=== PATIENT | male | born 1950 | race Caucasian/White ===

== ENCOUNTER 2019-11-06 14:32 | Emergency (ER) | payer OTHER ==
--- NOTE | 2019-11-06 15:19 | EDM.PDOC ---
ED HPI GENERAL MEDICAL PROBLEM - General Chief Complaint: Skin Complaint Stated Complaint: CELLULITIES Time Seen by Provider: 11/06/19 15:12 Source of Information: Reports: Patient History Limitations: Reports: No Limitations - History of Present Illness INITIAL COMMENTS - FREE TEXT/NARRATIVE: Patient presents to the ER with warmth and pruritis sensation to left calf x 3- 4 days. He is concerned that cellulitis is developing because he had similar symptoms prior to developing LLE cellulitis 2 years ago. Prior history includes T2DM, RLE DVT and Right THR 08/2018. Denies fevers or chills. Duration: Day(s): (3) Severity: Mild left side lower leg Pain Score (Numeric/FACES): 10 - Related Data Allergies Allergy/AdvReac Type Severity Reaction Status Date / Time ampicillin Allergy Cannot Verified 11/06/19 15:43 Remember clindamycin Allergy Cannot Verified 11/06/19 15:43 Remember codeine Allergy Cannot Verified 11/06/19 15:43 Remember imipramine HCl Allergy Cannot Verified 11/06/19 15:43 [From Tofranil] Remember lithium [Glade] Allergy Cannot Verified 11/06/19 15:43 Remember metformin Allergy Hives Verified 11/06/19 15:43 Penicillins Allergy Swelling Verified 11/06/19 15:43 prednisone Allergy Other Verified 11/06/19 15:43 quetiapine fumarate Allergy Cannot Verified 11/06/19 15:43 [From Seroquel] Remember tramadol Allergy Cannot Verified 11/06/19 15:43 Remember Home Meds: Home Meds Albuterol Sulfate [Albuterol Sulfate HFA] 2 puff INH Q6H PRN 06/11/14 [History] Albuterol/Ipratropium [DuoNeb 3-0.5 MG/3 ML] 3 ml .XX QID PRN #50 neb 06/11/14 [ Rx] Aspirin [Adult Low Dose Aspirin EC] 1 tab PO DAILY 06/11/14 [History] Budesonide/Formoterol [Symbicort 80-4.5 MCG] 2 puff INH BID 06/11/14 [History] Cinnamon [Cinnamon Oil] 1 dose PO DAILY 06/11/14 [History] Finasteride [Proscar] 1 tab PO DAILY 06/11/14 [History] Furosemide [Lasix] 1 tab PO DAILY 06/11/14 [History] Loratadine [Claritin] 1 tab PO DAILY 06/11/14 [History] Multivitamin with Minerals [Ltf-W-Ejjv-Minerals] 1 tab PO DAILY 06/11/14 [ History] Potassium Chloride [Klor-Con 10] 1 tab PO TID 06/11/14 [History] Sennosides [Senna] 1 tab PO BID 06/11/14 [History] Sildenafil [Viagra] 1 tab PO ASDIRECTED PRN 06/11/14 [History] Tamsulosin [Flomax] 2 tab PO BEDTIME 06/11/14 [History] Testosterone Cypionate [Depo-Testosterone] 1 vial IM ASDIRECTED 06/11/14 [ History] Vitamin A Palmitate [Vitamin A] 1 tab PO DAILY 06/11/14 [History] glyBURIDE [Glyburide] 0.5 tab PO BID 06/11/14 [History] Levofloxacin [Levaquin] 500 mg PO DAILY #6 tablet 11/06/19 [Rx] Past Medical History Cardiovascular History: Reports: Blood Clots/VTE/DVT Endocrine/Metabolic History: Reports: Diabetes, Type II ED ROS GENERAL - Review of Systems Review Of Systems: Comprehensive ROS is negative, except as noted in HPI. ED EXAM, SKIN/RASH Exam: See Below Exam Limited By: No Limitations General Appearance: Alert, WD/WN, No Apparent Distress Throat/Mouth: No Airway Compromise Head: Atraumatic, Normocephalic Respiratory/Chest: No Respiratory Distress Peripheral Pulses: 2+: Dorsalis Pedis (L) Extremities: Other (mild tenderness left calf, no erythema or swelling noted.) Neurological: Alert, Normal Cognition, No Motor/Sensory Deficits Skin: Warm, Dry, Intact Course - Vital Signs Last Recorded V/S: Last Vital Signs Temp 36.8 C 11/06/19 14:32 Pulse 88 11/06/19 14:32 Resp 18 11/06/19 14:32 BP 126/52 L 11/06/19 14:32 Pulse Ox 96 11/06/19 14:32 - Orders/Labs/Meds Orders: Active Orders 24 hr Category Date Time Status VL Duplex Lwr Ext Veins Ltd Lt [US] Stat Exams 11/06/19 15:11 Ordered Labs: Laboratory Tests 11/06/19 11/06/19 Range/Units 15:17 15:17 WBC 6.4 (4.5-12.0) X10-3/uL RBC 5.30 (4.30-5.75) x10(6)uL Hgb 13.3 L (13.5-17.8) g/dL Hct 41.6 (30.0-51.3) % MCV 78.4 L (80-96) fL MCH 25.0 L (27.7-33.6) pg MCHC 31.9 L (32.2-35.4) g/dL RDW 15.1 (11.5-15.5) % Plt Count 190 (125-369) X10(3)uL MPV 7.5 (7.4-10.4) fL Neut % (Auto) 76.7 (46-82) % Lymph % (Auto) 15.2 (13-37) % Mcculloch % (Auto) 5.5 (4-12) % Eos % (Auto) 2 (1.0-5.0) % Baso % (Auto) 0 (0-2) % Neut # (Auto) 4.9 (1.6-8.3) # Lymph # (Auto) 1.0 (0.6-5.0) # Mcculloch # (Auto) 0.4 (0.0-1.3) # Eos # (Auto) 0.1 (0.0-0.8) # Baso # (Auto) 0.0 (0.0-0.2) # Sodium 143 (135-145) mmol/L Potassium 4.2 (3.5-5.3) mmol/L Chloride 104 (100-110) mmol/L Carbon Dioxide 34 H (21-32) mmol/L BUN 18 (7-18) mg/dL Creatinine 0.9 (0.70-1.30) mg/dL Est Cr Clr Drug Dosing TNP Estimated GFR (MDRD) > 60 (>60) BUN/Creatinine Ratio 20.0 (9-20) Glucose 118 H (80-116) mg/dL Calcium 9.1 (8.6-10.2) mg/dL - Radiology Interpretation Free Text/Narrative:: LLE venous doppler US: no DVT (per US tech.) - Re-Assessments/Exams Free Text/Narrative Re-Assessment/Exam: 11/06/19 16:39 Will treat with Levaquin for LLE cellulitis as patient's symptoms are similar with prior episode of cellulitis. Departure - Departure Time of Disposition: 16:39 Disposition: Home, Self-Care 01 Condition: Good Clinical Impression: Cellulitis and abscess of left leg - Discharge Information *PRESCRIPTION DRUG MONITORING PROGRAM REVIEWED*: No *COPY OF PRESCRIPTION DRUG MONITORING REPORT IN PATIENT ELINA: Not Applicable Prescriptions: Levofloxacin [Levaquin] 500 mg PO DAILY #6 tablet Instructions: Cellulitis, Adult Referrals: PCP,None [Primary Care Provider] - Forms: ED Department Discharge Additional Instructions: Fill the prescription for Levaquin and take as directed. Follow up with your primary physician in 3-4 days. Return to the ER if symptoms worsen. Sepsis Event Note - Focused Exam Vital Signs: Vital Signs Temp Pulse Resp BP Pulse Ox 11/06/19 14:32 36.8 C 88 18 126/52 L 96 Date Exam was Performed: 11/06/19 Time Exam was Performed: 16:38 - My Orders Last 24 Hours: My Active Orders 11/06/19 15:11 VL Duplex Lwr Ext Veins Ltd Lt [US] Stat - Assessment/Plan Last 24 Hours: My Active Orders 11/06/19 15:11 VL Duplex Lwr Ext Veins Ltd Lt [US] Stat
[2019-11-06] MEDS ORDERED: Levofloxacin 500 MG Tab PO ONE (16:40)
--- NOTE | 2019-11-07 11:43 | US ---
INDICATION: Left leg pain. DUPLEX ULTRASOUND, LEFT LOWER EXTREMITY VEINS: Utilizing 2-D real time, duplex Doppler spectral analysis and color flow imaging, examination of the left lower extremity veins, including the common femoral vein, proximal greater saphenous vein, proximal deep femoral vein, proximal femoral vein, mid femoral vein, distal femoral vein, popliteal vein, posterior tibial vein, anterior tibial vein , and peroneal vein, revealed no evidence of acute deep venous thrombosis or obstruction. Compression views showed no abnormal lack of compression to suggest thrombosis. No evidence of incompetence of the valves was identified. In the popliteal vein, there is suggestion of incomplete compression, although fairly good flow is seen within it. Color flow did not completely fill what appears to be the popliteal vein. This raises question of a small amount of residual deep venous thrombosis from a previous incident. We have no old comparisons on this patient and, in the absence of proof of previous thrombosis in this area, the possibility of an acute DVT is difficult to entirely exclude. This should be correlated clinically. IMPRESSION: Probably no acute left lower extremity DVT. However, it is difficult to entirely exclude a partial deep venous thrombosis at the popliteal vein in this patient. If old examination is available for comparison, it may be helpful for comparison. MTDD
== END 2019-11-06 16:55 | disposition home or self-care (01) ==
LOC: FB.ED 14:32
DX: L02.416 Cutaneous abscess of left lower limb (principal); L03.116 Cellulitis of left lower limb; E11.9 Type 2 diabetes mellitus without complications; Z79.84 Long term (current) use of oral hypoglycemic drugs; Z79.82 Long term (current) use of aspirin; Z79.899 Other long term (current) drug therapy; Z88.5 Allergy status to narcotic agent; Z88.6 Allergy status to analgesic agent; Z88.8 Allergy status to other drugs, medicaments and biological substances
CPT/HCPCS: 36415; 80048; 85025; 93971-LT; 99283; 99284-25; A9270-GY

== ENCOUNTER 2020-12-22 13:41 | Emergency (ER) | payer OTHER ==
[2020-12-22] MEDS ORDERED: Ketorolac 30 MG/ML SDV IM ONE (15:12)
--- NOTE | 2020-12-22 15:23 | EDM.PDOC ---
ED HPI GENERAL MEDICAL PROBLEM - General Chief Complaint: Skin Complaint Stated Complaint: LEFT ANKLE WOUND INFECTION Time Seen by Provider: 12/22/20 14:05 Source of Information: Reports: Patient History Limitations: Reports: No Limitations - History of Present Illness INITIAL COMMENTS - FREE TEXT/NARRATIVE: c/o LLE burning and pain pt lives alone, he bumped his LLE against the corner of a drawer that was pulled out ~2w ago, he is not sure when no d/c, no f/c/d has had inc'd pain and burning in past 2d did have cellulitis and was in hosp at [facility] 2017, apparently had a PIC line, pt thinks he has MRSA, does have allergies to several antxs labs obtained at baseline, WBC/segs are neg, however CRP inc'd 2.2 without comparison 3 findings are suggestive of cellulitis: 1) inc'd pain and burn x 2d, 2) inc'd CRP, 3) inc'd warmth there are VSD changes and there is not convincing change of color between both LEs, however above findings do suggest cellulitis pt has not cover it with a drsg, nor used support stockings, because it is difficulty for him to reach to his ankles pt declined hospitalization for vanco, altho understands that he may need to do so there is no wound clinic at [facility], Melissa at walk-in called re pt, pt prefers f/u local rather than at [facility], does not have local PCP RN Cynthia is planning on using some Aqua-Silver impregnated gauze in the small opening (5 mm across), cover this with a Mepilex drain as it can be left in place and pt does not need to change it, and then wrap the LLE with an Nick wrap pt will need to be seen weekly for CBC, CRP, drsg change for 1-2 weeks, however if he feels worse with increase burning and increase in CRP he will need to be admitted L medial ankle Pain Score (Numeric/FACES): 9 - Related Data Allergies Allergy/AdvReac Type Severity Reaction Status Date / Time ampicillin Allergy Cannot Verified 12/22/20 15:56 Remember clindamycin Allergy Cannot Verified 12/22/20 15:56 Remember codeine Allergy Cannot Verified 12/22/20 15:56 Remember imipramine HCl Allergy Cannot Verified 12/22/20 15:56 [From Tofranil] Remember lithium [Ethete] Allergy Cannot Verified 12/22/20 15:56 Remember metformin Allergy Hives Verified 12/22/20 15:56 Penicillins Allergy Swelling Verified 12/22/20 15:56 prednisone Allergy Other Verified 12/22/20 15:56 quetiapine fumarate Allergy Cannot Verified 12/22/20 15:56 [From Seroquel] Remember tramadol Allergy Cannot Verified 12/22/20 15:56 Remember Home Meds: Home Meds Albuterol Sulfate [Albuterol Sulfate HFA] 2 puff INH Q6H PRN 06/11/14 [History] Albuterol/Ipratropium [DuoNeb 3-0.5 MG/3 ML] 3 ml .XX QID PRN #50 neb 06/11/14 [Rx] Aspirin [Adult Low Dose Aspirin EC] 1 tab PO DAILY 06/11/14 [History] Budesonide/Formoterol [Symbicort 80-4.5 MCG] 2 puff INH BID 06/11/14 [History] Cinnamon [Cinnamon Oil] 1 dose PO DAILY 06/11/14 [History] Finasteride [Proscar] 1 tab PO DAILY 06/11/14 [History] Furosemide [Lasix] 1 tab PO DAILY 06/11/14 [History] Loratadine [Claritin] 1 tab PO DAILY 06/11/14 [History] Multivitamin with Minerals [Leu-L-Aekk-Minerals] 1 tab PO DAILY 06/11/14 [History] Potassium Chloride [Klor-Con 10] 1 tab PO TID 06/11/14 [History] Sennosides [Senna] 1 tab PO BID 06/11/14 [History] Sildenafil [Viagra] 1 tab PO ASDIRECTED PRN 06/11/14 [History] Tamsulosin [Flomax] 2 tab PO BEDTIME 06/11/14 [History] Testosterone Cypionate [Depo-Testosterone] 1 vial IM ASDIRECTED 06/11/14 [Hi story] Vitamin A Palmitate [Vitamin A] 1 tab PO DAILY 06/11/14 [History] glyBURIDE [Glyburide] 0.5 tab PO BID 06/11/14 [History] Levofloxacin [Levaquin] 500 mg PO DAILY #6 tablet 01/19/20 [Rx] Sulfamethoxazole/Trimethoprim [Sulfamethoxazole-Tmp Ds Tablet] 1 each PO BID #20 tablet 12/22/20 [Rx] cephALEXin [Cephalexin] 500 mg PO TID #30 tablet 12/22/20 [Rx] Past Medical History HEENT History: Reports: Other (See Below) Other 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 Cardiovascular History: Reports: Blood Clots/VTE/DVT, Hypertension Respiratory History: Reports: Asthma, COPD, Sleep Apnea Other Respiratory History: uses CPAP @ hx Gastrointestinal History: Reports: Chronic Constipation, GERD Musculoskeletal History: Reports: Arthritis Neurological History: Reports: Concussion, Migraines, Neuropathy, Diabetic Psychiatric History: Reports: Addiction, Depression, Psych Hospitalization(s), PTSD, Suicide Attempt Other Psychiatric History: hx ETOH abuse Endocrine/Metabolic History: Reports: Diabetes, Type II, Obesity/BMI 30+ Hematologic History: Reports: Anemia, Blood Transfusion(s) Oncologic (Cancer) History: Reports: Lymphoma Dermatologic History: Reports: Cellulitis - Infectious Disease History Infectious Disease History: Reports: Mumps - Past Surgical History Head Surgeries/Procedures: Reports: None HEENT Surgical History: Reports: Cataract Surgery, Laser Surgery Other HEENT Surgeries/Procedures: bilat cataract surg, bilat laser surg GI Surgical History: Reports: Colonoscopy, Hernia Repair/Other Musculoskeletal Surgical History: Reports: Hip Replacement Other Musculoskeletal Surgeries/Procedures:: R hip replacement x 3 Social & Family History - Family History Family Medical History: No Pertinent Family History - Tobacco Use Tobacco Use Status *Q: Former Tobacco User Used Tobacco, but Quit: Yes Month/Year Tobacco Last Used: 1968 - Caffeine Use Caffeine Use: Reports: Coffee, Tea - Recreational Drug Use Recreational Drug Use: No ED ROS GENERAL - Review of Systems Review Of Systems: See Below Constitutional: Reports: No Symptoms HEENT: Reports: No Symptoms Respiratory: Reports: No Symptoms Cardiovascular: Reports: No Symptoms Endocrine: Reports: No Symptoms GI/Abdominal: Reports: No Symptoms : Reports: No Symptoms Musculoskeletal: Reports: No Symptoms Skin: Reports: Wound, Other (burn at LLE) Neurological: Reports: No Symptoms Psychiatric: Reports: No Symptoms Hematologic/Lymphatic: Reports: No Symptoms Immunologic: Reports: No Symptoms ED EXAM, SKIN/RASH Exam: See Below Exam Limited By: No Limitations General Appearance: Alert, WD/WN, No Apparent Distress, Other (alert pleasant) Nose: Normal Inspection Throat/Mouth: Normal Voice, No Airway Compromise Head: Atraumatic Neck: Supple, Non-Tender Respiratory/Chest: No Respiratory Distress Cardiovascular: Regular Rate, Rhythm Back Exam: Normal Inspection Extremities: Other (2+ wood induration of both pretib areas with dark discoloration up pretib 2/3rd b/l, possible slight increase red at L ankle altho is subjective, does have mild increase warmth at L ankle c/w R, there is a 5 x 5 full thickness defect in the skin with d/c on the medial aspect above the left lateral malleouls ~15 cm) Course - Vital Signs Last Recorded V/S: Last Vital Signs Temp 36.6 C 12/22/20 13:50 Pulse 81 12/22/20 13:50 Resp 18 12/22/20 13:50 BP 128/62 12/22/20 13:50 Pulse Ox 96 12/22/20 13:50 - Orders/Labs/Meds Labs: Laboratory Tests 12/22/20 12/22/20 Range/Units 14:15 14:15 WBC 5.9 (3.2-10.1) x10-3/uL RBC 5.07 (3.90-5.90) x10(6)uL Hgb 12.3 L (12.9-17.7) g/dL Hct 40.4 (38.3-50.1) % MCV 79.7 L (80.8-98.7) fL MCH 24.4 L (27.0-33.3) pg MCHC 30.6 (28.7-35.3) g/dL RDW 17.5 H (12.4-15.0) % Plt Count 168 (117-477) x10(3)uL MPV 8.0 (6.7-11.0) fL Neut % (Auto) 71.0 (40.3-71.8) % Lymph % (Auto) 16.9 (15.8-45.3) % Douglas % (Auto) 8.7 (5.5-15.2) % Eos % (Auto) 3.1 (0.1-6.8) % Baso % (Auto) 0.3 (0.3-3.8) % Neut # (Auto) 4.2 (1.7-6.9) x10-3/uL Lymph # (Auto) 1.0 (0.5-4.5) x10-3/uL Douglas # (Auto) 0.5 (0.0-1.2) x10-3/uL Eos # (Auto) 0.2 (0.0-0.6) x10-3/uL Baso # (Auto) 0.0 (0.0-0.3) x10-3/uL C-Reactive Protein 2.2 H (0.5-0.9) mg/dL Meds: Medications Discontinued Medications Generic Name Dose Route Start Last Admin Trade Name Freq PRN Reason Stop Dose Admin Ketorolac Tromethamine 30 mg 12/22/20 15:12 12/22/20 15:44 Toradol IM 12/22/20 15:13 30 mg ONETIME ONE Administration - Re-Assessments/Exams Free Text/Narrative Re-Assessment/Exam: 12/22/20 16:20 findings suspicious for cellulitis Departure - Departure Time of Disposition: 16:40 Disposition: Home, Self-Care 01 Clinical Impression: Cellulitis of left lower extremity, Venous stasis dermatitis of both lower extremities, Venous stasis ulcer of ankle, Elevated C-reactive protein (CRP), History of MRSA infection - Discharge Information *PRESCRIPTION DRUG MONITORING PROGRAM REVIEWED*: Not Applicable *COPY OF PRESCRIPTION DRUG MONITORING REPORT IN PATIENT ELINA: Not Applicable Prescriptions: cephALEXin [Cephalexin] 500 mg PO TID #30 tablet Sulfamethoxazole/Trimethoprim [Sulfamethoxazole-Tmp Ds Tablet] 1 each PO BID #20 tablet Instructions: Cellulitis, Adult, Venous Ulcer, Chronic Venous Insufficiency Referrals: Riaz Vail MD [Primary Care Provider] - Forms: ED Department Discharge Additional Instructions: For infection, take cephalexin 500 mg 1 tab 3 times a day for 10 days. For infection, take sulfamethoxazole-trimethoprim DS 1 tab 2 times a day for 10 days. For pain, take acetaminophen 500 mg 2 tabs 4 times a day for 2 days, longer if needed. Keep dressing clean and dry. Go to walk-in clinic in 5 days for repeat blood work (CRP and CBC) and dressing change. Return to Emergency Department if you are feeling worse. Sepsis Event Note (ED) - Evaluation Sepsis Screening Result: No Definite Risk - Focused Exam Vital Signs: Vital Signs Temp Pulse Resp BP Pulse Ox 12/22/20 13:50 36.6 C 81 18 128/62 96
[2020-12-22] MEDS ORDERED: Sulfamethoxazole/Trimethoprim 800-160 MG Tab PO ONE (16:02)
[2020-12-22] MEDS ORDERED: Cephalexin 500 MG Cap PO ONE (16:02)
== END 2020-12-22 17:28 | disposition home or self-care (01) ==
LOC: FB.ED 13:41
DX: I87.2 Venous insufficiency (chronic) (peripheral) (principal); E11.628 Type 2 diabetes mellitus with other skin complications; L03.116 Cellulitis of left lower limb; I83.023 Varicose veins of left lower extremity with ulcer of ankle; L97.329 Non-pressure chronic ulcer of left ankle with unspecified severity; R79.89 Other specified abnormal findings of blood chemistry; E66.9 Obesity, unspecified; J44.9 Chronic obstructive pulmonary disease, unspecified; I10 Essential (primary) hypertension; Z86.14 Personal history of Methicillin resistant Staphylococcus aureus infection; Z88.1 Allergy status to other antibiotic agents; Z88.5 Allergy status to narcotic agent; Z88.8 Allergy status to other drugs, medicaments and biological substances; Z88.0 Allergy status to penicillin; Z79.82 Long term (current) use of aspirin; Z79.899 Other long term (current) drug therapy; Z79.84 Long term (current) use of oral hypoglycemic drugs; Z87.891 Personal history of nicotine dependence
CPT/HCPCS: 36415; 80053; 85025; 86140; 96372; 99283; A9270; J1885

== ENCOUNTER 2021-03-25 13:53 | Inpatient (IN) | payer OTHER, MEDICARE ==
--- NOTE | 2021-03-25 14:17 | EDM.PDOC ---
ED HPI GENERAL MEDICAL PROBLEM - General Chief Complaint: Lower Extremity Injury/Pain Stated Complaint: ANKLE SWELLING Time Seen by Provider: 03/25/21 14:12 Source of Information: Reports: Patient History Limitations: Reports: No Limitations - History of Present Illness INITIAL COMMENTS - FREE TEXT/NARRATIVE: 70-year-old male with history of bilateral running venous stasis disease but with recent left lower leg cellulitis that was MRSA to this hospital about one month ago and his cellulitis and wound improved and he was discharged home. He reports that he had been doing fairly well with continued sores on his legs but no significant drainage until about 2-3 days ago when he began to have feelings of generalized malaise, increased drainage from the sores on his legs that was somewhat purulent and increasing redness that has progressively worsened and progressed up his leg. He also has had increasing pain associated with this and reports his pain as a 10/10. It is sharp and pressure-like. It does radiate up his leg. He also has had subjective fever with chills he has had no nausea or vomiting. He feels somewhat weak all over. He reports that his blood sugars have been elevated in the 200-300 range and they are usually in the 150 range. This has been going on for about the past 2-3 days as well. He reports that he has been drinking a lot more fluids and has been very thirsty and also has noted that he has been urinating more. He has had no dysuria or hematuria. He also feels that he has been somewhat short of breath with activity and feels that his exercise tolerance is off. No chest pain. There are no other associated signs or symptoms. There are no other modifying factors. Onset: Other (3 days ago) Duration: Getting Worse Location: Reports: Lower Extremity, Left Quality: Reports: Pressure, Sharp Severity: Severe Improves with: Reports: None Worsens with: Reports: Other (Palpation), Movement Context: Reports: Other (As above.) Associated Symptoms: Reports: Fever/Chills, Loss of Appetite, Malaise, Shortness of Breath, Weakness, Other (Otherwise as above.) Treatments DIRECTOR EXECUTIVE COMMUNICATIONS: Reports: Other (see below) Other Treatments DIRECTOR EXECUTIVE COMMUNICATIONS: 3 tablets of Aleve every 6 hours Left Lower Leg Pain Score (Numeric/FACES): 10 - Related Data Allergies Allergy/AdvReac Type Severity Reaction Status Date / Time ampicillin Allergy Cannot Verified 12/22/20 15:56 Remember clindamycin Allergy Cannot Verified 12/22/20 15:56 Remember codeine Allergy Cannot Verified 12/22/20 15:56 Remember imipramine HCl Allergy Cannot Verified 12/22/20 15:56 [From Tofranil] Remember lithium [[place]] Allergy Cannot Verified 12/22/20 15:56 Remember metformin Allergy Hives Verified 12/22/20 15:56 Penicillins Allergy Swelling Verified 12/22/20 15:56 prednisone Allergy Other Verified 12/22/20 15:56 quetiapine fumarate Allergy Cannot Verified 12/22/20 15:56 [From Seroquel] Remember tramadol Allergy Cannot Verified 12/22/20 15:56 Remember Home Meds: Home Meds Albuterol Sulfate [Albuterol Sulfate HFA] 2 puff INH Q4H PRN 06/11/14 [History] Finasteride [Proscar] 5 mg PO DAILY 06/11/14 [History] Furosemide [Lasix] 80 mg PO DAILY@0800 06/11/14 [History] Multivitamin with Minerals [Zse-N-Tpqn-Minerals] 1 tab PO DAILY 06/11/14 [History] Tamsulosin [Flomax] 0.4 mg PO BEDTIME 06/11/14 [History] Testosterone Cypionate [Depo-Testosterone] 50 mg IM TU 06/11/14 [History] Alogliptin Benzoate [Alogliptin] 25 mg PO DAILY 12/22/20 [History] Calcium Carbonate [Calcium] 600 mg PO BID 12/22/20 [History] Furosemide [Lasix] 40 mg PO DAILY@1200 12/22/20 [History] Gabapentin [Neurontin] 300 mg PO TID 12/22/20 [History] Omeprazole 20 mg PO BID 12/22/20 [History] Rivaroxaban [Xarelto] 10 mg PO BEDTIME 12/22/20 [History] Vit C/E/Zn/Coppr/Lutein/Zeaxan [Preservision Areds 2 Softgel] 1 each PO BID 12/22/20 [History] Budesonide/Formoterol [Symbicort 160-4.5 MCG] 2 puff IH BID 02/15/21 [History] Ceramide 1,3,6-II/Salicylic/B3 [Cerave SA Cream] 1 applic TOP DAILY 02/15/21 [History] Cholecalciferol (Vitamin D3) [Vitamin D3] 50 mcg PO DAILY 02/15/21 [History] Dextran 70/Hypromellose [Artificial Tears] 1 drop EYEBOTH QID PRN 02/15/21 [History] Insulin Detemir [Levemir Flextouch] 8 units SUBCUT BEDTIME 02/15/21 [History] Naproxen 500 mg PO TID PRN 02/15/21 [History] Sennosides/Docusate Sodium [Senna-S] 2 tab PO BID 02/15/21 [History] Vitamin B Complex 1 tab PO BID 02/15/21 [History] hydrOXYzine HCL [hydrOXYzine] 25 mg PO TID PRN 02/15/21 [History] polyethylene glycoL 3350 [MiraLAX] 17 gm PO DAILY PRN 02/15/21 [History] Past Medical History HEENT History: Reports: Other (See Below) Other 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 Cardiovascular History: Reports: Blood Clots/VTE/DVT, Hypertension Respiratory History: Reports: Asthma, COPD, Sleep Apnea Other Respiratory History: uses CPAP @ hx Gastrointestinal History: Reports: Chronic Constipation, GERD Musculoskeletal History: Reports: Arthritis Neurological History: Reports: Concussion, Migraines, Neuropathy, Diabetic Psychiatric History: Reports: Addiction, Depression, Psych Hospitalization(s), PTSD, Suicide Attempt Other Psychiatric History: hx ETOH abuse Endocrine/Metabolic History: Reports: Diabetes, Type II, Obesity/BMI 30+ Insulin Pump Model and Hot Cell Technician: no Hematologic History: Reports: Anemia, Blood Transfusion(s) Oncologic (Cancer) History: Reports: Lymphoma Dermatologic History: Reports: Cellulitis, Venous Stasis Dermatitis - Infectious Disease History Infectious Disease History: Reports: Mumps - Past Surgical History HEENT Surgical History: Reports: Cataract Surgery, Laser Surgery Other HEENT Surgeries/Procedures: bilat cataract surg, bilat laser surg GI Surgical History: Reports: Colonoscopy, Hernia Repair/Other Musculoskeletal Surgical History: Reports: Hip Replacement Other Musculoskeletal Surgeries/Procedures:: R hip replacement x 3 Social & Family History - Tobacco Use Tobacco Use Status *Q: Unknown Ever Used Tobacco (Nonsmoker since 1968.) - Caffeine Use Caffeine Use: Reports: Coffee - Living Situation & Occupation Occupation: Retired Social History Comment: He is a [place] [employer] Review of Systems - Review of Systems Review Of Systems: See Below Constitutional: Reports: Chills, Fever Eyes: Denies: Blurred Vision, Vision Change Ears: Denies: Tinnitus, Previous Injury Nose: Denies: Congestion, Epistaxis Mouth/Throat: Denies: Lip Swelling, Pain, Painful Swallowing Respiratory: Reports: Shortness of Breath. Denies: Cough Cardiovascular: Denies: Chest Pain, Palpitations GI/Abdominal: Denies: Abdominal Pain, Nausea, Vomiting Genitourinary: Denies: Dysuria, Hematuria Musculoskeletal: Reports: Leg Pain. Denies: Neck Pain Skin: Reports: Wound, Change in Color Neurological: Reports: Weakness (Generalized). Denies: Dizziness, Headache Psychiatric: Denies: Depression, Anxiety ED EXAM, GENERAL - Physical Exam Exam: See Below Exam Limited By: No Limitations General Appearance: Alert, Moderate Distress (Appears in some discomfort is slightly tachycardic.), Obese Eye Exam: Bilateral Eye: EOMI, Normal Inspection (Sclera are anicteric), PERRL Ears: Normal External Exam, Hearing Grossly Normal Ear Exam: Bilateral Ear: Auricle Normal Nose: Normal Inspection, Normal Mucosa, No Blood Throat/Mouth: Normal Voice, No Airway Compromise, Other (Dry mucous membranes) Head: Atraumatic, Normocephalic Neck: Normal Inspection, Supple, Non-Tender, Full Range of Motion Respiratory/Chest: No Respiratory Distress, Lungs Clear, Normal Breath Sounds, No Accessory Muscle Use, Chest Non-Tender Cardiovascular: Normal Peripheral Pulses, No Murmur, Tachycardia Peripheral Pulses: 2+: Radial (L), Radial (R) GI/Abdominal: Normal Bowel Sounds, Soft, Non-Tender, No Mass Back Exam: Normal Inspection Extremities: Normal Capillary Refill, Increased Warmth, Redness, Other (Left low er extremity cellulitis with open wounds. Chronic venous stasis changes in both lower legs.) Neurological: Alert, Oriented, CN II-XII Intact, No Motor/Sensory Deficits Psychiatric: Normal Affect Skin Exam: Warm, Erythema, Increased Warmth, Wound/Incision #1 Interpretation EKG Date: 03/25/21 Time: 15:22 Rhythm: NSR Rate (Beats/Min): 90 Hoffmeister: LAD-Left Hoffmeister Deviation P-Wave: Present QRS: Normal ST-T: Normal QT: Normal Comparison: NA - No Prior EKG EKG Interpretation Comments: Abnormal R-wave progression with early transition Course - Vital Signs Last Recorded V/S: Last Vital Signs Temp 37.1 C 03/26/21 00:00 Pulse 82 03/26/21 00:00 Resp 17 03/26/21 00:00 BP 112/54 L 03/26/21 00:00 Pulse Ox 98 03/26/21 00:00 - Orders/Labs/Meds Orders: Active Orders 24 hr Category Date Time Status Tibia Fibula Lt [CR] Stat Exams 03/25/21 14:29 Taken CULTURE BLOOD [BC] Urgent Lab 03/25/21 14:55 Received CULTURE BLOOD [BC] Urgent Lab 03/25/21 15:05 Results Sodium Chloride 0.9% [Normal Saline] 1,000 ml Med 03/25/21 14:45 Active IV ASDIRECTED Sodium Chloride 0.9% [Saline Flush] Med 03/25/21 14:29 Active 10 ml FLUSH ASDIRECTED PRN Blood Culture x2 Reflex Set [OM.PC] Urgent Oth 03/25/21 14:29 Ordered Peripheral IV Insertion Adult [OM.PC] Routine Oth 03/25/21 14:29 Ordered EKG 12 Lead [EK] Routine Ther 03/25/21 14:29 Ordered Medication Orders Hydrocodone Bitart/Acetaminophen (Acetaminophen/Hydrocodone 325-5 Mg Tab) 1 - 2 tab PO Q6H PRN PRN Reason: Pain Last Admin: 03/26/21 00:48 Dose: 1 tab Documented by: Admin: 03/25/21 22:03 Dose: 1 tab Documented by: GRETCHEN Dextrose/Water (50% Dextrose In Water 50 Ml Syringe) 50 ml IVPUSH ASDIRECTED PRN PRN Reason: Hypoglycemia Glucagon (Glucagon,Human Recombinant 1 Mg Vial) 1 mg IM ASDIRECTED PRN PRN Reason: Hypoglycemia Sodium Chloride (Normal Saline) 1,000 mls @ 100 mls/hr IV ASDIRECTED CARO Last Admin: 03/25/21 15:34 Dose: 100 mls/hr Documented by: JUDIE Ceftriaxone Sodium 1 gm/ (Sodium Chloride) 50 mls @ 200 mls/hr IV Q24H [facility] Last Admin: 03/25/21 20:52 Dose: 200 mls/hr Documented by: GRETCHEN Vancomycin HCl 2 gm/ Premix 400 mls @ 200 mls/hr IV Q12H [facility] Last Admin: 03/25/21 22:08 Dose: 200 mls/hr Documented by: GRETCHEN Insulin Human Lispro (Insulin Lispro 100 Unit/Ml 3 Ml Kwikpen) 0 unit SUBCUT TIDMEALS [facility]; Protocol Last Admin: 03/25/21 19:14 Dose: 4 units Documented by: ROSEMARY Cosigned by: TAMRA Saccharomyces Boulardii (Saccharomyces Boulardii (Probiotic) 250 Mg Cap) 250 mg PO BID [facility] Last Admin: 03/25/21 22:03 Dose: 250 mg Documented by: Admin: 03/25/21 19:11 Dose: Not Given Documented by: MARQUIS Sodium Chloride (Sodium Chloride 0.9% 10 Ml Syringe) 10 ml FLUSH ASDIRECTED PRN PRN Reason: Keep Vein Open Vancomycin HCl (Pharmacy To Dose - Vancomycin) 1 dose .XX ASDIRECTED [facility] Labs: Laboratory Tests 03/25/21 03/25/21 03/25/21 Range/Units 14:55 14:55 14:55 WBC 13.6 H (3.2-10.1) x10-3/uL RBC 5.63 (3.90-5.90) x10(6)uL Hgb 13.9 (12.9-17.7) g/dL Hct 44.6 (38.3-50.1) % MCV 79.1 L (80.8-98.7) fL MCH 24.7 L (27.0-33.3) pg MCHC 31.2 (28.7-35.3) g/dL RDW 15.9 H (12.4-15.0) % Plt Count 154 (117-477) x10(3)uL MPV 7.8 (6.7-11.0) fL Add Manual Diff Yes Neutrophils % (Manual) 81 (46-82) % Band Neutrophils % 3 (0-6) % Lymphocytes % (Manual) 11 L (13-37) % Monocytes % (Manual) 5 (4-12) % POC VBG pH (7.32-7.43) pH Units POC VBG pCO2 (41-51) mmHg POC VBG HCO3 (21-29) mmol/L VBG Base Excess (-2-3) mmol/L O2 Delivery Device Sodium 137 (135-145) mmol/L Potassium 4.0 (3.5-5.3) mmol/L Chloride 98 L (100-110) mmol/L Carbon Dioxide 34 H (21-32) mmol/L BUN 27 H D (7-18) mg/dL Creatinine 1.3 (0.70-1.30) mg/dL Est Cr Clr Drug Dosing 57.21 mL/min Estimated GFR (MDRD) 54 L (>60) BUN/Creatinine Ratio 20.8 H (9-20) Glucose 196 H (80-116) mg/dL Lactic Acid (0.4-2.0) mmol/L Calcium 8.6 (8.6-10.2) mg/dL Magnesium 1.9 (1.8-2.5) mg/dL Total Bilirubin 0.6 (0.1-1.3) mg/dL AST 25 D (5-25) IU/L ALT 40 H D (12-36) U/L Alkaline Phosphatase 95 (56-112) IU/L Troponin I 6.7 (4.0-60.3) pg/mL C-Reactive Protein 20.6 H* (0.5-0.9) mg/dL NT-Pro-B Natriuret Pep 157 H (<=125) pg/mL Total Protein 7.1 (6.0-8.0) g/dL Albumin 3.3 (3.2-4.6) g/dL Globulin 3.8 g/dL Albumin/Globulin Ratio 0.9 03/25/21 03/25/21 Range/Units 14:55 14:55 WBC (3.2-10.1) x10-3/uL RBC (3.90-5.90) x10(6)uL Hgb (12.9-17.7) g/dL Hct (38.3-50.1) % MCV (80.8-98.7) fL MCH (27.0-33.3) pg MCHC (28.7-35.3) g/dL RDW (12.4-15.0) % Plt Count (117-477) x10(3)uL MPV (6.7-11.0) fL Add Manual Diff Neutrophils % (Manual) (46-82) % Band Neutrophils % (0-6) % Lymphocytes % (Manual) (13-37) % Monocytes % (Manual) (4-12) % POC VBG pH 7.50 H (7.32-7.43) pH Units POC VBG pCO2 40 L (41-51) mmHg POC VBG HCO3 32 H (21-29) mmol/L VBG Base Excess 9 H (-2-3) mmol/L O2 Delivery Device Room air Sodium (135-145) mmol/L Potassium (3.5-5.3) mmol/L Chloride (100-110) mmol/L Carbon Dioxide (21-32) mmol/L BUN (7-18) mg/dL Creatinine (0.70-1.30) mg/dL Est Cr Clr Drug Dosing mL/min Estimated GFR (MDRD) (>60) BUN/Creatinine Ratio (9-20) Glucose (80-116) mg/dL Lactic Acid 1.4 (0.4-2.0) mmol/L Calcium (8.6-10.2) mg/dL Magnesium (1.8-2.5) mg/dL Total Bilirubin (0.1-1.3) mg/dL AST (5-25) IU/L ALT (12-36) U/L Alkaline Phosphatase (56-112) IU/L Troponin I (4.0-60.3) pg/mL C-Reactive Protein (0.5-0.9) mg/dL NT-Pro-B Natriuret Pep (<=125) pg/mL Total Protein (6.0-8.0) g/dL Albumin (3.2-4.6) g/dL Globulin g/dL Albumin/Globulin Ratio Meds: Medications Generic Name Dose Route Start Last Admin Trade Name Freq PRN Reason Stop Dose Admin Hydrocodone Bitart/Acetaminophen 1 - 2 tab 03/25/21 21:44 03/26/21 00:48 Acetaminophen/Hydrocodone 325-5 Mg Tab PO 1 tab Q6H PRN Administration Pain Dextrose/Water 50 ml 03/25/21 16:54 50% Dextrose In Water 50 Ml Syringe IVPUSH ASDIRECTED PRN Hypoglycemia Glucagon 1 mg 03/25/21 16:54 Glucagon,Human Recombinant 1 Mg Vial IM ASDIRECTED PRN Hypoglycemia Sodium Chloride 1,000 mls @ 100 mls/hr 03/25/21 14:45 03/25/21 15:34 Normal Saline IV 100 mls/hr ASDIRECTED CARO Administration Ceftriaxone Sodium 1 gm/ 50 mls @ 200 mls/hr 03/25/21 20:00 03/25/21 20:52 Sodium Chloride IV 200 mls/hr Q24H [facility]O Administration Vancomycin HCl 2 gm/ Premix 400 mls @ 200 mls/hr 03/25/21 21:00 03/25/21 22:08 IV 200 mls/hr Q12H [facility]O Administration Insulin Human Lispro 0 unit 03/25/21 18:00 03/25/21 19:14 Insulin Lispro 100 Unit/Ml 3 Ml Kwikpen SUBCUT 4 units TIDMEALS CARO Administration Protocol Saccharomyces Boulardii 250 mg 03/25/21 17:00 03/25/21 22:03 Saccharomyces Boulardii (Probiotic) 250 Mg Cap PO 250 mg BID CARO Administration Sodium Chloride 10 ml 03/25/21 14:29 Sodium Chloride 0.9% 10 Ml Syringe FLUSH ASDIRECTED PRN Keep Vein Open Vancomycin HCl 1 dose 03/25/21 17:00 Pharmacy To Dose - Vancomycin .XX ASDIRECTED CARO Discontinued Medications Generic Name Dose Route Start Last Admin Trade Name Freq PRN Reason Stop Dose Admin Sodium Chloride 500 mls @ 999 mls/hr 03/25/21 14:32 03/25/21 15:05 Normal Saline IV 03/25/21 15:02 999 mls/hr .BOLUS ONE Administration Ceftriaxone Sodium 1 gm/ 50 mls @ 200 mls/hr 03/25/21 17:00 03/25/21 19:47 Sodium Chloride IV Not Given Q24H CARO Vancomycin HCl 2 gm/ Premix 400 mls @ 200 mls/hr 03/25/21 18:00 03/25/21 19:47 IV Not Given Q12H CARO Oxycodone/Acetaminophen 2 tab 03/25/21 14:32 03/25/21 15:04 Acetaminophen/Oxycodone 325-5 Mg Tab PO 03/25/21 14:33 2 tab ONETIME STA Administration - Radiology Interpretation Free Text/Narrative:: X-ray of left tib-fib shows no acute bony abnormality. There is no subcutaneous gas noted. - Re-Assessments/Exams Free Text/Narrative Re-Assessment/Exam: 03/25/21 15:55: Patient's blood blood cell count was 13.6. His CRP was 20.6. His glucose was 196. His BUN was 27 and his creatinine was 1.3. His lactic acid was 1.4. X-ray of his left tib-fib showed no subcutaneous gas. The patient does have recurrent cellulitis in his left lower extremity that is advancing and is associated with early sepsis was some tachycardia and some acute kidney injury. He also has uncontrolled diabetes mellitus. He will require admission with IV antibiotics and IV fluids with control of his diabetes mellitus. This plan of care will require at least a 2 midnight hospital stay. The patient desires to be admitted to [facility] [place] for this problem. I have called and left a message with Dr. Broussard and am awaiting his call back to discuss admission of this patient to [facility] [place]. 03/25/21 16:20: I discussed patient's case with Dr. Broussard. At the patient. I will place interim orders including antibiotic orders for Rocephin and vancomycin (the patient did have MRSA with his last admission one month ago). The patient is in agreement with the plan for admission. He has received 1 L bolus of normal saline. His pulse rate is now in the 90s. He has remained awake, alert and appropriate. His blood pressure has remained stable. 03/25/21 16:45: A rapid Covid has been ordered and is pending. It should be noted that the patient has been vaccinated against Covid with 2 doses of vaccine. Departure - Departure Time of Disposition: 16:24 Disposition: Admitted As Inpatient 65 Condition: Fair Clinical Impression: Cellulitis of left lower leg Diabetes mellitus type 2, uncontrolled Qualifiers: Glycemic state: with hyperglycemia Qualified Code(s): E11.65 - Type 2 diabetes mellitus with hyperglycemia Sepsis Qualifiers: Sepsis type: sepsis due to unspecified organism Sepsis acute organ dysfunction status: without acute organ dysfunction Qualified Code(s): A41.9 - Sepsis, unspecified organism - Discharge Information Sepsis Event Note (ED) - Evaluation Sepsis Screening Result: Possible Sepsis Risk - My Orders Last 24 Hours: My Active Orders 03/25/21 14:29 Tibia Fibula Lt [CR] Stat Sodium Chloride 0.9% [Saline Flush] 10 ml FLUSH ASDIRECTED PRN Blood Culture x2 Reflex Set [OM.PC] Urgent Peripheral IV Insertion Adult [OM.PC] Routine EKG 12 Lead [EK] Routine 03/25/21 14:45 Sodium Chloride 0.9% [Normal Saline] 1,000 ml IV ASDIRECTED 03/25/21 14:55 CULTURE BLOOD [BC] Urgent 03/25/21 15:05 CULTURE BLOOD [BC] Urgent - Assessment/Plan Last 24 Hours: My Active Orders 03/25/21 14:29 Tibia Fibula Lt [CR] Stat Sodium Chloride 0.9% [Saline Flush] 10 ml FLUSH ASDIRECTED PRN Blood Culture x2 Reflex Set [OM.PC] Urgent Peripheral IV Insertion Adult [OM.PC] Routine EKG 12 Lead [EK] Routine 03/25/21 14:45 Sodium Chloride 0.9% [Normal Saline] 1,000 ml IV ASDIRECTED 03/25/21 14:55 CULTURE BLOOD [BC] Urgent 03/25/21 15:05 CULTURE BLOOD [BC] Urgent
[2021-03-25] MEDS ORDERED: Sodium Chloride 0.9% 500 ML IV ONE (14:32)
[2021-03-25] MEDS ORDERED: Acetaminophen/oxyCODONE 325-5 MG Tab PO STA (14:32)
[2021-03-25] MEDS: Sodium Chloride 0.9% 1,000 ML IV SCH (15:34)
[2021-03-25 15:57] LABS: BASE EXCESS VENOUS,POC 9 mmol/L (-2-3); HCO3 VENOUS,POC 32 mmol/L (21-29); PCO2 VENOUS,POC 40 mmHg (41-51)
[2021-03-25] MEDS ORDERED: Glucagon,Human Recombinant 1 MG Vial IM PRN (16:54)
[2021-03-25] MEDS ORDERED: 50% Dextrose in Water 50 ML Syringe IVPUSH PRN (16:54)
[2021-03-25] MEDS ORDERED: cefTRIAXone 1 GM in Sodium Chloride 0.9% 50 ML IV SCH ×2 (17:00→20:00)
--- NOTE | 2021-03-25 17:55 | PCM.HP.2 ---
H&P History of Present Illness - General Date of Service: 03/25/21 Admit Problem/Dx: Admission Diagnosis/Problem Admission Diagnosis/Problem Cellulitis of left lower leg Source of Information: Patient History Limitations: Reports: No Limitations - History of Present Illness Initial Comments - Free Text/Narative: This is a 70-year-old male patient that is for a history of erythema on his left leg and then 1 day fever or chills and fevers. He had cellulitis he was hospitalized about a month ago. He said is similar antibiotics and had a refill. And still the back. He has history of diabetes. He does have some left leg pain. He has left leg weeping. He denies chest pain, shortness of breath. Left Lower Leg Pain Score (Numeric/FACES): 10 - Related Data Allergies/Adverse Reactions: Allergies Allergy/AdvReac Type Severity Reaction Status Date / Time ampicillin Allergy Cannot Verified 12/22/20 15:56 Remember clindamycin Allergy Cannot Verified 12/22/20 15:56 Remember codeine Allergy Cannot Verified 12/22/20 15:56 Remember imipramine HCl Allergy Cannot Verified 12/22/20 15:56 [From Tofranil] Remember lithium [Casanova] Allergy Cannot Verified 12/22/20 15:56 Remember metformin Allergy Hives Verified 12/22/20 15:56 Penicillins Allergy Swelling Verified 12/22/20 15:56 prednisone Allergy Other Verified 12/22/20 15:56 quetiapine fumarate Allergy Cannot Verified 12/22/20 15:56 [From Seroquel] Remember tramadol Allergy Cannot Verified 12/22/20 15:56 Remember Home Medications: Home Meds Albuterol Sulfate [Albuterol Sulfate HFA] 2 puff INH Q4H PRN 06/11/14 [History] Finasteride [Proscar] 5 mg PO DAILY 06/11/14 [History] Furosemide [Lasix] 80 mg PO DAILY@0800 06/11/14 [History] Multivitamin with Minerals [Xpz-I-Dnew-Minerals] 1 tab PO DAILY 06/11/14 [History] Sildenafil [Viagra] 50 mg PO ASDIRECTED PRN 06/11/14 [History] Tamsulosin [Flomax] 0.4 mg PO BEDTIME 06/11/14 [History] Testosterone Cypionate [Depo-Testosterone] 50 mg IM TU 06/11/14 [History] Alogliptin Benzoate [Alogliptin] 25 mg PO DAILY 12/22/20 [History] Calcium Carbonate [Calcium] 600 mg PO BID 12/22/20 [History] Furosemide [Lasix] 40 mg PO DAILY@1200 12/22/20 [History] Gabapentin [Neurontin] 300 mg PO TID 12/22/20 [History] Lidocaine [Lidocaine Pain Relief] 3 each TP DAILY 12/22/20 [History] Omeprazole 20 mg PO BID 12/22/20 [History] Rivaroxaban [Xarelto] 10 mg PO BEDTIME 12/22/20 [History] Vit C/E/Zn/Coppr/Lutein/Zeaxan [Preservision Areds 2 Softgel] 1 each PO BID 12/22/20 [History] Acetaminophen [Tylenol] 650 mg PO Q6H PRN 02/15/21 [History] Budesonide/Formoterol [Symbicort 160-4.5 MCG] 2 puff IH BID 02/15/21 [History] Ceramide 1,3,6-II/Salicylic/B3 [Cerave SA Cream] 1 applic TOP DAILY 02/15/21 [History] Cholecalciferol (Vitamin D3) [Vitamin D3] 50 mcg PO DAILY 02/15/21 [History] Dextran 70/Hypromellose [Artificial Tears] 1 drop EYEBOTH QID PRN 02/15/21 [History] HYDROmorphone [Dilaudid] 1 mg PO Q4H PRN 02/15/21 [History] Insulin Detemir [Levemir Flextouch] 8 units SUBCUT BEDTIME 02/15/21 [History] Naproxen 500 mg PO DAILY PRN 02/15/21 [History] Sennosides/Docusate Sodium [Senna-S] 1 tab PO DAILY PRN 02/15/21 [History] Sennosides/Docusate Sodium [Senna-S] 2 tab PO DAILY 02/15/21 [History] Vitamin B Complex 1 tab PO BID 02/15/21 [History] guaiFENesin 10 ml PO Q6H PRN 02/15/21 [History] hydrOXYzine HCL [hydrOXYzine] 25 mg PO TID PRN 02/15/21 [History] polyethylene glycoL 3350 [MiraLAX] 17 gm PO DAILY PRN 02/15/21 [History] cephALEXin [Keflex] 500 mg PO QID #28 cap 02/22/21 [Rx] Past Medical History - Past Health History Medical/Surgical History: Denies Medical/Surgical History HEENT History: Reports: Other (See Below) Other 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 Cardiovascular History: Reports: Blood Clots/VTE/DVT, Hypertension Respiratory History: Reports: Asthma, COPD, Sleep Apnea Other Respiratory History: uses CPAP @ hx Gastrointestinal History: Reports: Chronic Constipation, GERD Musculoskeletal History: Reports: Arthritis Neurological History: Reports: Concussion, Migraines, Neuropathy, Diabetic Psychiatric History: Reports: Addiction, Depression, Psych Hospitalization(s), PTSD, Suicide Attempt Other Psychiatric History: hx ETOH abuse Endocrine/Metabolic History: Reports: Diabetes, Type II, Obesity/BMI 30+ Insulin Pump Model and Coal Washer Tender: no Hematologic History: Reports: Anemia, Blood Transfusion(s) Oncologic (Cancer) History: Reports: Lymphoma Dermatologic History: Reports: Cellulitis - Infectious Disease History Infectious Disease History: Reports: Mumps - Past Surgical History Head Surgeries/Procedures: Reports: None HEENT Surgical History: Reports: Cataract Surgery, Laser Surgery Other HEENT Surgeries/Procedures: bilat cataract surg, bilat laser surg GI Surgical History: Reports: Colonoscopy, Hernia Repair/Other Musculoskeletal Surgical History: Reports: Hip Replacement Other Musculoskeletal Surgeries/Procedures:: R hip replacement x 3 Social & Family History - Family History Family Medical History: No Pertinent Family History - Tobacco Use Tobacco Use Status *Q: Never Tobacco User - Caffeine Use Caffeine Use: Reports: Coffee - Recreational Drug Use Recreational Drug Use: No H&P Review of Systems - Review of Systems: Review Of Systems: See Below General: Reports: Fever, Chills HEENT: Reports: No Symptoms Pulmonary: Reports: No Symptoms Cardiovascular: Reports: No Symptoms Gastrointestinal: Reports: No Symptoms Genitourinary: Reports: No Symptoms Musculoskeletal: Reports: Joint Pain Skin: Reports: Erythema, Wound Psychiatric: Reports: No Symptoms Neurological: Reports: No Symptoms Hematologic/Lymphatic: Reports: No Symptoms Immunologic: Reports: No Symptoms Exam - Exam Exam: See Below - Vital Signs Vital Signs: Last Vital Signs Temp 98.5 F 03/25/21 13:54 Pulse 96 03/25/21 15:31 Resp 20 03/25/21 15:31 BP 111/84 03/25/21 15:31 Pulse Ox 96 03/25/21 15:31 Weight: 297 lb - Exam General: Alert, Oriented, Cooperative HEENT: Hearing Intact, Posterior Pharynx Clear Neck: Supple, Trachea Midline Lungs: Clear to Auscultation, Normal Respiratory Effort Cardiovascular: Regular Rate, Regular Rhythm. No: Systolic Murmur GI/Abdominal Exam: Normal Bowel Sounds, Soft, Non-Tender, No Distention Back Exam: Normal Inspection Extremities: No Pedal Edema Skin: Other (Erythema to the tibial tuberosity encompassing the foot the left lower leg. On the medial aspects of open wounds or draining.) Neurological: Normal Speech Neuro Extensive - Mental Status: Alert, Oriented x3, Normal Mood/Affect, Normal Cognition, Memory Intact Psychiatric: Alert, Normal Affect, Normal Mood - Patient Data Lab Results Last 24 hrs: Laboratory Results - last 24 hr 03/25/21 03/25/21 03/25/21 Range/Units 14:55 14:55 14:55 WBC 13.6 H (3.2-10.1) x10-3/uL RBC 5.63 (3.90-5.90) x10(6)uL Hgb 13.9 (12.9-17.7) g/dL Hct 44.6 (38.3-50.1) % MCV 79.1 L (80.8-98.7) fL MCH 24.7 L (27.0-33.3) pg MCHC 31.2 (28.7-35.3) g/dL RDW 15.9 H (12.4-15.0) % Plt Count 154 (117-477) x10(3)uL MPV 7.8 (6.7-11.0) fL Add Manual Diff Yes Neutrophils % (Manual) 81 (46-82) % Band Neutrophils % 3 (0-6) % Lymphocytes % (Manual) 11 L (13-37) % Monocytes % (Manual) 5 (4-12) % POC VBG pH (7.32-7.43) pH Units POC VBG pCO2 (41-51) mmHg POC VBG HCO3 (21-29) mmol/L VBG Base Excess (-2-3) mmol/L O2 Delivery Device Sodium 137 (135-145) mmol/L Potassium 4.0 (3.5-5.3) mmol/L Chloride 98 L (100-110) mmol/L Carbon Dioxide 34 H (21-32) mmol/L BUN 27 H D (7-18) mg/dL Creatinine 1.3 (0.70-1.30) mg/dL Est Cr Clr Drug Dosing 57.21 mL/min Estimated GFR (MDRD) 54 L (>60) BUN/Creatinine Ratio 20.8 H (9-20) Glucose 196 H (80-116) mg/dL Lactic Acid (0.4-2.0) mmol/L Calcium 8.6 (8.6-10.2) mg/dL Magnesium 1.9 (1.8-2.5) mg/dL Total Bilirubin 0.6 (0.1-1.3) mg/dL AST 25 D (5-25) IU/L ALT 40 H D (12-36) U/L Alkaline Phosphatase 95 (56-112) IU/L Troponin I 6.7 (4.0-60.3) pg/mL C-Reactive Protein 20.6 H* (0.5-0.9) mg/dL NT-Pro-B Natriuret Pep 157 H (<=125) pg/mL Total Protein 7.1 (6.0-8.0) g/dL Albumin 3.3 (3.2-4.6) g/dL Globulin 3.8 g/dL Albumin/Globulin Ratio 0.9 SARS-CoV-2 RNA (OPAL) (NEGATIVE) 03/25/21 03/25/21 03/25/21 Range/Units 14:55 14:55 16:42 WBC (3.2-10.1) x10-3/uL RBC (3.90-5.90) x10(6)uL Hgb (12.9-17.7) g/dL Hct (38.3-50.1) % MCV (80.8-98.7) fL MCH (27.0-33.3) pg MCHC (28.7-35.3) g/dL RDW (12.4-15.0) % Plt Count (117-477) x10(3)uL MPV (6.7-11.0) fL Add Manual Diff Neutrophils % (Manual) (46-82) % Band Neutrophils % (0-6) % Lymphocytes % (Manual) (13-37) % Monocytes % (Manual) (4-12) % POC VBG pH 7.50 H (7.32-7.43) pH Units POC VBG pCO2 40 L (41-51) mmHg POC VBG HCO3 32 H (21-29) mmol/L VBG Base Excess 9 H (-2-3) mmol/L O2 Delivery Device Room air Sodium (135-145) mmol/L Potassium (3.5-5.3) mmol/L Chloride (100-110) mmol/L Carbon Dioxide (21-32) mmol/L BUN (7-18) mg/dL Creatinine (0.70-1.30) mg/dL Est Cr Clr Drug Dosing mL/min Estimated GFR (MDRD) (>60) BUN/Creatinine Ratio (9-20) Glucose (80-116) mg/dL Lactic Acid 1.4 (0.4-2.0) mmol/L Calcium (8.6-10.2) mg/dL Magnesium (1.8-2.5) mg/dL Total Bilirubin (0.1-1.3) mg/dL AST (5-25) IU/L ALT (12-36) U/L Alkaline Phosphatase (56-112) IU/L Troponin I (4.0-60.3) pg/mL C-Reactive Protein (0.5-0.9) mg/dL NT-Pro-B Natriuret Pep (<=125) pg/mL Total Protein (6.0-8.0) g/dL Albumin (3.2-4.6) g/dL Globulin g/dL Albumin/Globulin Ratio SARS-CoV-2 RNA (OPAL) Negative (NEGATIVE) Result Diagrams: 03/25/21 14:55 03/25/21 14:55 Shai Results Last 24 hrs: Microbiology 03/25/21 15:05 Anaerobic Blood Culture - Final Blood - Venous - Lab Draw Sepsis Event Note - Evaluation Sepsis Screening Result: Possible Sepsis Risk - Focused Exam Vital Signs: Vital Signs Temp Pulse Resp BP Pulse Ox 03/25/21 15:31 96 20 111/84 96 03/25/21 15:01 93 20 132/69 99 03/25/21 14:38 66 20 167/64 H 99 03/25/21 14:31 102 H 20 125/68 93 L 03/25/21 14:00 105 H 20 132/65 93 L 03/25/21 13:57 108 H 20 111/57 L 94 L 03/25/21 13:54 98.5 F 107 H 24 H 123/63 96 - Problem List (1) Palliative care status SNOMED Code(s): 380614761 ICD Code: Z51.5 - ENCOUNTER FOR PALLIATIVE CARE Status: Acute Current Visit: Yes (2) Cellulitis of left lower leg SNOMED Code(s): 981809790 ICD Code: L03.116 - CELLULITIS OF LEFT LOWER LIMB Status: Acute Current Visit: Yes (3) Diabetes mellitus type 2, uncontrolled SNOMED Code(s): 770995770, 209637319 ICD Code: E11.65 - TYPE 2 DIABETES MELLITUS WITH HYPERGLYCEMIA Status: Acute Current Visit: Yes Qualifiers: Glycemic state: with hyperglycemia Qualified Code(s): E11.65 - Type 2 diabetes mellitus with hyperglycemia (4) History of MRSA infection SNOMED Code(s): 972484434, 309119704 ICD Code: Z86.14 - PERSONAL HISTORY OF METHICILLIN RESIS STAPH INFECTION Status: Acute Current Visit: No (5) Pain in left lower leg SNOMED Code(s): 622869009561108 ICD Code: M79.662 - PAIN IN LEFT LOWER LEG Status: Acute Current Visit: No (6) Venous stasis dermatitis of both lower extremities SNOMED Code(s): 43857283 ICD Code: I87.2 - VENOUS INSUFFICIENCY (CHRONIC) (PERIPHERAL) Status: Acute Current Visit: No (7) Venous stasis ulcer of ankle SNOMED Code(s): 395334239 ICD Code: I83.003 - VARICOSE VEINS OF UNSP LOWER EXTREMITY WITH ULCER OF ANKLE; L97.309 - NON-PRESSURE CHRONIC ULCER OF UNSP ANKLE WITH UNSP SEVERITY Status: Acute Current Visit: No Problem List Initiated/Reviewed/Updated: Yes Orders Last 24hrs: Active Orders 24 hr Category Date Time Status Admission Status [Patient Status] [ADT] Routine ADT 03/25/21 16:24 Active Patient Status Manage Transfer [TRANSFER] Routine ADT 03/25/21 16:57 Active Accu Check [Blood Glucose Check, Bedside] [] BIDMEALS Care 03/25/21 17:47 Active Blood Glucose Check, Bedside [] QIDACANDBED Care 03/25/21 16:46 Active EKG Documentation Completion [RC] ASDIRECTED Care 03/25/21 14:31 Active Intake and Output [RC] QSHIFT Care 03/25/21 16:46 Active Up ad Freida [RC] ASDIRECTED Care 03/25/21 16:46 Active Consistent Carbohydrate Diet [DIET] Diet 03/26/21 Breakfast Ordered Tibia Fibula Lt [CR] Stat Exams 03/25/21 14:29 Ordered CULTURE BLOOD [BC] Urgent Lab 03/25/21 14:55 Received CULTURE BLOOD [BC] Urgent Lab 03/25/21 15:05 Results VANCOMYCIN TROUGH [CHEM] Timed Lab 03/27/21 05:30 Ordered Dextrose 50% in Water Med 03/25/21 16:54 Active 50 ml IVPUSH ASDIRECTED PRN Glucagon,Human Recombinant [GlucaGen] Med 03/25/21 16:54 Active 1 mg IM ASDIRECTED PRN Insulin Lispro [HumaLOG] Med 03/25/21 18:00 Active See Protocol SUBCUT TIDMEALS Pharmacy to Dose - Vancomycin Med 03/25/21 17:00 Pending 1 dose .XX ASDIRECTED Saccharomyces Boulardii [Florastor] Med 03/25/21 17:00 Active 250 mg PO BID Sodium Chloride 0.9% [Normal Saline] 1,000 ml Med 03/25/21 14:45 Active IV ASDIRECTED Sodium Chloride 0.9% [Saline Flush] Med 03/25/21 14:29 Active 10 ml FLUSH ASDIRECTED PRN VANCOmycin 2 GM/400 ML 2 gm Med 03/25/21 18:00 Active Premix Bag 1 bag IV Q12H cefTRIAXone [Rocephin] 1 gm Med 03/25/21 17:00 Active Sodium Chloride 0.9% [Normal Saline] 50 ml IV Q24H Blood Culture x2 Reflex Set [OM.PC] Urgent Oth 03/25/21 14:29 Ordered Peripheral IV Insertion Adult [OM.PC] Routine Oth 03/25/21 14:29 Ordered Resuscitation Status Stat Resus Stat 03/25/21 16:46 Ordered EKG 12 Lead [EK] Routine Ther 03/25/21 14:29 Ordered Medication Orders Dextrose/Water (50% Dextrose In Water 50 Ml Syringe) 50 ml IVPUSH ASDIRECTED PRN PRN Reason: Hypoglycemia Glucagon (Glucagon,Human Recombinant 1 Mg Vial) 1 mg IM ASDIRECTED PRN PRN Reason: Hypoglycemia Sodium Chloride (Normal Saline) 1,000 mls @ 100 mls/hr IV ASDIRECTED [facility] Last Admin: 03/25/21 15:34 Dose: 100 mls/hr Documented by: JUDIE Ceftriaxone Sodium 1 gm/ (Sodium Chloride) 50 mls @ 200 mls/hr IV Q24H CARO Vancomycin HCl 2 gm/ Premix 400 mls @ 200 mls/hr IV Q12H [facility] Insulin Human Lispro (Insulin Lispro 100 Unit/Ml 3 Ml Kwikpen) 0 unit SUBCUT TIDMEALS [facility]; Protocol Saccharomyces Boulardii (Saccharomyces Boulardii (Probiotic) 250 Mg Cap) 250 mg PO BID [facility] Sodium Chloride (Sodium Chloride 0.9% 10 Ml Syringe) 10 ml FLUSH ASDIRECTED PRN PRN Reason: Keep Vein Open Vancomycin HCl (Pharmacy To Dose - Vancomycin) 1 dose .XX ASDIRECTED [facility] Assessment/Plan Comment:: 1. Admit to inpatient 2. Rocephin and ankle. Patient's allergic to ampicillin. 3. He's already on anticoagulation for DVT prophylaxis will continue. 4. Diabetic diet and continue insulin sliding scale. 5. Wound care. 6. Blood cultures and wound culture. 7. Repeat labs in the a.m. 8. Wound care with wet-to-dry dressings. Up ad freida. He may shower. - Mortality Measure Prognosis:: Good
[2021-03-25] MEDS ORDERED: VANCOmycin 2 GM/400 ML 2 GM in Premix Bag 1 BAG IV SCH (18:00)
[2021-03-25] MEDS: Saccharomyces Boulardii (Probiotic) 250 MG Cap PO SCH ×2 (19:11→22:03)
[2021-03-25] MEDS ORDERED: Insulin Lispro 100 Unit/ML 3 ML KwikPen SUBCUT ONE (19:11)
[2021-03-25] MEDS: Insulin Lispro 100 Unit/ML 3 ML KwikPen SUBCUT SCH (19:14)
[2021-03-25] MEDS: Acetaminophen/HYDROcodone 325-5 MG Tab PO PRN (22:03)
[2021-03-25] MEDS: VANCOmycin 2 GM/400 ML 2 GM in Premix Bag 1 BAG IV SCH (22:08)
[2021-03-26] MEDS: Acetaminophen/HYDROcodone 325-5 MG Tab PO PRN ×2 (00:48→06:09)
[2021-03-26] MEDS: Sodium Chloride 0.9% 1,000 ML IV SCH ×2 (04:38→16:54)
--- NOTE | 2021-03-26 06:38 | CR ---
LEFT TIB/FIB [id number] INDICATION: Infection, redness in wounds. Four views of the left tibia and fibula were obtained 03/25/2021 and compared with 02/15/2021. There appears to be soft tissue edema in the lower extremity, markedly increasing the diameter of the calf and ankle. No acute bone or joint abnormality was identified, however. If osteomyelitis is suspected clinically, three-phase nuclear bone imaging may be helpful for further evaluation. MTDD
[2021-03-26] MEDS ORDERED: Albuterol 8 GM Inhaler INH PRN (08:30)
[2021-03-26] MEDS ORDERED: Polyethylene Glycol 3350 Powder 17 GM Packet PO PRN (08:30)
--- NOTE | 2021-03-26 08:30 | PCM.PN ---
- General Info Date of Service: 03/26/21 Admission Dx/Problem (Free Text): Patient states he has some pain on his left leg. No fevers or chills. - Patient Data Vitals - Most Recent: Last Vital Signs Temp 98.7 F 03/26/21 00:00 Pulse 82 03/26/21 00:00 Resp 17 03/26/21 00:00 BP 112/54 L 03/26/21 00:00 Pulse Ox 98 03/26/21 00:00 Weight - Most Recent: 299 lb 4 oz I&O - Last 24 Hours: Intake & Output 03/25/21 03/26/21 03/26/21 22:59 06:59 14:59 Intake Total 400 Output Total 600 Balance 400 -600 Lab Results Last 24 Hours: Laboratory Results - last 24 hr 03/25/21 03/25/21 03/25/21 Range/Units 14:55 14:55 14:55 WBC 13.6 H (3.2-10.1) x10-3/uL RBC 5.63 (3.90-5.90) x10(6)uL Hgb 13.9 (12.9-17.7) g/dL Hct 44.6 (38.3-50.1) % MCV 79.1 L (80.8-98.7) fL MCH 24.7 L (27.0-33.3) pg MCHC 31.2 (28.7-35.3) g/dL RDW 15.9 H (12.4-15.0) % Plt Count 154 (117-477) x10(3)uL MPV 7.8 (6.7-11.0) fL Add Manual Diff Yes Neutrophils % (Manual) 81 (46-82) % Band Neutrophils % 3 (0-6) % Lymphocytes % (Manual) 11 L (13-37) % Monocytes % (Manual) 5 (4-12) % POC VBG pH (7.32-7.43) pH Units POC VBG pCO2 (41-51) mmHg POC VBG HCO3 (21-29) mmol/L VBG Base Excess (-2-3) mmol/L O2 Delivery Device Sodium 137 (135-145) mmol/L Potassium 4.0 (3.5-5.3) mmol/L Chloride 98 L (100-110) mmol/L Carbon Dioxide 34 H (21-32) mmol/L BUN 27 H D (7-18) mg/dL Creatinine 1.3 (0.70-1.30) mg/dL Est Cr Clr Drug Dosing 57.21 mL/min Estimated GFR (MDRD) 54 L (>60) BUN/Creatinine Ratio 20.8 H (9-20) Glucose 196 H (80-116) mg/dL POC Glucose (80-116) mg/dL Lactic Acid (0.4-2.0) mmol/L Calcium 8.6 (8.6-10.2) mg/dL Magnesium 1.9 (1.8-2.5) mg/dL Total Bilirubin 0.6 (0.1-1.3) mg/dL AST 25 D (5-25) IU/L ALT 40 H D (12-36) U/L Alkaline Phosphatase 95 (56-112) IU/L Troponin I 6.7 (4.0-60.3) pg/mL C-Reactive Protein 20.6 H* (0.5-0.9) mg/dL NT-Pro-B Natriuret Pep 157 H (<=125) pg/mL Total Protein 7.1 (6.0-8.0) g/dL Albumin 3.3 (3.2-4.6) g/dL Globulin 3.8 g/dL Albumin/Globulin Ratio 0.9 SARS-CoV-2 RNA (OPAL) (NEGATIVE) 03/25/21 03/25/21 03/25/21 Range/Units 14:55 14:55 16:42 WBC (3.2-10.1) x10-3/uL RBC (3.90-5.90) x10(6)uL Hgb (12.9-17.7) g/dL Hct (38.3-50.1) % MCV (80.8-98.7) fL MCH (27.0-33.3) pg MCHC (28.7-35.3) g/dL RDW (12.4-15.0) % Plt Count (117-477) x10(3)uL MPV (6.7-11.0) fL Add Manual Diff Neutrophils % (Manual) (46-82) % Band Neutrophils % (0-6) % Lymphocytes % (Manual) (13-37) % Monocytes % (Manual) (4-12) % POC VBG pH 7.50 H (7.32-7.43) pH Units POC VBG pCO2 40 L (41-51) mmHg POC VBG HCO3 32 H (21-29) mmol/L VBG Base Excess 9 H (-2-3) mmol/L O2 Delivery Device Room air Sodium (135-145) mmol/L Potassium (3.5-5.3) mmol/L Chloride (100-110) mmol/L Carbon Dioxide (21-32) mmol/L BUN (7-18) mg/dL Creatinine (0.70-1.30) mg/dL Est Cr Clr Drug Dosing mL/min Estimated GFR (MDRD) (>60) BUN/Creatinine Ratio (9-20) Glucose (80-116) mg/dL POC Glucose (80-116) mg/dL Lactic Acid 1.4 (0.4-2.0) mmol/L Calcium (8.6-10.2) mg/dL Magnesium (1.8-2.5) mg/dL Total Bilirubin (0.1-1.3) mg/dL AST (5-25) IU/L ALT (12-36) U/L Alkaline Phosphatase (56-112) IU/L Troponin I (4.0-60.3) pg/mL C-Reactive Protein (0.5-0.9) mg/dL NT-Pro-B Natriuret Pep (<=125) pg/mL Total Protein (6.0-8.0) g/dL Albumin (3.2-4.6) g/dL Globulin g/dL Albumin/Globulin Ratio SARS-CoV-2 RNA (OPAL) Negative (NEGATIVE) 03/25/21 03/26/21 Range/Units 19:10 07:10 WBC (3.2-10.1) x10-3/uL RBC (3.90-5.90) x10(6)uL Hgb (12.9-17.7) g/dL Hct (38.3-50.1) % MCV (80.8-98.7) fL MCH (27.0-33.3) pg MCHC (28.7-35.3) g/dL RDW (12.4-15.0) % Plt Count (117-477) x10(3)uL MPV (6.7-11.0) fL Add Manual Diff Neutrophils % (Manual) (46-82) % Band Neutrophils % (0-6) % Lymphocytes % (Manual) (13-37) % Monocytes % (Manual) (4-12) % POC VBG pH (7.32-7.43) pH Units POC VBG pCO2 (41-51) mmHg POC VBG HCO3 (21-29) mmol/L VBG Base Excess (-2-3) mmol/L O2 Delivery Device Sodium 140 (135-145) mmol/L Potassium 3.9 (3.5-5.3) mmol/L Chloride 103 D (100-110) mmol/L Carbon Dioxide 35 H (21-32) mmol/L BUN 19 H (7-18) mg/dL Creatinine 1.1 (0.70-1.30) mg/dL Est Cr Clr Drug Dosing 67.61 mL/min Estimated GFR (MDRD) > 60 (>60) BUN/Creatinine Ratio 17.3 (9-20) Glucose 164 H (80-116) mg/dL POC Glucose 206 H D (80-116) mg/dL Lactic Acid (0.4-2.0) mmol/L Calcium 7.9 L (8.6-10.2) mg/dL Magnesium (1.8-2.5) mg/dL Total Bilirubin (0.1-1.3) mg/dL AST (5-25) IU/L ALT (12-36) U/L Alkaline Phosphatase (56-112) IU/L Troponin I (4.0-60.3) pg/mL C-Reactive Protein (0.5-0.9) mg/dL NT-Pro-B Natriuret Pep (<=125) pg/mL Total Protein (6.0-8.0) g/dL Albumin (3.2-4.6) g/dL Globulin g/dL Albumin/Globulin Ratio SARS-CoV-2 RNA (OPAL) (NEGATIVE) Shai Results Last 24 Hours: Microbiology 03/25/21 15:05 Anaerobic Blood Culture - Final Blood - Venous - Lab Draw Med Orders - Current: Current Medications Hydrocodone Bitart/Acetaminophen (Acetaminophen/Hydrocodone 325-5 Mg Tab) 1 - 2 tab PO Q6H PRN PRN Reason: Pain Last Admin: 03/26/21 06:09 Dose: 2 tab Documented by: Dextrose/Water (50% Dextrose In Water 50 Ml Syringe) 50 ml IVPUSH ASDIRECTED PRN PRN Reason: Hypoglycemia Glucagon (Glucagon,Human Recombinant 1 Mg Vial) 1 mg IM ASDIRECTED PRN PRN Reason: Hypoglycemia Sodium Chloride (Normal Saline) 1,000 mls @ 100 mls/hr IV ASDIRECTED [facility] Last Admin: 03/26/21 04:38 Dose: 100 mls/hr Documented by: Ceftriaxone Sodium 1 gm/ (Sodium Chloride) 50 mls @ 200 mls/hr IV Q24H [facility] Last Admin: 03/25/21 20:52 Dose: 200 mls/hr Documented by: Vancomycin HCl 2 gm/ Premix 400 mls @ 200 mls/hr IV Q12H [facility] Last Admin: 03/25/21 22:08 Dose: 200 mls/hr Documented by: Insulin Human Lispro (Insulin Lispro 100 Unit/Ml 3 Ml Kwikpen) 0 unit SUBCUT TIDMEALS [facility]; Protocol Last Admin: 03/25/21 19:14 Dose: 4 units Documented by: Saccharomyces Boulardii (Saccharomyces Boulardii (Probiotic) 250 Mg Cap) 250 mg PO BID [facility] Last Admin: 03/25/21 22:03 Dose: 250 mg Documented by: Sodium Chloride (Sodium Chloride 0.9% 10 Ml Syringe) 10 ml FLUSH ASDIRECTED PRN PRN Reason: Keep Vein Open Vancomycin HCl (Pharmacy To Dose - Vancomycin) 1 dose .XX ASDIRECTED CARO Discontinued Medications Sodium Chloride (Normal Saline) 500 mls @ 999 mls/hr IV .BOLUS ONE Stop: 03/25/21 15:02 Last Admin: 03/25/21 15:05 Dose: 999 mls/hr Documented by: Ceftriaxone Sodium 1 gm/ (Sodium Chloride) 50 mls @ 200 mls/hr IV Q24H [facility] Last Admin: 03/25/21 19:47 Dose: Not Given Documented by: Vancomycin HCl 2 gm/ Premix 400 mls @ 200 mls/hr IV Q12H [facility] Last Admin: 03/25/21 19:47 Dose: Not Given Documented by: Oxycodone/Acetaminophen (Acetaminophen/Oxycodone 325-5 Mg Tab) 2 tab PO ONETIME STA Stop: 03/25/21 14:33 Last Admin: 03/25/21 15:04 Dose: 2 tab Documented by: - Exam General: Alert, Oriented, Cooperative Skin: Other (Erythema left lower leg that's marked. The ulcers on the medial side are dry today.) - Patient Data Lab Results Last 24 hrs: Laboratory Results - last 24 hr 03/25/21 03/25/21 03/25/21 Range/Units 14:55 14:55 14:55 WBC 13.6 H (3.2-10.1) x10-3/uL RBC 5.63 (3.90-5.90) x10(6)uL Hgb 13.9 (12.9-17.7) g/dL Hct 44.6 (38.3-50.1) % MCV 79.1 L (80.8-98.7) fL MCH 24.7 L (27.0-33.3) pg MCHC 31.2 (28.7-35.3) g/dL RDW 15.9 H (12.4-15.0) % Plt Count 154 (117-477) x10(3)uL MPV 7.8 (6.7-11.0) fL Add Manual Diff Yes Neutrophils % (Manual) 81 (46-82) % Band Neutrophils % 3 (0-6) % Lymphocytes % (Manual) 11 L (13-37) % Monocytes % (Manual) 5 (4-12) % POC VBG pH (7.32-7.43) pH Units POC VBG pCO2 (41-51) mmHg POC VBG HCO3 (21-29) mmol/L VBG Base Excess (-2-3) mmol/L O2 Delivery Device Sodium 137 (135-145) mmol/L Potassium 4.0 (3.5-5.3) mmol/L Chloride 98 L (100-110) mmol/L Carbon Dioxide 34 H (21-32) mmol/L BUN 27 H D (7-18) mg/dL Creatinine 1.3 (0.70-1.30) mg/dL Est Cr Clr Drug Dosing 57.21 mL/min Estimated GFR (MDRD) 54 L (>60) BUN/Creatinine Ratio 20.8 H (9-20) Glucose 196 H (80-116) mg/dL POC Glucose (80-116) mg/dL Lactic Acid (0.4-2.0) mmol/L Calcium 8.6 (8.6-10.2) mg/dL Magnesium 1.9 (1.8-2.5) mg/dL Total Bilirubin 0.6 (0.1-1.3) mg/dL AST 25 D (5-25) IU/L ALT 40 H D (12-36) U/L Alkaline Phosphatase 95 (56-112) IU/L Troponin I 6.7 (4.0-60.3) pg/mL C-Reactive Protein 20.6 H* (0.5-0.9) mg/dL NT-Pro-B Natriuret Pep 157 H (<=125) pg/mL Total Protein 7.1 (6.0-8.0) g/dL Albumin 3.3 (3.2-4.6) g/dL Globulin 3.8 g/dL Albumin/Globulin Ratio 0.9 SARS-CoV-2 RNA (OPAL) (NEGATIVE) 03/25/21 03/25/21 03/25/21 Range/Units 14:55 14:55 16:42 WBC (3.2-10.1) x10-3/uL RBC (3.90-5.90) x10(6)uL Hgb (12.9-17.7) g/dL Hct (38.3-50.1) % MCV (80.8-98.7) fL MCH (27.0-33.3) pg MCHC (28.7-35.3) g/dL RDW (12.4-15.0) % Plt Count (117-477) x10(3)uL MPV (6.7-11.0) fL Add Manual Diff Neutrophils % (Manual) (46-82) % Band Neutrophils % (0-6) % Lymphocytes % (Manual) (13-37) % Monocytes % (Manual) (4-12) % POC VBG pH 7.50 H (7.32-7.43) pH Units POC VBG pCO2 40 L (41-51) mmHg POC VBG HCO3 32 H (21-29) mmol/L VBG Base Excess 9 H (-2-3) mmol/L O2 Delivery Device Room air Sodium (135-145) mmol/L Potassium (3.5-5.3) mmol/L Chloride (100-110) mmol/L Carbon Dioxide (21-32) mmol/L BUN (7-18) mg/dL Creatinine (0.70-1.30) mg/dL Est Cr Clr Drug Dosing mL/min Estimated GFR (MDRD) (>60) BUN/Creatinine Ratio (9-20) Glucose (80-116) mg/dL POC Glucose (80-116) mg/dL Lactic Acid 1.4 (0.4-2.0) mmol/L Calcium (8.6-10.2) mg/dL Magnesium (1.8-2.5) mg/dL Total Bilirubin (0.1-1.3) mg/dL AST (5-25) IU/L ALT (12-36) U/L Alkaline Phosphatase (56-112) IU/L Troponin I (4.0-60.3) pg/mL C-Reactive Protein (0.5-0.9) mg/dL NT-Pro-B Natriuret Pep (<=125) pg/mL Total Protein (6.0-8.0) g/dL Albumin (3.2-4.6) g/dL Globulin g/dL Albumin/Globulin Ratio SARS-CoV-2 RNA (OPAL) Negative (NEGATIVE) 03/25/21 03/26/21 Range/Units 19:10 07:10 WBC (3.2-10.1) x10-3/uL RBC (3.90-5.90) x10(6)uL Hgb (12.9-17.7) g/dL Hct (38.3-50.1) % MCV (80.8-98.7) fL MCH (27.0-33.3) pg MCHC (28.7-35.3) g/dL RDW (12.4-15.0) % Plt Count (117-477) x10(3)uL MPV (6.7-11.0) fL Add Manual Diff Neutrophils % (Manual) (46-82) % Band Neutrophils % (0-6) % Lymphocytes % (Manual) (13-37) % Monocytes % (Manual) (4-12) % POC VBG pH (7.32-7.43) pH Units POC VBG pCO2 (41-51) mmHg POC VBG HCO3 (21-29) mmol/L VBG Base Excess (-2-3) mmol/L O2 Delivery Device Sodium 140 (135-145) mmol/L Potassium 3.9 (3.5-5.3) mmol/L Chloride 103 D (100-110) mmol/L Carbon Dioxide 35 H (21-32) mmol/L BUN 19 H (7-18) mg/dL Creatinine 1.1 (0.70-1.30) mg/dL Est Cr Clr Drug Dosing 67.61 mL/min Estimated GFR (MDRD) > 60 (>60) BUN/Creatinine Ratio 17.3 (9-20) Glucose 164 H (80-116) mg/dL POC Glucose 206 H D (80-116) mg/dL Lactic Acid (0.4-2.0) mmol/L Calcium 7.9 L (8.6-10.2) mg/dL Magnesium (1.8-2.5) mg/dL Total Bilirubin (0.1-1.3) mg/dL AST (5-25) IU/L ALT (12-36) U/L Alkaline Phosphatase (56-112) IU/L Troponin I (4.0-60.3) pg/mL C-Reactive Protein (0.5-0.9) mg/dL NT-Pro-B Natriuret Pep (<=125) pg/mL Total Protein (6.0-8.0) g/dL Albumin (3.2-4.6) g/dL Globulin g/dL Albumin/Globulin Ratio SARS-CoV-2 RNA (OPAL) (NEGATIVE) Result Diagrams: 03/25/21 14:55 03/26/21 07:10 Shai Results Last 24 hrs: Microbiology 03/25/21 15:05 Anaerobic Blood Culture - Final Blood - Venous - Lab Draw Sepsis Event Note - Evaluation Sepsis Screening Result: No Definite Risk - Focused Exam Vital Signs: Vital Signs Temp Pulse Resp BP Pulse Ox 03/26/21 00:00 98.7 F 82 17 112/54 L 98 - Problem List & Annotations (1) Palliative care status SNOMED Code(s): 389853322 Code(s): Z51.5 - ENCOUNTER FOR PALLIATIVE CARE Status: Acute Current V isit: Yes (2) Cellulitis of left lower leg SNOMED Code(s): 148168776 Code(s): L03.116 - CELLULITIS OF LEFT LOWER LIMB Status: Acute Current Visit: Yes (3) Diabetes mellitus type 2, uncontrolled SNOMED Code(s): 295103818, 869877069 Code(s): E11.65 - TYPE 2 DIABETES MELLITUS WITH HYPERGLYCEMIA Status: Acute Current Visit: Yes Qualifiers: Glycemic state: with hyperglycemia Qualified Code(s): E11.65 - Type 2 diabetes mellitus with hyperglycemia (4) History of MRSA infection SNOMED Code(s): 542057736, 838023850 Code(s): Z86.14 - PERSONAL HISTORY OF METHICILLIN RESIS STAPH INFECTION Status: Acute Current Visit: No (5) Pain in left lower leg SNOMED Code(s): 458686663501574 Code(s): M79.662 - PAIN IN LEFT LOWER LEG Status: Acute Current Visit: No (6) Venous stasis dermatitis of both lower extremities SNOMED Code(s): 18630698 Code(s): I87.2 - VENOUS INSUFFICIENCY (CHRONIC) (PERIPHERAL) Status: Acute Current Visit: No (7) Venous stasis ulcer of ankle SNOMED Code(s): 708913321 Code(s): I83.003 - VARICOSE VEINS OF UNSP LOWER EXTREMITY WITH ULCER OF ANKLE; L97.309 - NON-PRESSURE CHRONIC ULCER OF UNSP ANKLE WITH UNSP SEVERITY Status: Acute Current Visit: No - Problem List Review Problem List Initiated/Reviewed/Updated: Yes - My Orders Last 24 Hours: My Active Orders 03/25/21 17:47 Accu Check [Blood Glucose Check, Bedside] [RC] BIDMEALS 03/25/21 19:00 CULTURE ANAEROBIC [RM] Routine - Plan Plan:: 1. Continue to new current care. 2. CBC and C-reactive protein in the a.m.
[2021-03-26] MEDS ORDERED: Naproxen 500 MG Tab PO PRN (09:00)
[2021-03-26] MEDS ORDERED: [UNRECOGNIZED DRUG - MIXTURE] TOP SCH (09:00)
[2021-03-26] MEDS ORDERED: Non-Formulary Medication 1 Each (Alogliptin Benzoate [Alogliptin] 25 MG Tablet) PO SCH (09:00)
[2021-03-26] MEDS: Insulin Lispro 100 Unit/ML 3 ML KwikPen SUBCUT SCH ×3 (09:17→18:00)
[2021-03-26] MEDS: VANCOmycin 2 GM/400 ML 2 GM in Premix Bag 1 BAG IV SCH ×2 (09:22→20:53)
[2021-03-26] MEDS ORDERED: Formoterol/Mometasone 200-5 MCG 8.8 GM Inhaler IH SCH (10:00)
[2021-03-26] MEDS ORDERED: Acetaminophen/HYDROcodone 325-5 MG Tab PO PRN ×2 (10:19)
[2021-03-26] MEDS: Cholecalciferol (Vitamin D3) 25 MCG Tab PO SCH (11:20)
[2021-03-26] MEDS: Finasteride 5 MG Tab PO SCH (11:20)
[2021-03-26] MEDS: Formoterol/Mometasone 200-5 MCG 8.8 GM Inhaler IH SCH ×2 (11:21→20:33)
[2021-03-26] MEDS: Tamsulosin 0.4 MG Cap.ER PO SCH (11:22)
[2021-03-26] MEDS: Pantoprazole 40 MG Tab.CR PO SCH ×2 (11:25→20:36)
[2021-03-26] MEDS: Multivitamins with Iron/Calcium/Folic Acid/Minerals Tab PO SCH (11:25)
[2021-03-26] MEDS: Calcium Carbonate 500 MG Tablet PO SCH ×2 (11:25→20:35)
[2021-03-26] MEDS: Lutein/Minerals/Vitamin C/Vitamin E Acetate Cap PO SCH ×2 (11:25→20:35)
[2021-03-26] MEDS: Vitamin B Complex with Vitamin C Tab PO SCH ×2 (11:26→20:37)
[2021-03-26] MEDS: Furosemide 80 MG Tab PO SCH (11:26)
[2021-03-26] MEDS: Gabapentin 300 MG Cap PO SCH ×3 (11:35→20:40)
[2021-03-26] MEDS: Saccharomyces Boulardii (Probiotic) 250 MG Cap PO SCH ×2 (14:09→20:34)
[2021-03-26] MEDS: hydrOXYzine HCl 25 MG Tab PO PRN ×2 (14:10→21:55)
[2021-03-26] MEDS: Furosemide 40 MG Tab PO SCH (15:13)
[2021-03-26] MEDS: Acetaminophen/HYDROcodone 325-10 MG Tab PO PRN (16:07)
[2021-03-26] MEDS: Sodium Chloride 0.9% 10 ML Syringe FLUSH PRN (18:12)
[2021-03-26] MEDS: cefTRIAXone 1 GM Vial IVPUSH SCH (20:28)
[2021-03-26] MEDS: Naproxen 500 MG Tab PO SCH (20:35)
[2021-03-26] MEDS: Rivaroxaban 10 MG Tab PO SCH (20:37)
[2021-03-26] MEDS: Insulin Glargine,Human Rec. Analog 100 Units/ML 3 ML Pen SUBCUT SCH ×3 (20:53→21:53)
[2021-03-26] MEDS ORDERED: Insulin Glargine,Human Rec. Analog 100 Units/ML 3 ML Pen SUBCUT ONE (21:23)
[2021-03-27] MEDS: Acetaminophen/HYDROcodone 325-10 MG Tab PO PRN ×2 (00:39→06:04)
--- NOTE | 2021-03-27 08:18 | PCM.PN ---
- General Info Date of Service: 03/27/21 Admission Dx/Problem (Free Text): Patient states his pain is a little bit better today and his left leg. Denies fevers, chills. The medial leg is still weeping. - Patient Data Vitals - Most Recent: Last Vital Signs Temp 98.7 F 03/27/21 04:00 Pulse 93 03/27/21 04:00 Resp 18 03/27/21 04:00 BP 123/71 03/27/21 04:00 Pulse Ox 95 03/27/21 04:00 Weight - Most Recent: 299 lb 4 oz I&O - Last 24 Hours: Intake & Output 03/26/21 03/27/21 03/27/21 22:59 06:59 14:59 Intake Total 673 400 Output Total 800 Balance 673 -400 Lab Results Last 24 Hours: Laboratory Results - last 24 hr 03/26/21 03/26/21 03/26/21 Range/Units 17:49 21:55 21:55 WBC 8.7 (3.2-10.1) x10-3/uL RBC 5.09 (3.90-5.90) x10(6)uL Hgb 12.8 L (12.9-17.7) g/dL Hct 40.7 (38.3-50.1) % MCV 79.9 L (80.8-98.7) fL MCH 25.1 L (27.0-33.3) pg MCHC 31.4 (28.7-35.3) g/dL RDW 16.1 H (12.4-15.0) % Plt Count 158 (117-477) x10(3)uL MPV 7.9 (6.7-11.0) fL Neut % (Auto) 76.1 H (40.3-71.8) % Lymph % (Auto) 11.2 L (15.8-45.3) % [place] % (Auto) 10.4 (5.5-15.2) % Eos % (Auto) 1.9 (0.1-6.8) % Baso % (Auto) 0.4 (0.3-3.8) % Neut # (Auto) 6.6 (1.7-6.9) x10-3/uL Lymph # (Auto) 1.0 (0.5-4.5) x10-3/uL [place] # (Auto) 0.9 (0.0-1.2) x10-3/uL Eos # (Auto) 0.2 (0.0-0.6) x10-3/uL Baso # (Auto) 0.0 (0.0-0.3) x10-3/uL Sodium (135-145) mmol/L Potassium (3.5-5.3) mmol/L Chloride (100-110) mmol/L Carbon Dioxide (21-32) mmol/L BUN (7-18) mg/dL Creatinine (0.70-1.30) mg/dL Est Cr Clr Drug Dosing mL/min Estimated GFR (MDRD) (>60) BUN/Creatinine Ratio (9-20) Glucose (80-116) mg/dL POC Glucose 209 H (80-116) mg/dL Calcium (8.6-10.2) mg/dL C-Reactive Protein 64.5 H* (0.5-0.9) mg/dL 03/26/21 03/27/21 Range/Units 21:55 06:01 WBC (3.2-10.1) x10-3/uL RBC (3.90-5.90) x10(6)uL Hgb (12.9-17.7) g/dL Hct (38.3-50.1) % MCV (80.8-98.7) fL MCH (27.0-33.3) pg MCHC (28.7-35.3) g/dL RDW (12.4-15.0) % Plt Count (117-477) x10(3)uL MPV (6.7-11.0) fL Neut % (Auto) (40.3-71.8) % Lymph % (Auto) (15.8-45.3) % [place] % (Auto) (5.5-15.2) % Eos % (Auto) (0.1-6.8) % Baso % (Auto) (0.3-3.8) % Neut # (Auto) (1.7-6.9) x10-3/uL Lymph # (Auto) (0.5-4.5) x10-3/uL [place] # (Auto) (0.0-1.2) x10-3/uL Eos # (Auto) (0.0-0.6) x10-3/uL Baso # (Auto) (0.0-0.3) x10-3/uL Sodium 140 (135-145) mmol/L Potassium 4.0 (3.5-5.3) mmol/L Chloride 103 (100-110) mmol/L Carbon Dioxide 33 H (21-32) mmol/L BUN 17 (7-18) mg/dL Creatinine 1.3 (0.70-1.30) mg/dL Est Cr Clr Drug Dosing 57.21 mL/min Estimated GFR (MDRD) 54 L (>60) BUN/Creatinine Ratio 13.1 (9-20) Glucose 196 H (80-116) mg/dL POC Glucose 167 H (80-116) mg/dL Calcium 7.8 L (8.6-10.2) mg/dL C-Reactive Protein (0.5-0.9) mg/dL Shai Results Last 24 Hours: Microbiology 03/25/21 15:05 Aerobic Blood Culture - Preliminary Blood - Venous - Lab Draw NO GROWTH AFTER 1 DAY Anaerobic Blood Culture - Final 03/25/21 14:55 Aerobic Blood Culture - Preliminary Blood - Venous NO GROWTH AFTER 1 DAY Anaerobic Blood Culture - Preliminary NO GROWTH AFTER 1 DAY Med Orders - Current: Current Medications Hydrocodone Bitart/Acetaminophen (Acetaminophen/Hydrocodone 325-10 Mg Tab) 1 tab PO Q4H PRN PRN Reason: Pain Last Admin: 03/27/21 06:04 Dose: 1 tab Documented by: Albuterol (Albuterol 8 Gm Inhaler) 0 gm INH Q4H PRN PRN Reason: Shortness of Breath Artificial Tears (Polyvinyl Alcohol 1.4% Ophth Soln 15 Ml Bottle) 0 ml EYEBOTH QID PRN PRN Reason: Dry Eyes Calcium Carbonate/Glycine (Calcium Carbonate 500 Mg Tablet) 500 mg PO BID [facility] Last Admin: 03/26/21 20:35 Dose: 500 mg Documented by: Ceftriaxone Sodium (Ceftriaxone 1 Gm Vial) 1 gm IVPUSH Q24H [facility] Last Admin: 03/26/21 20:28 Dose: 1 gm Documented by: Cholecalciferol (Cholecalciferol (Vitamin D3) 25 Mcg Tab) 50 mcg PO DAILY [facility] Last Admin: 03/26/21 11:20 Dose: 50 mcg Documented by: Dextrose/Water (50% Dextrose In Water 50 Ml Syringe) 50 ml IVPUSH ASDIRECTED PRN PRN Reason: Hypoglycemia Finasteride (Finasteride 5 Mg Tab) 5 mg PO DAILY [facility] Last Admin: 03/26/21 11:20 Dose: 5 mg Documented by: Furosemide (Furosemide 40 Mg Tab) 40 mg PO DAILY@1200 [facility] Last Admin: 03/26/21 15:13 Dose: 40 mg Documented by: Furosemide (Furosemide 80 Mg Tab) 80 mg PO DAILY@0800 [facility] Last Admin: 03/26/21 11:26 Dose: 80 mg Documented by: Gabapentin (Gabapentin 300 Mg Cap) 300 mg PO TID [facility] Last Admin: 03/26/21 20:40 Dose: 300 mg Documented by: Glucagon (Glucagon,Human Recombinant 1 Mg Vial) 1 mg IM ASDIRECTED PRN PRN Reason: Hypoglycemia Hydroxyzine HCl (Hydroxyzine Hcl 25 Mg Tab) 25 mg PO TID PRN PRN Reason: Itching Last Admin: 03/26/21 21:55 Dose: 25 mg Documented by: Vancomycin HCl 2 gm/ Premix 400 mls @ 200 mls/hr IV Q12H [facility] Last Admin: 03/26/21 20:53 Dose: 200 mls/hr Documented by: Insulin Glargine (Insulin Glargine,Human Rec. Analog 100 Units/Ml 3 Ml Pen) 8 units SUBCUT BEDTIME [facility] Last Admin: 03/26/21 21:53 Dose: 8 units Documented by: Insulin Human Lispro (Insulin Lispro 100 Unit/Ml 3 Ml Kwikpen) 0 unit SUBCUT BIDMEALS [facility]; Protocol Last Admin: 03/26/21 18:00 Dose: 4 units Documented by: Mometasone Furoate/Formoterol Fumar (Formoterol/Mometasone 200-5 Mcg 8.8 Gm Inhaler) 2 puff IH BID [facility] Last Admin: 03/26/21 20:33 Dose: 2 inhalation Documented by: Multivitamins (Vitamin B Complex With Vitamin C Tab) 1 each PO BID [facility] Last Admin: 03/26/21 20:37 Dose: 1 each Documented by: Multivitamins/Minerals (Multivitamins With Iron/Calcium/Folic Acid/Minerals Tab) 1 tab PO DAILY [facility] Last Admin: 03/26/21 11:25 Dose: 1 tab Documented by: Naproxen (Naproxen 500 Mg Tab) 500 mg PO BID [facility] Last Admin: 03/26/21 20:35 Dose: 500 mg Documented by: Pantoprazole Sodium (Pantoprazole 40 Mg Tab.Cr) 40 mg PO BID [facility] Last Admin: 03/26/21 20:36 Dose: 40 mg Documented by: Polyethylene Glycol (Polyethylene Glycol 3350 Powder 17 Gm Packet) 17 gm PO DAILY PRN PRN Reason: Constipation Rivaroxaban (Rivaroxaban 10 Mg Tab) 10 mg PO BEDTIME [facility] Last Admin: 03/26/21 20:37 Dose: 10 mg Documented by: Saccharomyces Boulardii (Saccharomyces Boulardii (Probiotic) 250 Mg Cap) 250 mg PO BID [facility] Last Admin: 03/26/21 20:34 Dose: 250 mg Documented by: Senna/Docusate Sodium (Docusate Sodium/Sennosides 50-8.6 Mg Tab) 2 tab PO BID PRN PRN Reason: CONSTIPATION Silver Sulfadiazine (Silver Sulfadiazine 1% Crm 50 Gm Tube) 0 gm TOP BID [facility] Sodium Chloride (Sodium Chloride 0.9% 10 Ml Syringe) 10 ml FLUSH ASDIRECTED PRN PRN Reason: Keep Vein Open Last Admin: 03/26/21 18:12 Dose: 10 ml Documented by: Tamsulosin HCl (Tamsulosin 0.4 Mg Cap.Er) 0.4 mg PO DAILY [facility] Last Admin: 03/26/21 11:22 Dose: 0.4 mg Documented by: Vancomycin HCl (Pharmacy To Dose - Vancomycin) 1 dose .XX ASDIRECTED [facility] Vit C/Vit E/Zinc/Copper/Lutein (Lutein/Minerals/Vitamin C/Vitamin E Acetate Cap) 1 each PO BID [facility] Last Admin: 03/26/21 20:35 Dose: 1 each Documented by: Discontinued Medications Hydrocodone Bitart/Acetaminophen (Acetaminophen/Hydrocodone 325-5 Mg Tab) 1 - 2 tab PO Q6H PRN PRN Reason: Pain Last Admin: 03/26/21 06:09 Dose: 2 tab Documented by: Hydrocodone Bitart/Acetaminophen (Acetaminophen/Hydrocodone 325-5 Mg Tab) 1 tab PO Q6H PRN PRN Reason: PAIN 4-6/10 Hydrocodone Bitart/Acetaminophen (Acetaminophen/Hydrocodone 325-5 Mg Tab) 2 tab PO Q6H PRN PRN Reason: PAIN 7-10/10 Last Admin: 03/26/21 12:18 Dose: 2 tab Documented by: Sodium Chloride (Normal Saline) 500 mls @ 999 mls/hr IV .BOLUS ONE Stop: 03/25/21 15:02 Last Admin: 03/25/21 15:05 Dose: 999 mls/hr Documented by: Sodium Chloride (Normal Saline) 1,000 mls @ 100 mls/hr IV ASDIRECTED [facility] Last Admin: 03/26/21 16:54 Dose: 100 mls/hr Documented by: Ceftriaxone Sodium 1 gm/ (Sodium Chloride) 50 mls @ 200 mls/hr IV Q24H [facility] Last Admin: 03/25/21 19:47 Dose: Not Given Documented by: Vancomycin HCl 2 gm/ Premix 400 mls @ 200 mls/hr IV Q12H [facility] Last Admin: 03/25/21 19:47 Dose: Not Given Documented by: Ceftriaxone Sodium 1 gm/ (Sodium Chloride) 50 mls @ 200 mls/hr IV Q24H [facility] Last Admin: 03/25/21 20:52 Dose: 200 mls/hr Documented by: Insulin Human Lispro (Insulin Lispro 100 Unit/Ml 3 Ml Kwikpen) 0 unit SUBCUT TIDMEALS [facility]; Protocol Last Admin: 03/26/21 13:43 Dose: Not Given Documented by: Mometasone Furoate/Formoterol Fumar (Formoterol/Mometasone 200-5 Mcg 8.8 Gm Inhaler) 2 puff IH BID [facility] Naproxen (Naproxen 500 Mg Tab) 500 mg PO DAILY PRN PRN Reason: PAIN Oxycodone/Acetaminophen (Acetaminophen/Oxycodone 325-5 Mg Tab) 2 tab PO ONETIME STA Stop: 03/25/21 14:33 Last Admin: 03/25/21 15:04 Dose: 2 tab Documented by: - Exam General: Alert, Oriented, Cooperative Lungs: Normal Respiratory Effort Skin: Other (Erythema left leg. Little higher than the marker on the lateral side but the rest of it looks normal. Still pain on palpation but improved. The medial aspects still has ulcers that are open with little weeping.) - Patient Data Lab Results Last 24 hrs: Laboratory Results - last 24 hr 06/08/21 06/08/21 06/08/21 Range/Units 17:49 21:55 21:55 WBC 8.7 (3.2-10.1) x10-3/uL RBC 5.09 (3.90-5.90) x10(6)uL Hgb 12.8 L (12.9-17.7) g/dL Hct 40.7 (38.3-50.1) % MCV 79.9 L (80.8-98.7) fL MCH 25.1 L (27.0-33.3) pg MCHC 31.4 (28.7-35.3) g/dL RDW 16.1 H (12.4-15.0) % Plt Count 158 (117-477) x10(3)uL MPV 7.9 (6.7-11.0) fL Neut % (Auto) 76.1 H (40.3-71.8) % Lymph % (Auto) 11.2 L (15.8-45.3) % [place] % (Auto) 10.4 (5.5-15.2) % Eos % (Auto) 1.9 (0.1-6.8) % Baso % (Auto) 0.4 (0.3-3.8) % Neut # (Auto) 6.6 (1.7-6.9) x10-3/uL Lymph # (Auto) 1.0 (0.5-4.5) x10-3/uL [place] # (Auto) 0.9 (0.0-1.2) x10-3/uL Eos # (Auto) 0.2 (0.0-0.6) x10-3/uL Baso # (Auto) 0.0 (0.0-0.3) x10-3/uL Sodium (135-145) mmol/L Potassium (3.5-5.3) mmol/L Chloride (100-110) mmol/L Carbon Dioxide (21-32) mmol/L BUN (7-18) mg/dL Creatinine (0.70-1.30) mg/dL Est Cr Clr Drug Dosing mL/min Estimated GFR (MDRD) (>60) BUN/Creatinine Ratio (9-20) Glucose (80-116) mg/dL POC Glucose 209 H (80-116) mg/dL Calcium (8.6-10.2) mg/dL C-Reactive Protein 64.5 H* (0.5-0.9) mg/dL 03/26/21 03/27/21 Range/Units 21:55 06:01 WBC (3.2-10.1) x10-3/uL RBC (3.90-5.90) x10(6)uL Hgb (12.9-17.7) g/dL Hct (38.3-50.1) % MCV (80.8-98.7) fL MCH (27.0-33.3) pg MCHC (28.7-35.3) g/dL RDW (12.4-15.0) % Plt Count (117-477) x10(3)uL MPV (6.7-11.0) fL Neut % (Auto) (40.3-71.8) % Lymph % (Auto) (15.8-45.3) % [place] % (Auto) (5.5-15.2) % Eos % (Auto) (0.1-6.8) % Baso % (Auto) (0.3-3.8) % Neut # (Auto) (1.7-6.9) x10-3/uL Lymph # (Auto) (0.5-4.5) x10-3/uL [place] # (Auto) (0.0-1.2) x10-3/uL Eos # (Auto) (0.0-0.6) x10-3/uL Baso # (Auto) (0.0-0.3) x10-3/uL Sodium 140 (135-145) mmol/L Potassium 4.0 (3.5-5.3) mmol/L Chloride 103 (100-110) mmol/L Carbon Dioxide 33 H (21-32) mmol/L BUN 17 (7-18) mg/dL Creatinine 1.3 (0.70-1.30) mg/dL Est Cr Clr Drug Dosing 57.21 mL/min Estimated GFR (MDRD) 54 L (>60) BUN/Creatinine Ratio 13.1 (9-20) Glucose 196 H (80-116) mg/dL POC Glucose 167 H (80-116) mg/dL Calcium 7.8 L (8.6-10.2) mg/dL C-Reactive Protein (0.5-0.9) mg/dL Result Diagrams: 03/26/21 21:55 03/26/21 21:55 Shai Results Last 24 hrs: Microbiology 03/25/21 15:05 Aerobic Blood Culture - Preliminary Blood - Venous - Lab Draw NO GROWTH AFTER 1 DAY Anaerobic Blood Culture - Final 03/25/21 14:55 Aerobic Blood Culture - Preliminary Blood - Venous NO GROWTH AFTER 1 DAY Anaerobic Blood Culture - Preliminary NO GROWTH AFTER 1 DAY Sepsis Event Note - Evaluation Sepsis Screening Result: No Definite Risk - Focused Exam Vital Signs: Vital Signs Temp Pulse Resp BP Pulse Ox 03/27/21 04:00 98.7 F 93 18 123/71 95 - Problem List & Annotations (1) Palliative care status SNOMED Code(s): 620577212 Code(s): Z51.5 - ENCOUNTER FOR PALLIATIVE CARE Status: Acute Current Visit: Yes (2) Cellulitis of left lower leg SNOMED Code(s): 729743085 Code(s): L03.116 - CELLULITIS OF LEFT LOWER LIMB Status: Acute Current Visit: Yes (3) Diabetes mellitus type 2, uncontrolled SNOMED Code(s): 675124510, 022625792 Code(s): E11.65 - TYPE 2 DIABETES MELLITUS WITH HYPERGLYCEMIA Status: Acute Current Visit: Yes Qualifiers: Glycemic state: with hyperglycemia Qualified Code(s): E11.65 - Type 2 diabetes mellitus with hyperglycemia (4) History of MRSA infection SNOMED Code(s): 072642170, 872413752 Code(s): Z86.14 - PERSONAL HISTORY OF METHICILLIN RESIS STAPH INFECTION Status: Acute Current Visit: No (5) Pain in left lower leg SNOMED Code(s): 312170166867121 Code(s): M79.662 - PAIN IN LEFT LOWER LEG Status: Acute Current Visit: No (6) Venous stasis dermatitis of both lower extremities SNOMED Code(s): 88324793 Code(s): I87.2 - VENOUS INSUFFICIENCY (CHRONIC) (PERIPHERAL) Status: Acute Current Visit: No (7) Venous stasis ulcer of ankle SNOMED Code(s): 091313666 Code(s): I83.003 - VARICOSE VEINS OF UNSP LOWER EXTREMITY WITH ULCER OF ANKLE; L97.309 - NON-PRESSURE CHRONIC ULCER OF UNSP ANKLE WITH UNSP SEVERITY Status: Acute Current Visit: No - Problem List Review Problem List Initiated/Reviewed/Updated: Yes - My Orders Last 24 Hours: My Active Orders 03/26/21 08:30 Albuterol [Ventolin HFA] 0 gm INH Q4H PRN hydrOXYzine HCL [Atarax] 25 mg PO TID PRN polyethylene glycoL 3350 [MiraLAX] 17 gm PO DAILY PRN 03/26/21 08:31 RT Post Treatment Assessment [RC] ASDIRECTED 03/26/21 09:00 Cholecalciferol (Vitamin D3) [Vitamin D3] 50 mcg PO DAILY Docusate Sodium/Sennosides [Senna Plus] 2 tab PO BID PRN Finasteride [Proscar] 5 mg PO DAILY Gabapentin [Neurontin] 300 mg PO TID 03/26/21 09:10 Polyvinyl Alcohol [LiquiTears 1.4% Ophth Soln] 0 ml EYEBOTH QID PRN 03/26/21 10:00 Calcium Carbonate [Oyster Shell Calcium] 500 mg PO BID Furosemide [Lasix] 80 mg PO DAILY@0800 Lutein/Min/Vit C/Vit E Acetate [Ocuvite Lutein] 1 each PO BID Mometasone/Formoterol [Dulera 200-5 MCG] 2 puff IH BID Multivitamins w-Iron/Ca/FA/Min [Thera M Plus] 1 tab PO DAILY Pantoprazole [ProTONIX] 40 mg PO BID Tamsulosin [Flomax] 0.4 mg PO DAILY Vitamin B Complex with C [Total B With C] 1 each PO BID 03/26/21 13:37 Acetaminophen/HYDROcodone [[place] 325-10 MG] 1 tab PO Q4H PRN 03/26/21 14:00 Furosemide [Lasix] 40 mg PO DAILY@1200 03/26/21 17:03 Convert IV to Saline Lock [OM.PC] Routine 03/26/21 18:00 Insulin Lispro [HumaLOG] See Protocol SUBCUT BIDMEALS 03/26/21 21:00 Insulin Glarg,Human.Rec.Analog [LantUS Solostar] 8 units SUBCUT BEDTIME Naproxen [Naprosyn] 500 mg PO BID Rivaroxaban [Xarelto] 10 mg PO BEDTIME 03/27/21 09:00 Silver Sulfadiazine [Silvadene 1% Cream 50 GM] 0 gm TOP BID - Plan Plan:: 1. White count is back to normal. C-reactive proteins a little higher. 2. Wrap the ulcers in the medial ankle twice a day with Silvadene cream. 3. Awaiting wound culture which is pending. 4. He can be up and shower. 5. Continue pain control with hydrocodone. 6. Continue the same antibiotic regimen. 7. Patient's concerned that'll go home too soon because he wasn't totally healed last time. Listened to these concerns and will pass them on to the next provider.
[2021-03-27] MEDS: Silver Sulfadiazine 1% Crm 50 GM Tube TOP SCH ×2 (09:00→20:29)
[2021-03-27] MEDS: Insulin Lispro 100 Unit/ML 3 ML KwikPen SUBCUT SCH ×2 (09:11→17:45)
[2021-03-27] MEDS: Finasteride 5 MG Tab PO SCH (09:12)
[2021-03-27] MEDS: Vitamin B Complex with Vitamin C Tab PO SCH ×2 (09:12→20:29)
[2021-03-27] MEDS: Calcium Carbonate 500 MG Tablet PO SCH ×2 (09:13→20:28)
[2021-03-27] MEDS: Pantoprazole 40 MG Tab.CR PO SCH ×2 (09:13→20:29)
[2021-03-27] MEDS: Furosemide 80 MG Tab PO SCH (09:13)
[2021-03-27] MEDS: Multivitamins with Iron/Calcium/Folic Acid/Minerals Tab PO SCH (09:13)
[2021-03-27] MEDS: Tamsulosin 0.4 MG Cap.ER PO SCH (09:13)
[2021-03-27] MEDS: Lutein/Minerals/Vitamin C/Vitamin E Acetate Cap PO SCH ×2 (09:14→20:28)
[2021-03-27] MEDS: Saccharomyces Boulardii (Probiotic) 250 MG Cap PO SCH ×2 (09:14→20:27)
[2021-03-27] MEDS: Naproxen 500 MG Tab PO SCH ×2 (09:14→20:27)
[2021-03-27] MEDS: Cholecalciferol (Vitamin D3) 25 MCG Tab PO SCH (09:14)
[2021-03-27] MEDS: Formoterol/Mometasone 200-5 MCG 8.8 GM Inhaler IH SCH ×2 (09:14→20:35)
[2021-03-27] MEDS: Gabapentin 300 MG Cap PO SCH ×3 (09:24→20:34)
[2021-03-27] MEDS: Sodium Chloride 0.9% 10 ML Syringe FLUSH PRN ×2 (09:30→20:39)
[2021-03-27] MEDS: VANCOmycin 2 GM/400 ML 2 GM in Premix Bag 1 BAG IV SCH (09:35)
[2021-03-27] MEDS: Furosemide 40 MG Tab PO SCH (14:33)
[2021-03-27] MEDS: Polyvinyl Alcohol 1.4% Ophth Soln 15 ML Bottle EYEBOTH PRN (15:45)
[2021-03-27] MEDS: hydrOXYzine HCl 25 MG Tab PO PRN (15:45)
[2021-03-27] MEDS: cefTRIAXone 1 GM Vial IVPUSH SCH (20:26)
[2021-03-27] MEDS: LEVEMIR 100 UNIT/ML SUBCUT SCH (20:28)
[2021-03-27] MEDS: Rivaroxaban 10 MG Tab PO SCH (20:29)
[2021-03-27] MEDS: VANCOmycin 1.5 GM/300 ML 300 ML IV SCH (23:52)
[2021-03-28] MEDS: Insulin Lispro 100 Unit/ML 3 ML KwikPen SUBCUT SCH ×2 (07:31→17:41)
[2021-03-28] MEDS: Furosemide 80 MG Tab PO SCH (07:35)
--- NOTE | 2021-03-28 08:10 | PCM.PN ---
- General Info Date of Service: 03/28/21 Admission Dx/Problem (Free Text): Patient states he had some sweating last night but no fevers or chills. He felt actually cold. His leg pain in the left leg is improving. He only used 1 pain pill yesterday. - Patient Data Vitals - Most Recent: Last Vital Signs Temp 98.7 F 03/28/21 00:00 Pulse 82 03/28/21 00:00 Resp 18 03/28/21 00:00 BP 122/70 03/28/21 00:00 Pulse Ox 91 L 03/28/21 00:00 Weight - Most Recent: 299 lb 4 oz I&O - Last 24 Hours: Intake & Output 03/27/21 03/28/21 03/28/21 22:59 06:59 14:59 Intake Total 300 Balance 300 Lab Results Last 24 Hours: Laboratory Results - last 24 hr 03/27/21 03/27/21 03/28/21 Range/Units 08:35 17:25 06:56 POC Glucose 190 H 149 H (80-116) mg/dL Vancomycin Trough 19.7 H (<0.8) ug/mL Shai Results Last 24 Hours: Microbiology 03/25/21 14:55 Aerobic Blood Culture - Preliminary Blood - Venous NO GROWTH AFTER 2 DAYS Anaerobic Blood Culture - Preliminary NO GROWTH AFTER 2 DAYS 03/25/21 15:05 Aerobic Blood Culture - Preliminary Blood - Venous - Lab Draw NO GROWTH AFTER 2 DAYS Anaerobic Blood Culture - Final Med Orders - Current: Current Medications Hydrocodone Bitart/Acetaminophen (Acetaminophen/Hydrocodone 325-10 Mg Tab) 1 tab PO Q4H PRN PRN Reason: Pain Last Admin: 03/27/21 06:04 Dose: 1 tab Documented by: Albuterol (Albuterol 8 Gm Inhaler) 0 gm INH Q4H PRN PRN Reason: Shortness of Breath Artificial Tears (Polyvinyl Alcohol 1.4% Ophth Soln 15 Ml Bottle) 0 ml EYEBOTH QID PRN PRN Reason: Dry Eyes Last Admin: 03/27/21 15:45 Dose: 1 drop Documented by: Calcium Carbonate/Glycine (Calcium Carbonate 500 Mg Tablet) 500 mg PO BID [facility] Last Admin: 03/27/21 20:28 Dose: 500 mg Documented by: Ceftriaxone Sodium (Ceftriaxone 1 Gm Vial) 1 gm IVPUSH Q24H [facility]O Last Admin: 03/27/21 20:26 Dose: 1 gm Documented by: Cholecalciferol (Cholecalciferol (Vitamin D3) 25 Mcg Tab) 50 mcg PO DAILY [facility] Last Admin: 03/27/21 09:14 Dose: 50 mcg Documented by: Dextrose/Water (50% Dextrose In Water 50 Ml Syringe) 50 ml IVPUSH ASDIRECTED PRN PRN Reason: Hypoglycemia Finasteride (Finasteride 5 Mg Tab) 5 mg PO DAILY [facility] Last Admin: 03/27/21 09:12 Dose: 5 mg Documented by: Furosemide (Furosemide 40 Mg Tab) 40 mg PO DAILY@1200 [facility] Last Admin: 03/27/21 14:33 Dose: 40 mg Documented by: Furosemide (Furosemide 80 Mg Tab) 80 mg PO DAILY@0800 [facility] Last Admin: 03/28/21 07:35 Dose: 80 mg Documented by: Gabapentin (Gabapentin 300 Mg Cap) 300 mg PO BEDTIME [facility] Last Admin: 03/27/21 20:34 Dose: 300 mg Documented by: Gabapentin (Gabapentin 300 Mg Cap) 300 mg PO BID PRN PRN Reason: Pain Glucagon (Glucagon,Human Recombinant 1 Mg Vial) 1 mg IM ASDIRECTED PRN PRN Reason: Hypoglycemia Hydroxyzine HCl (Hydroxyzine Hcl 25 Mg Tab) 25 mg PO TID PRN PRN Reason: Itching Last Admin: 03/27/21 15:45 Dose: 25 mg Documented by: Vancomycin HCl (Vancomycin 1.5 Gm/300 Ml) 300 mls @ 200 mls/hr IV Q12H [facility] Last Admin: 03/27/21 23:52 Dose: 200 mls/hr Documented by: Insulin Human Lispro (Insulin Lispro 100 Unit/Ml 3 Ml Kwikpen) 0 unit SUBCUT BIDMEALS [facility]; Protocol Last Admin: 03/28/21 07:31 Dose: Not Given Documented by: Mometasone Furoate/Formoterol Fumar (Formoterol/Mometasone 200-5 Mcg 8.8 Gm Inhaler) 2 puff IH BID [facility] Last Admin: 03/27/21 20:35 Dose: 2 inhalation Documented by: Multivitamins (Vitamin B Complex With Vitamin C Tab) 1 each PO BID [facility] Last Admin: 03/27/21 20:29 Dose: 1 each Documented by: Multivitamins/Minerals (Multivitamins With Iron/Calcium/Folic Acid/Minerals Tab) 1 tab PO DAILY [facility] Last Admin: 03/27/21 09:13 Dose: 1 tab Documented by: Naproxen (Naproxen 500 Mg Tab) 500 mg PO BID [facility] Last Admin: 03/27/21 20:27 Dose: 500 mg Documented by: Levemir 100 Unit/Ml (Pen) 0 each SUBCUT BEDTIME [facility] Last Admin: 03/27/21 20:28 Dose: 1 each Documented by: Pantoprazole Sodium (Pantoprazole 40 Mg Tab.Cr) 40 mg PO BID [facility] Last Admin: 03/27/21 20:29 Dose: 40 mg Documented by: Polyethylene Glycol (Polyethylene Glycol 3350 Powder 17 Gm Packet) 17 gm PO DAILY PRN PRN Reason: Constipation Rivaroxaban (Rivaroxaban 10 Mg Tab) 10 mg PO BEDTIME [facility] Last Admin: 03/27/21 20:29 Dose: 10 mg Documented by: Saccharomyces Boulardii (Saccharomyces Boulardii (Probiotic) 250 Mg Cap) 250 mg PO BID [facility] Last Admin: 03/27/21 20:27 Dose: 250 mg Documented by: Senna/Docusate Sodium (Docusate Sodium/Sennosides 50-8.6 Mg Tab) 2 tab PO BID PRN PRN Reason: CONSTIPATION Silver Sulfadiazine (Silver Sulfadiazine 1% Crm 50 Gm Tube) 0 gm TOP BID [facility] Last Admin: 03/27/21 20:29 Dose: 1 applic Documented by: Sodium Chloride (Sodium Chloride 0.9% 10 Ml Syringe) 10 ml FLUSH ASDIRECTED PRN PRN Reason: Keep Vein Open Last Admin: 03/27/21 20:39 Dose: 10 ml Documented by: Tamsulosin HCl (Tamsulosin 0.4 Mg Cap.Er) 0.4 mg PO DAILY [facility] Last Admin: 03/27/21 09:13 Dose: 0.4 mg Documented by: Vancomycin HCl (Pharmacy To Dose - Vancomycin) 1 dose .XX ASDIRECTED [facility] Vit C/Vit E/Zinc/Copper/Lutein (Lutein/Minerals/Vitamin C/Vitamin E Acetate Cap) 1 each PO BID [facility] Last Admin: 03/27/21 20:28 Dose: 1 each Documented by: Discontinued Medications Hydrocodone Bitart/Acetaminophen (Acetaminophen/Hydrocodone 325-5 Mg Tab) 1 - 2 tab PO Q6H PRN PRN Reason: Pain Last Admin: 03/26/21 06:09 Dose: 2 tab Documented by: Hydrocodone Bitart/Acetaminophen (Acetaminophen/Hydrocodone 325-5 Mg Tab) 1 tab PO Q6H PRN PRN Reason: PAIN 4-6/10 Hydrocodone Bitart/Acetaminophen (Acetaminophen/Hydrocodone 325-5 Mg Tab) 2 tab PO Q6H PRN PRN Reason: PAIN 7-10/10 Last Admin: 03/26/21 12:18 Dose: 2 tab Documented by: Gabapentin (Gabapentin 300 Mg Cap) 300 mg PO TID [facility] Last Admin: 03/27/21 14:01 Dose: Not Given Documented by: Sodium Chloride (Normal Saline) 500 mls @ 999 mls/hr IV .BOLUS ONE Stop: 03/25/21 15:02 Last Admin: 03/25/21 15:05 Dose: 999 mls/hr Documented by: Sodium Chloride (Normal Saline) 1,000 mls @ 100 mls/hr IV ASDIRECTED [facility] Last Admin: 03/26/21 16:54 Dose: 100 mls/hr Documented by: Ceftriaxone Sodium 1 gm/ (Sodium Chloride) 50 mls @ 200 mls/hr IV Q24H [facility] Last Admin: 03/25/21 19:47 Dose: Not Given Documented by: Vancomycin HCl 2 gm/ Premix 400 mls @ 200 mls/hr IV Q12H [facility] Last Admin: 03/25/21 19:47 Dose: Not Given Documented by: Ceftriaxone Sodium 1 gm/ (Sodium Chloride) 50 mls @ 200 mls/hr IV Q24H [facility] Last Admin: 03/25/21 20:52 Dose: 200 mls/hr Documented by: Vancomycin HCl 2 gm/ Premix 400 mls @ 200 mls/hr IV Q12H [facility] Stop: 03/27/21 11:00 Last Admin: 03/27/21 09:35 Dose: 200 mls/hr Documented by: Insulin Glargine (Insulin Glargine,Human Rec. Analog 100 Units/Ml 3 Ml Pen) 8 units SUBCUT BEDTIME [facility] Last Admin: 03/26/21 21:53 Dose: 8 units Documented by: Insulin Human Lispro (Insulin Lispro 100 Unit/Ml 3 Ml Kwikpen) 0 unit SUBCUT TIDMEALS [facility]; Protocol Last Admin: 03/26/21 13:43 Dose: Not Given Documented by: Mometasone Furoate/Formoterol Fumar (Formoterol/Mometasone 200-5 Mcg 8.8 Gm Inhaler) 2 puff IH BID [facility] Naproxen (Naproxen 500 Mg Tab) 500 mg PO DAILY PRN PRN Reason: PAIN Oxycodone/Acetaminophen (Acetaminophen/Oxycodone 325-5 Mg Tab) 2 tab PO ONETIME STA Stop: 03/25/21 14:33 Last Admin: 03/25/21 15:04 Dose: 2 tab Documented by: - Exam General: Alert, Oriented, Cooperative Skin: Other (Erythema left lower leg. It's mildly improved.) - Patient Data Lab Results Last 24 hrs: Laboratory Results - last 24 hr 03/27/21 03/27/21 03/28/21 Range/Units 08:35 17:25 06:56 POC Glucose 190 H 149 H (80-116) mg/dL Vancomycin Trough 19.7 H (<0.8) ug/mL Result Diagrams: 03/26/21 21:55 03/26/21 21:55 Shai Results Last 24 hrs: Microbiology 03/25/21 14:55 Aerobic Blood Culture - Preliminary Blood - Venous NO GROWTH AFTER 2 DAYS Anaerobic Blood Culture - Preliminary NO GROWTH AFTER 2 DAYS 03/25/21 15:05 Aerobic Blood Culture - Preliminary Blood - Venous - Lab Draw NO GROWTH AFTER 2 DAYS Anaerobic Blood Culture - Final Sepsis Event Note - Evaluation Sepsis Screening Result: No Definite Risk - Focused Exam Vital Signs: Vital Signs Temp Pulse Resp BP Pulse Ox 03/28/21 00:00 98.7 F 82 18 122/70 91 L - Problem List & Annotations (1) Palliative care status SNOMED Code(s): 233928298 Code(s): Z51.5 - ENCOUNTER FOR PALLIATIVE CARE Status: Acute Current Visit: Yes (2) Cellulitis of left lower leg SNOMED Code(s): 641699774 Code(s): L03.116 - CELLULITIS OF LEFT LOWER LIMB Status: Acute Current Visit: Yes (3) Diabetes mellitus type 2, uncontrolled SNOMED Code(s): 393392543, 749853219 Code(s): E11.65 - TYPE 2 DIABETES MELLITUS WITH HYPERGLYCEMIA Status: Acute Current Visit: Yes Qualifiers: Glycemic state: with hyperglycemia Qualified Code(s): E11.65 - Type 2 diabetes mellitus with hyperglycemia (4) History of MRSA infection SNOMED Code(s): 580034392, 036708042 Code(s): Z86.14 - PERSONAL HISTORY OF METHICILLIN RESIS STAPH INFECTION Status: Acute Current Visit: No (5) Pain in left lower leg SNOMED Code(s): 481326613181832 Code(s): M79.662 - PAIN IN LEFT LOWER LEG Status: Acute Current Visit: No (6) Venous stasis dermatitis of both lower extremities SNOMED Code(s): 03402269 Code(s): I87.2 - VENOUS INSUFFICIENCY (CHRONIC) (PERIPHERAL) Status: Acute Current Visit: No (7) Venous stasis ulcer of ankle SNOMED Code(s): 505283651 Code(s): I83.003 - VARICOSE VEINS OF UNSP LOWER EXTREMITY WITH ULCER OF ANKLE; L97.309 - NON-PRESSURE CHRONIC ULCER OF UNSP ANKLE WITH UNSP SEVERITY Status: Acute Current Visit: No - Problem List Review Problem List Initiated/Reviewed/Updated: Yes - My Orders Last 24 Hours: My Active Orders 03/27/21 09:00 Silver Sulfadiazine [Silvadene 1% Cream 50 GM] 0 gm TOP BID 03/27/21 14:05 Gabapentin [Neurontin] 300 mg PO BID PRN 03/27/21 21:00 Gabapentin [Neurontin] 300 mg PO BEDTIME Non-Formulary Medication [NF Drug] 0 each SUBCUT BEDTIME 03/28/21 00:00 VANCOmycin 1.5 GM/300 ML 300 ml IV Q12H 03/28/21 08:08 Consult to Occupational Therapy [OT Evaluation and Treatment] [CONS] Routine Consult to Physical Therapy [PT Evaluation and Treatment] [CONS] Routine 03/29/21 11:30 VANCOMYCIN TROUGH [CHEM] Timed - Plan Plan:: 1. Reading for culture results. So far no growth. 2. Continue antibiotic treatment and wound care. 3. The patient's been laying in bed a lot and at home so I will order PT/OT today.
[2021-03-28] MEDS: Multivitamins with Iron/Calcium/Folic Acid/Minerals Tab PO SCH (08:52)
[2021-03-28] MEDS: Cholecalciferol (Vitamin D3) 25 MCG Tab PO SCH (08:52)
[2021-03-28] MEDS: Pantoprazole 40 MG Tab.CR PO SCH ×2 (08:53→20:26)
[2021-03-28] MEDS: Vitamin B Complex with Vitamin C Tab PO SCH ×2 (08:53→20:26)
[2021-03-28] MEDS: Calcium Carbonate 500 MG Tablet PO SCH ×2 (08:53→20:25)
[2021-03-28] MEDS: Formoterol/Mometasone 200-5 MCG 8.8 GM Inhaler IH SCH ×2 (08:53→20:22)
[2021-03-28] MEDS: Finasteride 5 MG Tab PO SCH (08:53)
[2021-03-28] MEDS: Tamsulosin 0.4 MG Cap.ER PO SCH (08:53)
[2021-03-28] MEDS: Saccharomyces Boulardii (Probiotic) 250 MG Cap PO SCH ×2 (08:53→20:24)
[2021-03-28] MEDS: Naproxen 500 MG Tab PO SCH ×2 (08:53→20:25)
[2021-03-28] MEDS: Lutein/Minerals/Vitamin C/Vitamin E Acetate Cap PO SCH ×2 (08:53→20:25)
[2021-03-28] MEDS: Silver Sulfadiazine 1% Crm 50 GM Tube TOP SCH ×2 (09:11→20:27)
[2021-03-28] MEDS: Acetaminophen/HYDROcodone 325-10 MG Tab PO PRN ×2 (09:19→20:39)
[2021-03-28] MEDS: Furosemide 40 MG Tab PO SCH (12:25)
[2021-03-28] MEDS: VANCOmycin 1.5 GM/300 ML 300 ML IV SCH ×2 (12:25→23:53)
[2021-03-28] MEDS: hydrOXYzine HCl 25 MG Tab PO PRN (13:18)
[2021-03-28] MEDS: Rivaroxaban 10 MG Tab PO SCH (20:27)
[2021-03-28] MEDS: cefTRIAXone 1 GM Vial IVPUSH SCH (20:29)
[2021-03-28] MEDS: Sodium Chloride 0.9% 10 ML Syringe FLUSH PRN (20:32)
[2021-03-28] MEDS: Gabapentin 300 MG Cap PO SCH (20:39)
[2021-03-28] MEDS: LEVEMIR 100 UNIT/ML SUBCUT SCH (20:43)
[2021-03-29] MEDS: Sodium Chloride 0.9% 10 ML Syringe FLUSH PRN (00:07)
[2021-03-29] MEDS: Furosemide 80 MG Tab PO SCH (08:19)
[2021-03-29] MEDS: Insulin Lispro 100 Unit/ML 3 ML KwikPen SUBCUT SCH ×2 (08:19→17:35)
[2021-03-29] MEDS: Formoterol/Mometasone 200-5 MCG 8.8 GM Inhaler IH SCH ×2 (08:19→20:47)
[2021-03-29] MEDS: Tamsulosin 0.4 MG Cap.ER PO SCH (08:20)
[2021-03-29] MEDS: Vitamin B Complex with Vitamin C Tab PO SCH (08:20)
[2021-03-29] MEDS: Cholecalciferol (Vitamin D3) 25 MCG Tab PO SCH (08:20)
[2021-03-29] MEDS: Multivitamins with Iron/Calcium/Folic Acid/Minerals Tab PO SCH (08:20)
[2021-03-29] MEDS: Pantoprazole 40 MG Tab.CR PO SCH ×2 (08:20→20:47)
[2021-03-29] MEDS: Naproxen 500 MG Tab PO SCH (08:20)
[2021-03-29] MEDS: Lutein/Minerals/Vitamin C/Vitamin E Acetate Cap PO SCH (08:20)
[2021-03-29] MEDS: Calcium Carbonate 500 MG Tablet PO SCH (08:20)
[2021-03-29] MEDS: Silver Sulfadiazine 1% Crm 50 GM Tube TOP SCH (08:21)
[2021-03-29] MEDS: Finasteride 5 MG Tab PO SCH (08:21)
[2021-03-29] MEDS: Saccharomyces Boulardii (Probiotic) 250 MG Cap PO SCH (08:21)
[2021-03-29] MEDS: Acetaminophen/HYDROcodone 325-10 MG Tab PO PRN (10:27)
[2021-03-29] MEDS: VANCOmycin 1.5 GM/300 ML 300 ML IV SCH (12:54)
[2021-03-29] MEDS: VANCOmycin 1 GM/200 ML 1 GM in Premix Bag 1 BAG IV SCH (12:55)
[2021-03-29] MEDS: Furosemide 40 MG Tab PO SCH (12:55)
--- NOTE | 2021-03-29 13:28 | PN ---
DATE SEEN: 03/29/2021 HISTORY: Cristian is a 70-year-old man with a history of severe venous stasis disease of the legs, obesity, type 2 diabetes, diabetic peripheral neuropathy, and chronic atrial fibrillation. Cristian was hospitalized approximately 2 months ago on February 15 for leg cellulitis. He was discharged to home for outpatient therapy and then was readmitted on 03/25 with cellulitis, open weeping ulcers that had failed outpatient treatment. Since admission, he has had leg cultures done from his weeping areas of venous disease on his leg. This has come back showing heavy growth of gram-negative bacilli, heavy growth of Staph aureus, and a 2nd gram-negative bacillus with sensitivities all pending. Cristian has been maintained on Rocephin and vancomycin, which is followed by Infectious Disease out [facility]. Cristian is comfortable today on exam. He is sitting up, working on his computer with his leg hanging down and a gauze dressing in place. PHYSICAL EXAMINATION: VITAL SIGNS: Blood pressure 124/65, pulse 84 and regular, respirations 20, O2 saturation 94% on room air, and temperature 97.9. SKIN: Shows the wrap in place on his left leg. He has some venous stasis changes of the right leg as well. He also has this erythematous area on the upper back from the base of his neck down to and between the shoulder blades that he has been itching. HEENT: Shows mouth to be dry. LUNGS: Clear. HEART: Regular. ABDOMEN: Obese. EXTREMITIES: Show 3+ pitting edema to the upper tibia left side with dull red venous stasis changes. Dressing in place, not removed at this time. LABORATORY: Hemoglobin 12.8, white count 8,700, MCV 79, BUN 17, creatinine 1.3. CRP 64.5, all done back on 03/26/2021. Last vancomycin trough level on 03/27 was 19.7. ASSESSMENT: 1. Cellulitis left leg due to chronic venous stasis disease. 2. Type 2 diabetes. 3. Chronic atrial fibrillation, on anticoagulation. 4. Chronic obstructive pulmonary disease. 5. Hyperlipidemia. 6. Benign prostatic hypertrophy. PLAN: We will continue IV antibiotics, increase his leg elevation, awaits sensitivities for his leg ulcer. We will also provide palliative care measures for his underlying medical problems and follow closely. /[id number] [place]
[2021-03-29] MEDS: cefTRIAXone 1 GM Vial IVPUSH SCH (20:46)
[2021-03-29] MEDS: Gabapentin 300 MG Cap PO SCH (20:47)
[2021-03-29] MEDS: Rivaroxaban 10 MG Tab PO SCH (20:47)
[2021-03-29] MEDS: LEVEMIR SUBCUT SCH (20:49)
[2021-03-29] MEDS ORDERED: Silver Sulfadiazine 1% Crm 50 GM Tube TOP SCH (21:00)
[2021-03-30] MEDS: VANCOmycin 1 GM/200 ML 1 GM in Premix Bag 1 BAG IV SCH ×2 (00:05→12:44)
[2021-03-30] MEDS: Sodium Chloride 0.9% 10 ML Syringe FLUSH PRN (01:12)
[2021-03-30] MEDS: Insulin Lispro 100 Unit/ML 3 ML KwikPen SUBCUT SCH ×2 (08:17→17:37)
[2021-03-30] MEDS: Furosemide 80 MG Tab PO SCH (08:18)
[2021-03-30] MEDS: Formoterol/Mometasone 200-5 MCG 8.8 GM Inhaler IH SCH ×2 (08:18→20:59)
[2021-03-30] MEDS: Tamsulosin 0.4 MG Cap.ER PO SCH (08:19)
[2021-03-30] MEDS: Finasteride 5 MG Tab PO SCH (08:19)
[2021-03-30] MEDS: Pantoprazole 40 MG Tab.CR PO SCH ×2 (08:20→21:02)
[2021-03-30] MEDS: Silver Sulfadiazine 1% Crm 50 GM Tube TOP SCH (08:20)
--- NOTE | 2021-03-30 10:55 | PN ---
DATE SEEN: 03/30/2021 HISTORY: Cristian is a 70-year-old who was in acute care, receiving IV antibiotics for left leg cellulitis. He has been stable. He continues to have an open area on his left leg with dressing changes, and yesterday we started Nick wrap for compression as he has been unable to tolerate Unna boots and compression stockings in the past. PHYSICAL EXAMINATION: GENERAL: He is alert, comfortable, does report leg pain, however, the dressings were removed. His wound cleaned and it shows an irregular approximately 3 x 6 cm area of partial-thickness ulcer with an adjacent 2 x 3 area of similar ulceration. No purulence. He has dependent rubor of the lower extremity from the knee down with some erythema extending up to the patella on the left knee. He has milder venous stasis changes on the right leg with no ulcers. Edema remains at 3+ left leg, 1 to 2+ right leg. ASSESSMENT: Cellulitis, left leg. PLAN: Culture and sensitivity have returned showing heavy growth of pseudomonas, MSSA, klebsiella, and citrobacter. These are sensitive to his current antibiotics. Through today, we will stop the vancomycin and continue with just Rocephin starting tomorrow along with his topical Silvadene dressing changes. I have again stressed the importance of leg elevation, compression wrap, etc. to get the swelling down. /[id number] [id number] TAMERA/TATY
[2021-03-30] MEDS: Furosemide 40 MG Tab PO SCH (12:44)
[2021-03-30] MEDS: LEVEMIR SUBCUT SCH (20:56)
[2021-03-30] MEDS: Rivaroxaban 10 MG Tab PO SCH (21:00)
[2021-03-30] MEDS: Gabapentin 300 MG Cap PO SCH (21:08)
[2021-03-30] MEDS: cefTRIAXone 1 GM Vial IVPUSH SCH (21:09)
[2021-03-31] MEDS: hydrOXYzine HCl 25 MG Tab PO PRN (00:23)
[2021-03-31] MEDS: Gabapentin 300 MG Cap PO PRN (00:23)
[2021-03-31] MEDS: VANCOmycin 1 GM/200 ML 1 GM in Premix Bag 1 BAG IV SCH (00:59)
[2021-03-31] MEDS: Sodium Chloride 0.9% 10 ML Syringe FLUSH PRN ×2 (01:00→21:37)
[2021-03-31] MEDS: Insulin Lispro 100 Unit/ML 3 ML KwikPen SUBCUT SCH ×2 (08:22→18:00)
[2021-03-31] MEDS: Tamsulosin 0.4 MG Cap.ER PO SCH (08:22)
[2021-03-31] MEDS: Furosemide 80 MG Tab PO SCH (08:22)
[2021-03-31] MEDS: Finasteride 5 MG Tab PO SCH (08:22)
[2021-03-31] MEDS: Silver Sulfadiazine 1% Crm 50 GM Tube TOP SCH (08:23)
[2021-03-31] MEDS: Formoterol/Mometasone 200-5 MCG 8.8 GM Inhaler IH SCH ×2 (08:23→21:25)
[2021-03-31] MEDS: Pantoprazole 40 MG Tab.CR PO SCH ×2 (08:23→21:33)
[2021-03-31] MEDS: Polyvinyl Alcohol 1.4% Ophth Soln 15 ML Bottle EYEBOTH PRN ×2 (08:26→17:53)
[2021-03-31] MEDS: Azithromycin 250 MG Tab PO SCH (09:06)
[2021-03-31] MEDS: Acetaminophen 325 MG Tab PO PRN ×2 (09:06→21:32)
--- NOTE | 2021-03-31 13:01 | PN ---
DATE SEEN: 03/31/2021 HISTORY: Cristian is a 71-year-old in inpatient care on IV antibiotics for cellulitis of his left flank. Cristian has been receiving vancomycin and IV Rocephin for this. He has ulcers on his left leg. They are extremely slow to heal and are still draining serous fluid. Dependent edema is the biggest factor slowing his healing down. Cultures of leg have returned showing primarily Staph aureus MSSA and Klebsiella, also Rocephin sensitive. Additional growth has included Pseudomonas and Citrobacter. Cristian is having pain in the leg, not completely controlled with his gabapentin. PHYSICAL EXAMINATION: GENERAL: He is alert and appears comfortable sitting up with his leg hanging down working on the computer. Leg dressing in place. VITAL SIGNS: Blood pressure 134/68, pulse 79 and regular, respirations 20, temperature 98. SKIN: Shows leg to be wrapped. I did not unwrap his leg this morning to look at it, but he has dependent rubor in the unwrapped portion of his leg and no erythema extending above the dressing above the ACEwrap. LUNGS: Respirations are easy. NEUROLOGIC: Motor exam is symmetric. LABORATORY DATA: Blood sugar Accu-Cheks have ranged in the 140 to 200 range. ASSESSMENT: 1. Leg ulcer with venous stasis. 2. Type 2 diabetes. 3. Asthma with chronic obstructive pulmonary disease. 4. History of gastroesophageal reflux disease. 5. BPH. PLAN: We will discontinue the IV vancomycin, continue his IV Rocephin and add azithromycin 500 mg daily. We will continue with topical cares, leg elevation, and Nick wrap compression and follow closely with plans for discharge back to home anticipated within the next few days. /[id number] TAMERA/TATY
[2021-03-31] MEDS: Furosemide 40 MG Tab PO SCH (13:20)
[2021-03-31] MEDS ORDERED: Non-Formulary Medication 1 Each SUBCUT SCH (21:00)
[2021-03-31] MEDS: cefTRIAXone 1 GM Vial IVPUSH SCH (21:25)
[2021-03-31] MEDS: LEVEMIR 100 UNIT/ML SUBCUT SCH (21:28)
[2021-03-31] MEDS: Gabapentin 300 MG Cap PO SCH (21:32)
[2021-03-31] MEDS: Rivaroxaban 10 MG Tab PO SCH (21:33)
[2021-04-01] MEDS: hydrOXYzine HCl 25 MG Tab PO PRN ×2 (00:43→11:56)
[2021-04-01] MEDS: Furosemide 80 MG Tab PO SCH (08:43)
[2021-04-01] MEDS: Insulin Lispro 100 Unit/ML 3 ML KwikPen SUBCUT SCH ×2 (08:44→17:21)
[2021-04-01] MEDS: Pantoprazole 40 MG Tab.CR PO SCH ×2 (08:48→20:29)
[2021-04-01] MEDS: Tamsulosin 0.4 MG Cap.ER PO SCH (08:48)
[2021-04-01] MEDS: Formoterol/Mometasone 200-5 MCG 8.8 GM Inhaler IH SCH ×2 (08:49→20:28)
[2021-04-01] MEDS: Finasteride 5 MG Tab PO SCH (08:49)
[2021-04-01] MEDS: Polyvinyl Alcohol 1.4% Ophth Soln 15 ML Bottle EYEBOTH PRN (08:51)
[2021-04-01] MEDS: Azithromycin 250 MG Tab PO SCH (09:57)
[2021-04-01] MEDS: Silver Sulfadiazine 1% Crm 50 GM Tube TOP SCH ×2 (10:00→13:43)
[2021-04-01] MEDS: Acetaminophen 325 MG Tab PO PRN ×2 (10:07→20:30)
[2021-04-01] MEDS: Gabapentin 300 MG Cap PO PRN (10:07)
--- NOTE | 2021-04-01 10:34 | PN ---
DATE SEEN: 04/01/2021 HISTORY: Cristian is a 70-year-old man with a history of severe venous stasis disease with left leg ulcer and cellulitis. He has been treated inpatient with IV Rocephin and azithromycin. The leg is still quite painful to him with dressing changes. He is using an Nick wrap for compression, which seems to be helping and is trying to keep his leg up. PHYSICAL EXAMINATION: GENERAL: He is alert and comfortable. VITAL SIGNS: Blood pressure 136/88, pulse 87, temperature 97.9, O2 saturation 97% on room air. SKIN: Shows dependent rubor with venous stasis changes, both legs. The left leg is unwrapped and undressed revealing a 3/4 x 2-1/2 cm ulcer with a 1-cm full-thickness lesion and a smaller satellite superficial ulcer, left leg. There is mild erythema surrounding this. LUNGS: Respirations are easy. HEART: Pulse is regular. ASSESSMENT: Leg cellulitis with ulcer growing multiple organisms, but primarily staphylococcus and klebsiella. PLAN: We will continue the IV Rocephin, dressing changes, and hope for the ability to convert him to oral antibiotics with discharge to home this week. /[id number] TAMERA/TATY
[2021-04-01] MEDS: Furosemide 40 MG Tab PO SCH (11:50)
[2021-04-01] MEDS: cefTRIAXone 1 GM Vial IVPUSH SCH (20:25)
[2021-04-01] MEDS: Sodium Chloride 0.9% 10 ML Syringe FLUSH PRN (20:27)
[2021-04-01] MEDS: Gabapentin 300 MG Cap PO SCH (20:29)
[2021-04-01] MEDS: Rivaroxaban 10 MG Tab PO SCH (20:30)
[2021-04-01] MEDS: LEVEMIR 100 UNIT/ML SUBCUT SCH (20:36)
[2021-04-02] MEDS: hydrOXYzine HCl 25 MG Tab PO PRN ×2 (01:28→20:09)
[2021-04-02] MEDS: Acetaminophen 325 MG Tab PO PRN ×3 (01:32→20:09)
[2021-04-02] MEDS: Pantoprazole 40 MG Tab.CR PO SCH ×2 (08:18→20:09)
[2021-04-02] MEDS: Azithromycin 250 MG Tab PO SCH (08:18)
[2021-04-02] MEDS: Finasteride 5 MG Tab PO SCH (08:18)
[2021-04-02] MEDS: Tamsulosin 0.4 MG Cap.ER PO SCH (08:18)
[2021-04-02] MEDS: Formoterol/Mometasone 200-5 MCG 8.8 GM Inhaler IH SCH ×2 (08:19→20:08)
[2021-04-02] MEDS: Furosemide 80 MG Tab PO SCH (08:21)
[2021-04-02] MEDS: Insulin Lispro 100 Unit/ML 3 ML KwikPen SUBCUT SCH ×2 (08:24→17:03)
[2021-04-02] MEDS: Gabapentin 300 MG Cap PO PRN (09:43)
[2021-04-02] MEDS: Silver Sulfadiazine 1% Crm 50 GM Tube TOP SCH (09:46)
[2021-04-02] MEDS: Cefdinir 300 MG Cap PO SCH ×2 (09:53→20:08)
[2021-04-02] MEDS: Furosemide 40 MG Tab PO SCH (11:17)
--- NOTE | 2021-04-02 11:24 | PN ---
DATE SEEN: 04/02/2021 HISTORY: Cristian is a 70-year-old man admitted for cellulitis of the left leg. He has been on IV antibiotics. This has been a many-year problem dating back to at least 2017 or before, and [facility]. In addition to the IV antibiotics, he has had leg elevation, compression, topical Silvadene with dressing changes, and management of his diabetes. Cristian complains of leg pain still, he is slowly getting better however. His open areas are decreasing in size and laboratory had showed improvement. PHYSICAL EXAMINATION: GENERAL: He is alert and comfortable. VITAL SIGNS: Blood pressure 122/79, pulse 100 and regular, respirations normal, and temp 97.7. SKIN: Shows venous stasis changes bilaterally with a gauze dressing in place over left ankle. He has been unable to tolerate the Nick wrap compression and has been intolerant of Unna boots and had hose in the past. Respirations are easy. HEART: Regular. Motor exam is symmetric. He does have some stiffness at the hip joint on the right side from multiple previous surgeries. ASSESSMENT: Cellulitis, left leg, improving. LABORATORY DATA: White count is currently 6,800. CRP 6.6, this is steady decrease from 64 on March 26 to 23 on March 30 to 6.6 today. Blood sugar 143. PLAN: We will convert him from IV Rocephin to oral cefdinir along with his azithromycin. We will plan for discharge within the next 24 hours to home, where he will continue to have home health care visits weekly and do his dressing changes at home as well as his diabetes management. /[id number] TAMERA/TATY
[2021-04-02] MEDS: Gabapentin 300 MG Cap PO SCH (20:08)
[2021-04-02] MEDS: Rivaroxaban 10 MG Tab PO SCH (20:09)
[2021-04-02] MEDS: LEVEMIR 100 UNIT/ML SUBCUT SCH (20:15)
[2021-04-03] MEDS: Insulin Lispro 100 Unit/ML 3 ML KwikPen SUBCUT SCH (07:59)
[2021-04-03] MEDS: Formoterol/Mometasone 200-5 MCG 8.8 GM Inhaler IH SCH (08:01)
[2021-04-03] MEDS: Furosemide 80 MG Tab PO SCH (08:01)
[2021-04-03] MEDS: Tamsulosin 0.4 MG Cap.ER PO SCH (08:02)
[2021-04-03] MEDS: Cefdinir 300 MG Cap PO SCH (08:02)
[2021-04-03] MEDS: Finasteride 5 MG Tab PO SCH (08:02)
[2021-04-03] MEDS: Pantoprazole 40 MG Tab.CR PO SCH (08:03)
[2021-04-03] MEDS: Azithromycin 250 MG Tab PO SCH (08:03)
[2021-04-03] MEDS: Acetaminophen 325 MG Tab PO PRN (09:00)
[2021-04-03] MEDS: Gabapentin 300 MG Cap PO PRN (09:00)
[2021-04-03] MEDS: Silver Sulfadiazine 1% Crm 50 GM Tube TOP SCH (09:14)
--- NOTE | 2021-04-03 17:59 | DISCH ---
DISCHARGE DATE: 04/03/2021 HISTORY: Cristian is a 70-year-old man with a history of recurrent left lower leg cellulitis secondary to severe venous stasis changes. He was admitted with acute cellulitis, started on IV antibiotics. Cultures came back showing primarily staph MSSA and klebsiella. There was also citrobacter and pseudomonas growth. The patient was placed on compression wrap with Nick wrap. He could not tolerate this due to discomfort. He had also been unable to tolerate support hose and Unna boots as an outpatient. He was eventually switched to just Silvadene and gauze dressing changes with leg elevation. This helped to bring his swelling down and his leg ulcers slowly improved and decreased in size to his current size of the time of discharge of about 3/4 x 2-1/2 cm linear and an adjacent 1 cm oval ulcer with gradual filling in of granulation tissue. His bright erythema has completely gone. His laboratory CRP peaked at around 60 and came down to 6 prior to discharge. He was sent home in improved condition to continue his home dressing changes. He will have home health visits from [facility] once a week and do his own dressing changes daily. He is to see his provider at [facility] within 2 weeks for wound evaluation, and keep his regularly planned appointment in April at the [facility]. Medications on discharge include 12 units of Levemir and Silvadene cream topically as well as cefdinir 300 mg b.i.d. for 1 week. He will also continue all of his previous medications. See accompanying list. /[id number] TAMERA/TATY
== END 2021-04-03 10:40 | disposition home health service (06) | DRG 603 ==
LOC: FB.ED 13:53 → FB.MS 16:24
PROVIDERS: ADMIT Family Medicine; ATTEND Family Medicine
DX: L03.116 Cellulitis of left lower limb (principal); L97.329 Non-pressure chronic ulcer of left ankle with unspecified severity; Z68.41 Body mass index [BMI] 40.0-44.9, adult; Z51.5 Encounter for palliative care; E11.65 Type 2 diabetes mellitus with hyperglycemia; I87.2 Venous insufficiency (chronic) (peripheral); I83.023 Varicose veins of left lower extremity with ulcer of ankle; Z20.822 Contact with and (suspected) exposure to COVID-19; K59.09 Other constipation; E11.40 Type 2 diabetes mellitus with diabetic neuropathy, unspecified; K21.9 Gastro-esophageal reflux disease without esophagitis; E11.42 Type 2 diabetes mellitus with diabetic polyneuropathy; F43.10 Post-traumatic stress disorder, unspecified; E66.9 Obesity, unspecified; M19.90 Unspecified osteoarthritis, unspecified site; F32.9 Major depressive disorder, single episode, unspecified; D64.9 Anemia, unspecified; Z96.641 Presence of right artificial hip joint; G47.30 Sleep apnea, unspecified; J44.9 Chronic obstructive pulmonary disease, unspecified; N40.0 Benign prostatic hyperplasia without lower urinary tract symptoms; B96.1 Klebsiella pneumoniae [K. pneumoniae] as the cause of diseases classified elsewhere; B96.5 Pseudomonas (aeruginosa) (mallei) (pseudomallei) as the cause of diseases classified elsewhere; B95.61 Methicillin susceptible Staphylococcus aureus infection as the cause of diseases classified elsewhere; I10 Essential (primary) hypertension; R06.02 Shortness of breath; Z86.14 Personal history of Methicillin resistant Staphylococcus aureus infection; Z88.1 Allergy status to other antibiotic agents; Z88.5 Allergy status to narcotic agent; Z88.8 Allergy status to other drugs, medicaments and biological substances; Z79.899 Other long term (current) drug therapy; Z79.4 Long term (current) use of insulin; Z86.718 Personal history of other venous thrombosis and embolism; Z98.41 Cataract extraction status, right eye; Z98.42 Cataract extraction status, left eye; Z85.72 Personal history of non-Hodgkin lymphomas; Z87.891 Personal history of nicotine dependence; Z79.01 Long term (current) use of anticoagulants; Z88.0 Allergy status to penicillin; Z79.51 Long term (current) use of inhaled steroids
CPT/HCPCS: 36415; 73590; 80053; 83605; 83735; 83880; 84484; 85025; 86140; 87040 ×2; 93005; 93010; 99284; 99285; A9270; J7030; J7040; 80048; 80069; 80202; 82947; 87070; 87075; 87077; 87186; 87205; 97166-GO; J0696; J1815; J1815-GY; J3370; U0002

== ENCOUNTER 2021-09-24 12:14 | Inpatient (IN) | payer OTHER, MEDICARE ==
[2021-09-24] MEDS ORDERED: cefTRIAXone 1 GM in Sodium Chloride 0.9% 50 ML IV SCH ×2 (14:15→15:45)
[2021-09-24] MEDS: VANCOmycin 1 GM/200 ML 1 GM in Premix Bag 1 BAG IV SCH (14:32)
[2021-09-24] MEDS: cefTRIAXone 1 GM Vial IVPUSH SCH (14:32)
--- NOTE | 2021-09-24 14:52 | CR ---
CHEST ONE VIEW INDICATION: Cough, dyspnea FINDINGS: Two AP portable upright views of the chest were obtained 09/24/21 and compared with 06/11/14. The heart appears to be within normal limits in size. There is an appearance of a nodular density at the left lung base. The possibility of a neoplastic process is difficult to exclude, although focal pneumonia could also be present. This finding was not present on the previous study. The heart appears to be within normal limits in size. The aorta is slightly tortuous. No gross consolidating pneumonia or definite effusion was identified. Upper lung field pulmonary vasculature is mildly prominent raising the question of a mild degree of pulmonary vascular congestion. This could be on the basis of acute myocardial event or noncardiac cause, but should be correlated clinically. Evidence of exogenous obesity is noted. IMPRESSION: 1. Cannot exclude pulmonary vascular congestion. 2. Nodular lesion at the left lung base, etiology indeterminate, could represent neoplasia but should be correlated clinically as focal pneumonia is a possibility. 3. Exogenous obesity. Report was called to Dr. Cook at 1410 hours. [facility]
--- NOTE | 2021-09-24 15:31 | EDM.PDOC ---
ED HPI GENERAL MEDICAL PROBLEM - General Chief Complaint: Lower Extremity Injury/Pain Stated Complaint: PAIN Time Seen by Provider: 09/24/21 12:20 Source of Information: Reports: Patient History Limitations: Reports: No Limitations - History of Present Illness INITIAL COMMENTS - FREE TEXT/NARRATIVE: Patient is a 71 YO WM who presented to the ED because of bilateral leg pain, re dness, and swelling which started a week ago and has been progressively getting worse. There is no fever, chills but patient has increasing cough,dyspnea more than usual. His cough is mostly non-productive, occasionally with whitish phlegm.There is no nausea,vomiting, changes in bowel movements or urinary symptoms. 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 - Related Data Allergies Allergy/AdvReac Type Severity Reaction Status Date / Time ampicillin Allergy Cannot Verified 09/24/21 15:44 Remember clindamycin Allergy Cannot Verified 09/24/21 15:44 Remember codeine Allergy Cannot Verified 09/24/21 15:44 Remember imipramine HCl Allergy Cannot Verified 09/24/21 15:44 [From Tofranil] Remember insulin glargine Allergy Drowsiness Verified 09/24/21 15:44 [From Lantus U-100 Insulin] lithium [[place]] Allergy Cannot Verified 09/24/21 15:44 Remember metformin Allergy Hives Verified 09/24/21 15:44 Penicillins Allergy Swelling Verified 09/24/21 15:44 prednisone Allergy Other Verified 09/24/21 15:44 quetiapine fumarate Allergy Cannot Verified 09/24/21 15:44 [From Seroquel] Remember tramadol Allergy Cannot Verified 09/24/21 15:44 Remember Home Meds: Home Meds Albuterol Sulfate [Albuterol Sulfate HFA] 2 puff INH Q4H PRN 06/11/14 [History] Finasteride [Proscar] 5 mg PO DAILY 06/11/14 [History] Furosemide [Lasix] 80 mg PO DAILY@0800 06/11/14 [History] Multivitamin with Minerals [Ngh-U-Rbfr-Minerals] 1 tab PO DAILY 06/11/14 [History] Tamsulosin [Flomax] 0.4 mg PO DAILY 06/11/14 [History] Testosterone Cypionate [Depo-Testosterone] 50 mg IM TU 06/11/14 [History] Alogliptin Benzoate [Alogliptin] 25 mg PO DAILY 12/22/20 [History] Calcium Carbonate [Calcium] 600 mg PO BID 12/22/20 [History] Furosemide [Lasix] 40 mg PO DAILY@1200 12/22/20 [History] Gabapentin [Neurontin] 300 mg PO TID 12/22/20 [History] Omeprazole 20 mg PO BID 12/22/20 [History] Rivaroxaban [Xarelto] 10 mg PO BEDTIME 12/22/20 [History] Vit C/E/Zn/Coppr/Lutein/Zeaxan [Preservision Areds 2 Softgel] 1 each PO BID 12/22/20 [History] Budesonide/Formoterol [Symbicort 160-4.5 MCG] 2 puff IH BID 02/15/21 [History] Ceramide 1,3,6-II/Salicylic/B3 [Cerave SA Cream] 1 applic TOP DAILY 02/15/21 [History] Cholecalciferol (Vitamin D3) [Vitamin D3] 50 mcg PO DAILY 02/15/21 [History] Dextran 70/Hypromellose [Artificial Tears] 1 drop EYEBOTH QID PRN 02/15/21 [History] Naproxen 500 mg PO DAILY PRN 02/15/21 [History] Sennosides/Docusate Sodium [Senna-S] 2 tab PO BID 02/15/21 [History] Vitamin B Complex 1 tab PO BID 02/15/21 [History] hydrOXYzine HCL [hydrOXYzine] 25 mg PO TID PRN 02/15/21 [History] polyethylene glycoL 3350 [MiraLAX] 17 gm PO DAILY PRN 02/15/21 [History] Acetaminophen [Tylenol] 650 mg PO Q6H PRN tablet 04/03/21 [Rx] Cefdinir [Omnicef] 300 mg PO BID #15 cap 04/03/21 [Rx] Insulin Detemir [Levemir Flextouch] 12 units SUBCUT BEDTIME #0 04/03/21 [Rx] Silver Sulfadiazine [Silvadene 1% Cream 50 GM] 5 gm TOP DAILY #50 g 04/03/21 [Rx] Past Medical History - Past Health History Medical/Surgical History: Denies Medical/Surgical History HEENT History: Reports: Other (See Below) Other 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 Cardiovascular History: Reports: Blood Clots/VTE/DVT, Hypertension Respiratory History: Reports: Asthma, COPD, Sleep Apnea Other Respiratory History: uses CPAP @ hx Gastrointestinal History: Reports: Chronic Constipation, GERD Musculoskeletal History: Reports: Arthritis Neurological History: Reports: Concussion, Migraines, Neuropathy, Diabetic Psychiatric History: Reports: Addiction, Depression, Psych Hospitalization(s), PTSD, Suicide Attempt Other Psychiatric History: hx ETOH abuse Endocrine/Metabolic History: Reports: Diabetes, Type II, Obesity/BMI 30+ 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 Hematologic History: Reports: Anemia, Blood Transfusion(s) Oncologic (Cancer) History: Reports: Lymphoma Dermatologic History: Reports: Cellulitis, Venous Stasis Dermatitis - Infectious Disease History Infectious Disease History: Reports: Mumps - Past Surgical History Head Surgeries/Procedures: Reports: None HEENT Surgical History: Reports: Cataract Surgery, Laser Surgery Other HEENT Surgeries/Procedures: bilat cataract surg, bilat laser surg GI Surgical History: Reports: Colonoscopy, Hernia Repair/Other Musculoskeletal Surgical History: Reports: Hip Replacement Other Musculoskeletal Surgeries/Procedures:: R hip replacement x 3 Social & Family History - Family History Family Medical History: No Pertinent Family History - Caffeine Use Caffeine Use: Reports: Coffee - Living Situation & Occupation Occupation: Retired Review of Systems - Review of Systems Review Of Systems: See Below Constitutional: Reports: No Symptoms Eyes: Reports: No Symptoms Ears: Reports: No Symptoms Nose: Reports: No Symptoms Mouth/Throat: Reports: No Symptoms Respiratory: Reports: Shortness of Breath, Cough, Sputum Cardiovascular: Reports: No Symptoms GI/Abdominal: Reports: No Symptoms Genitourinary: Reports: No Symptoms Musculoskeletal: Reports: No Symptoms Skin: Reports: Erythema, Wound Neurological: Reports: No Symptoms Psychiatric: Reports: No Symptoms ED EXAM, GENERAL - Physical Exam Exam: See Below Exam Limited By: No Limitations General Appearance: Alert, No Apparent Distress Eye Exam: Bilateral Eye: PERRL Ears: Normal External Exam, Normal Canal Nose: Normal Inspection, Normal Mucosa, No Blood Throat/Mouth: Normal Inspection, Normal Lips, Normal Teeth Head: Atraumatic, Normocephalic Neck: Normal Inspection, Supple, Non-Tender, Full Range of Motion Respiratory/Chest: No Respiratory Distress, Lungs Clear, Normal Breath Sounds, No Accessory Muscle Use, Chest Non-Tender Cardiovascular: Normal Peripheral Pulses, Regular Rate, Rhythm, No Edema, No Gallop, No JVD, No Murmur GI/Abdominal: Normal Bowel Sounds, Soft, Non-Tender, No Organomegaly, No Abnormal Bruit, Rigid Back Exam: Normal Inspection, Full Range of Motion Extremities: Normal Inspection, Normal Range of Motion, No Pedal Edema, Normal Capillary Refill Neurological: Alert, Oriented, CN II-XII Intact, Normal Cognition, Normal Gait, Normal Reflexes, No Motor/Sensory Deficits Psychiatric: Normal Affect Skin Exam: Warm, Erythema #1 Interpretation EKG Date: 09/24/21 Time: 16:53 Rhythm: NSR Rate (Beats/Min): 99 [place]: Normal P-Wave: Present QRS: Other (LAFB) ST-T: Normal QT: Normal IL/PQ Interval: 171 Comparison: Change From Previous EKG EKG Interpretation Comments: NSR LAFB Course - Vital Signs Text/Narrative:: Lab/EKG/CXR result was reviewed and discussed with patient Percocet 5mg, 2 PO x1 Toradol 30 mg IV x 1 Vancomycin 1 gm IV Rocephin 1 gm IV Last Recorded V/S: Last Vital Signs Temp 37.6 C 09/24/21 12:14 Pulse 103 H 09/24/21 12:14 Resp 20 09/24/21 12:14 BP 111/64 09/24/21 12:14 Pulse Ox 95 09/24/21 12:14 - Orders/Labs/Meds Orders: Active Orders 24 hr Category Date Time Status Patient Status [ADT] Routine ADT 09/24/21 15:40 Active Blood Glucose Check, Bedside [RC] BIDMEALS Care 09/24/21 15:40 Active Oxygen Therapy [RC] PRN Care 09/24/21 15:40 Active Up With Assistance [RC] ASDIRECTED Care 09/24/21 15:40 Active VTE/DVT Education [RC] Per Unit Routine Care 09/24/21 15:40 Active Vital Signs [RC] Q4H Care 09/24/21 15:40 Active Heart Healthy Diet [DIET] Diet 09/24/21 Dinner Ordered BASIC METABOLIC PANEL,BMP [CHEM] AM Lab 09/25/21 05:11 Ordered CBC WITH AUTO DIFF [HEME] AM Lab 09/25/21 05:11 Ordered CULTURE BLOOD [BC] Urgent Lab 09/24/21 13:05 Received CULTURE BLOOD [BC] Urgent Lab 09/24/21 13:15 Received Acetaminophen/oxyCODONE [Percocet 325-5 MG] Med 09/24/21 15:40 Active 2 tab PO Q4H PRN Morphine Med 09/24/21 15:40 Active 2 mg IVPUSH Q2H PRN Ondansetron [Zofran] Med 09/24/21 15:40 Active 4 mg IV Q4H PRN Sodium Chloride 0.9% [Saline Flush] Med 09/24/21 13:13 Active 10 ml FLUSH ASDIRECTED PRN Sulfamethoxazole/Trimethoprim [Septra DS] Med 09/24/21 17:00 Active 1 tab PO BID VANCOmycin 1 GM/200 ML 1 gm Med 09/24/21 14:30 Active Premix Bag 1 bag IV Q12H cefTRIAXone [Rocephin] Med 09/24/21 14:30 Active 1 gm IVPUSH Q24H Blood Culture x2 Reflex Set [OM.PC] Urgent Oth 09/24/21 12:47 Ordered Saline Lock Insert [OM.PC] Routine Oth 09/24/21 13:13 Ordered Resuscitation Status Routine Resus Stat 09/24/21 15:40 Ordered Medication Orders Ceftriaxone Sodium (Ceftriaxone 1 Gm Vial) 1 gm IVPUSH Q24H [facility] Last Admin: 09/24/21 14:32 Dose: 1 gm Documented by: OTILIA Vancomycin HCl 1 gm/ Premix 200 mls @ 200 mls/hr IV Q12H [facility] Last Admin: 09/24/21 14:32 Dose: 200 mls/hr Documented by: OTILIA Morphine Sulfate (Morphine 2 Mg/Ml Syringe) 2 mg IVPUSH Q2H PRN PRN Reason: Pain (severe 7-10) Ondansetron HCl (Ondansetron 4 Mg/2 Ml Sdv) 4 mg IV Q4H PRN PRN Reason: Nausea/Vomiting Oxycodone/Acetaminophen (Acetaminophen/Oxycodone 325-5 Mg Tab) 2 tab PO Q4H PRN PRN Reason: Pain (moderate 4-6) Last Admin: 09/24/21 16:13 Dose: 2 tab Documented by: OTILIA Sodium Chloride (Sodium Chloride 0.9% 10 Ml Syringe) 10 ml FLUSH ASDIRECTED PRN PRN Reason: Keep Vein Open Trimethoprim/Sulfamethoxazole (Sulfamethoxazole/Trimethoprim 800-160 Mg Tab) 1 tab PO BID [facility] Labs: Laboratory Tests 09/24/21 09/24/21 09/24/21 Range/Units 13:05 13:05 13:05 WBC 9.5 (3.2-10.1) x10-3/uL RBC 5.78 (3.90-5.90) x10(6)uL Hgb 14.0 (12.9-17.7) g/dL Hct 44.1 (38.3-50.1) % MCV 76.3 L (80.8-98.7) fL MCH 24.2 L (27.0-33.3) pg MCHC 31.8 (28.7-35.3) g/dL RDW 15.9 H (12.4-15.0) % Plt Count 147 (117-477) x10(3)uL MPV 7.0 (6.7-11.0) fL Neut % (Auto) 82.6 H (40.3-71.8) % Lymph % (Auto) 7.7 L (15.8-45.3) % [place] % (Auto) 9.4 (5.5-15.2) % Eos % (Auto) 0.0 L (0.1-6.8) % Baso % (Auto) 0.3 (0.3-3.8) % Neut # (Auto) 7.8 H (1.7-6.9) x10-3/uL Lymph # (Auto) 0.7 (0.5-4.5) x10-3/uL [place] # (Auto) 0.9 (0.0-1.2) x10-3/uL Eos # (Auto) 0.0 (0.0-0.6) x10-3/uL Baso # (Auto) 0.0 (0.0-0.3) x10-3/uL Sodium 138 (135-145) mmol/L Potassium 3.6 (3.5-5.3) mmol/L Chloride 101 (100-110) mmol/L Carbon Dioxide 33 H (21-32) mmol/L BUN 15 (7-18) mg/dL Creatinine 1.3 (0.70-1.30) mg/dL Est Cr Clr Drug Dosing TNP Estimated GFR (MDRD) 54 L (>60) BUN/Creatinine Ratio 11.5 (9-20) Glucose 147 H (80-116) mg/dL Lactic Acid (0.4-2.0) mmol/L Calcium 8.8 (8.6-10.2) mg/dL Total Bilirubin 0.6 (0.1-1.3) mg/dL AST 30 H D (5-25) IU/L ALT 33 D (12-36) U/L Alkaline Phosphatase 97 (56-112) IU/L Troponin I 29.0 (4.0-60.3) pg/mL C-Reactive Protein (0.5-0.9) mg/dL NT-Pro-B Natriuret Pep 673 H (<=125) pg/mL Total Protein 6.8 (6.0-8.0) g/dL Albumin 3.0 L (3.2-4.6) g/dL Globulin 3.8 g/dL Albumin/Globulin Ratio 0.8 SARS-CoV-2 RNA (OPAL) (NEGATIVE) 09/24/21 09/24/21 09/24/21 Range/Units 13:05 13:15 13:49 WBC (3.2-10.1) x10-3/uL RBC (3.90-5.90) x10(6)uL Hgb (12.9-17.7) g/dL Hct (38.3-50.1) % MCV (80.8-98.7) fL MCH (27.0-33.3) pg MCHC (28.7-35.3) g/dL RDW (12.4-15.0) % Plt Count (117-477) x10(3)uL MPV (6.7-11.0) fL Neut % (Auto) (40.3-71.8) % Lymph % (Auto) (15.8-45.3) % [place] % (Auto) (5.5-15.2) % Eos % (Auto) (0.1-6.8) % Baso % (Auto) (0.3-3.8) % Neut # (Auto) (1.7-6.9) x10-3/uL Lymph # (Auto) (0.5-4.5) x10-3/uL [place] # (Auto) (0.0-1.2) x10-3/uL Eos # (Auto) (0.0-0.6) x10-3/uL Baso # (Auto) (0.0-0.3) x10-3/uL Sodium (135-145) mmol/L Potassium (3.5-5.3) mmol/L Chloride (100-110) mmol/L Carbon Dioxide (21-32) mmol/L BUN (7-18) mg/dL Creatinine (0.70-1.30) mg/dL Est Cr Clr Drug Dosing Estimated GFR (MDRD) (>60) BUN/Creatinine Ratio (9-20) Glucose (80-116) mg/dL Lactic Acid 1.1 (0.4-2.0) mmol/L Calcium (8.6-10.2) mg/dL Total Bilirubin (0.1-1.3) mg/dL AST (5-25) IU/L ALT (12-36) U/L Alkaline Phosphatase (56-112) IU/L Troponin I (4.0-60.3) pg/mL C-Reactive Protein 24.0 H* (0.5-0.9) mg/dL NT-Pro-B Natriuret Pep (<=125) pg/mL Total Protein (6.0-8.0) g/dL Albumin (3.2-4.6) g/dL Globulin g/dL Albumin/Globulin Ratio SARS-CoV-2 RNA (OPAL) Negative (NEGATIVE) Meds: Medications Generic Name Dose Route Start Last Admin Trade Name Freq PRN Reason Stop Dose Admin Ceftriaxone Sodium 1 gm 09/24/21 14:30 09/24/21 14:32 Ceftriaxone 1 Gm Vial IVPUSH 1 gm Q24H CARO Administration Vancomycin HCl 1 gm/ Premix 200 mls @ 200 mls/hr 09/24/21 14:30 09/24/21 14:32 IV 200 mls/hr Q12H CARO Administration Morphine Sulfate 2 mg 09/24/21 15:40 Morphine 2 Mg/Ml Syringe IVPUSH Q2H PRN Pain (severe 7-10) Ondansetron HCl 4 mg 09/24/21 15:40 Ondansetron 4 Mg/2 Ml Sdv IV Q4H PRN Nausea/Vomiting Oxycodone/Acetaminophen 2 tab 09/24/21 15:40 09/24/21 16:13 Acetaminophen/Oxycodone 325-5 Mg Tab PO 2 tab Q4H PRN Administration Pain (moderate 4-6) Sodium Chloride 10 ml 09/24/21 13:13 Sodium Chloride 0.9% 10 Ml Syringe FLUSH ASDIRECTED PRN Keep Vein Open Trimethoprim/Sulfamethoxazole 1 tab 09/24/21 17:00 Sulfamethoxazole/Trimethoprim 800-160 Mg Tab PO BID CARO Discontinued Medications Generic Name Dose Route Start Last Admin Trade Name Leanna PRN Reason Stop Dose Admin Ketorolac Tromethamine 30 mg 09/24/21 16:02 09/24/21 16:12 Ketorolac 30 Mg/Ml Sdv IVPUSH 09/24/21 16:03 30 mg NOW STA Administration Departure - Departure Time of Disposition: 15:00 Disposition: Admitted As Inpatient 65 Condition: Good Clinical Impression: Cellulitis, COPD exacerbation, Pneumonia, MRSA (methicillin resistant Staphylococcus aureus), Diabetes mellitus - Discharge Information Referrals: Duarte Broussard MD [Primary Care Provider] - Forms: ED Department Discharge Sepsis Event Note (ED) - Focused Exam Vital Signs: Vital Signs Temp Pulse Resp BP Pulse Ox 09/24/21 12:14 37.6 C 103 H 20 111/64 95 - My Orders Last 24 Hours: My Active Orders 09/24/21 12:47 Blood Culture x2 Reflex Set [OM.PC] Urgent 09/24/21 13:05 CULTURE BLOOD [BC] Urgent 09/24/21 13:13 Sodium Chloride 0.9% [Saline Flush] 10 ml FLUSH ASDIRECTED PRN Saline Lock Insert [OM.PC] Routine 09/24/21 13:15 CULTURE BLOOD [BC] Urgent 09/24/21 14:30 VANCOmycin 1 GM/200 ML 1 gm Premix Bag 1 bag IV Q12H cefTRIAXone [Rocephin] 1 gm IVPUSH Q24H 09/24/21 15:40 Patient Status [ADT] Routine Blood Glucose Check, Bedside [RC] BIDMEALS Oxygen Therapy [RC] PRN Up With Assistance [RC] ASDIRECTED VTE/DVT Education [RC] Per Unit Routine Vital Signs [RC] Q4H Acetaminophen/oxyCODONE [Percocet 325-5 MG] 2 tab PO Q4H PRN Morphine 2 mg IVPUSH Q2H PRN Ondansetron [Zofran] 4 mg IV Q4H PRN Resuscitation Status Routine 09/24/21 Dinner Heart Healthy Diet [DIET] 09/24/21 17:00 Sulfamethoxazole/Trimethoprim [Septra DS] 1 tab PO BID 09/25/21 05:11 BASIC METABOLIC PANEL,BMP [CHEM] AM CBC WITH AUTO DIFF [HEME] AM - Assessment/Plan Last 24 Hours: My Active Orders 09/24/21 12:47 Blood Culture x2 Reflex Set [OM.PC] Urgent 09/24/21 13:05 CULTURE BLOOD [BC] Urgent 09/24/21 13:13 Sodium Chloride 0.9% [Saline Flush] 10 ml FLUSH ASDIRECTED PRN Saline Lock Insert [OM.PC] Routine 09/24/21 13:15 CULTURE BLOOD [BC] Urgent 09/24/21 14:30 VANCOmycin 1 GM/200 ML 1 gm Premix Bag 1 bag IV Q12H cefTRIAXone [Rocephin] 1 gm IVPUSH Q24H 09/24/21 15:40 Patient Status [ADT] Routine Blood Glucose Check, Bedside [RC] BIDMEALS Oxygen Therapy [RC] PRN Up With Assistance [RC] ASDIRECTED VTE/DVT Education [RC] Per Unit Routine Vital Signs [RC] Q4H Acetaminophen/oxyCODONE [Percocet 325-5 MG] 2 tab PO Q4H PRN Morphine 2 mg IVPUSH Q2H PRN Ondansetron [Zofran] 4 mg IV Q4H PRN Resuscitation Status Routine 09/24/21 Dinner Heart Healthy Diet [DIET] 09/24/21 17:00 Sulfamethoxazole/Trimethoprim [Septra DS] 1 tab PO BID 09/25/21 05:11 BASIC METABOLIC PANEL,BMP [CHEM] AM CBC WITH AUTO DIFF [HEME] AM
[2021-09-24] MEDS ORDERED: Ondansetron 4 MG/2 ML SDV IV PRN (15:40)
[2021-09-24] MEDS ORDERED: Morphine 2 MG/ML SYRINGE IVPUSH PRN (15:40)
[2021-09-24] MEDS ORDERED: Acetaminophen/oxyCODONE 325-5 MG Tab PO PRN (15:40)
[2021-09-24] MEDS ORDERED: VANCOmycin 1 GM/200 ML 1 GM in Premix Bag 1 BAG IV SCH (15:45)
[2021-09-24] MEDS ORDERED: Ketorolac 30 MG/ML SDV IVPUSH STA (16:02)
[2021-09-24] MEDS ORDERED: Polyethylene Glycol 3350 Powder 17 GM Packet PO PRN (17:17)
[2021-09-24] MEDS ORDERED: Acetaminophen 325 MG Tab PO PRN (17:17)
[2021-09-24] MEDS ORDERED: hydrOXYzine HCl 25 MG Tab PO PRN (17:17)
[2021-09-24] MEDS ORDERED: Albuterol 8 GM Inhaler INH PRN (17:17)
[2021-09-24] MEDS ORDERED: TESTOSTERONE CYPIONATE IM SCH (18:00)
[2021-09-24] MEDS: Sulfamethoxazole/Trimethoprim 800-160 MG Tab PO SCH (18:24)
[2021-09-24] MEDS: Rivaroxaban 10 MG Tab PO SCH (20:31)
[2021-09-24] MEDS: Gabapentin 300 MG Cap PO SCH (20:31)
[2021-09-24] MEDS: Vitamin B Complex with Vitamin C Tab PO SCH (20:31)
[2021-09-24] MEDS: Calcium Carbonate 500 MG Tablet PO SCH (20:31)
[2021-09-24] MEDS: Pantoprazole 20 MG Tab, Delayed Release PO SCH (20:31)
[2021-09-24] MEDS: INSULIN DETEMIR SUBCUT SCH (20:32)
[2021-09-24] MEDS ORDERED: Insulin Glargine,Human Rec. Analog 100 Units/ML 3 ML Pen SUBCUT SCH (21:00)
[2021-09-24] MEDS ORDERED: Formoterol/Mometasone 200-5 MCG 8.8 GM Inhaler IH SCH (21:00)
[2021-09-24] MEDS ORDERED: Beta-Carotene (Vitamin A) w/Vitamin C & E plus Minerals Tab PO SCH (21:00)
[2021-09-25] MEDS: VANCOmycin 1 GM/200 ML 1 GM in Premix Bag 1 BAG IV SCH (02:28)
[2021-09-25] MEDS: Sodium Chloride 0.9% 10 ML Syringe FLUSH PRN ×3 (03:35→13:25)
[2021-09-25] MEDS: Pantoprazole 20 MG Tab, Delayed Release PO SCH ×2 (06:33→21:12)
[2021-09-25] MEDS ORDERED: Polyvinyl Alcohol 1.4% Ophth Soln 15 ML Bottle EYEBOTH PRN (07:16)
[2021-09-25] MEDS: Furosemide 80 MG Tab PO SCH (08:30)
[2021-09-25] MEDS: Tamsulosin 0.4 MG Cap.ER PO SCH (08:31)
[2021-09-25] MEDS: Formoterol/Mometasone 200-5 MCG 8.8 GM Inhaler IH SCH ×2 (08:31→21:07)
[2021-09-25] MEDS: CERAMIDES TP SCH (08:31)
[2021-09-25] MEDS: Calcium Carbonate 500 MG Tablet PO SCH ×2 (08:32→21:11)
[2021-09-25] MEDS: Cholecalciferol (Vitamin D3) 25 MCG Tab PO SCH (08:32)
[2021-09-25] MEDS: Vitamin B Complex with Vitamin C Tab PO SCH ×2 (08:32→21:09)
[2021-09-25] MEDS: Finasteride 5 MG Tab PO SCH (08:32)
[2021-09-25] MEDS: Lutein/Minerals/Vitamin C/Vitamin E Acetate Cap PO SCH ×2 (08:32→21:08)
[2021-09-25] MEDS: Multivitamins with Iron/Calcium/Folic Acid/Minerals Tab PO SCH (08:32)
[2021-09-25] MEDS: Silver Sulfadiazine 1% Crm 50 GM Tube TOP SCH (08:33)
[2021-09-25] MEDS: Gabapentin 300 MG Cap PO SCH ×3 (08:41→21:08)
[2021-09-25] MEDS: Sulfamethoxazole/Trimethoprim 800-160 MG Tab PO SCH (08:41)
--- NOTE | 2021-09-25 08:42 | PCM.HP.2 ---
H&P History of Present Illness - General Date of Service: 09/25/21 Admit Problem/Dx: Admission Diagnosis/Problem Admission Diagnosis/Problem Cellulitis Source of Information: Patient, Old Records History Limitations: Reports: No Limitations - History of Present Illness Initial Comments - Free Text/Narative: Is a 71-year-old male patient with lots of chronic medical problems including diabetes and recurrent cellulitis in the legs. He says for the last 7 days been having left foot pain and then he says it and worsening coordination and not feeling well. [facility] saw many she told him to go to the ER per ambulance and he was seen. Patient states he has had increased cough and shortness of breath and wheezing. He does have COPD. He was found to have according to the ER doc of pneumonia and a cellulitis in the left lower leg was admitted. He has had some fevers and chills and body aches. Feeling very fatigued. Says he has ulcers in the left lower leg and little bit on the right lower leg also. [facility] and has been wrapping them with Coban to keep the swelling down. And that has been going on since March. Left Foot Pain Score (Numeric/FACES): 4 - Related Data Allergies/Adverse Reactions: Allergies Allergy/AdvReac Type Severity Reaction Status Date / Time ampicillin Allergy Cannot Verified 09/24/21 15:44 Remember clindamycin Allergy Cannot Verified 09/24/21 15:44 Remember codeine Allergy Cannot Verified 09/24/21 15:44 Remember imipramine HCl Allergy Cannot Verified 09/24/21 15:44 [From Tofranil] Remember insulin glargine Allergy Drowsiness Verified 09/24/21 15:44 [From Lantus U-100 Insulin] lithium [Perla] Allergy Cannot Verified 09/24/21 15:44 Remember metformin Allergy Hives Verified 09/24/21 15:44 naproxen Allergy Rash Verified 09/24/21 17:19 Penicillins Allergy Swelling Verified 09/24/21 15:44 prednisone Allergy Other Verified 09/24/21 15:44 quetiapine fumarate Allergy Cannot Verified 09/24/21 15:44 [From Seroquel] Remember tramadol Allergy Cannot Verified 09/24/21 15:44 Remember Home Medications: Home Meds Albuterol Sulfate [Albuterol Sulfate HFA] 2 puff INH Q4H PRN 06/11/14 [History] Finasteride [Proscar] 5 mg PO DAILY 06/11/14 [History] Furosemide [Lasix] 80 mg PO DAILY@0800 06/11/14 [History] Multivitamin with Minerals [Dre-T-Dabr-Minerals] 1 tab PO DAILY 06/11/14 [History] Tamsulosin [Flomax] 0.4 mg PO DAILY 06/11/14 [History] Testosterone Cypionate [Depo-Testosterone] 50 mg IM TU 06/11/14 [History] Alogliptin Benzoate [Alogliptin] 25 mg PO DAILY 12/22/20 [History] Calcium Carbonate [Calcium] 600 mg PO BID 12/22/20 [History] Furosemide [Lasix] 40 mg PO DAILY@1200 12/22/20 [History] Gabapentin [Neurontin] 300 mg PO TID 12/22/20 [History] Omeprazole 20 mg PO BID 12/22/20 [History] Rivaroxaban [Xarelto] 10 mg PO BEDTIME 12/22/20 [History] Vit C/E/Zn/Coppr/Lutein/Zeaxan [Preservision Areds 2 Softgel] 1 each PO BID 12/22/20 [History] Budesonide/Formoterol [Symbicort 160-4.5 MCG] 2 puff IH BID 02/15/21 [History] Ceramide 1,3,6-II/Salicylic/B3 [Cerave SA Cream] 1 applic TOP DAILY 02/15/21 [ History] Cholecalciferol (Vitamin D3) [Vitamin D3] 50 mcg PO DAILY 02/15/21 [History] Dextran 70/Hypromellose [Artificial Tears] 1 drop EYEBOTH QID PRN 02/15/21 [History] Sennosides/Docusate Sodium [Senna-S] 2 tab PO BID PRN 02/15/21 [History] Vitamin B Complex 1 tab PO BID 02/15/21 [History] hydrOXYzine HCL [hydrOXYzine] 25 mg PO TID PRN 02/15/21 [History] polyethylene glycoL 3350 [MiraLAX] 17 gm PO DAILY PRN 02/15/21 [History] Acetaminophen [Tylenol] 650 mg PO Q6H PRN tablet 04/03/21 [Rx] Insulin Detemir [Levemir Flextouch] 12 units SUBCUT BEDTIME #0 04/03/21 [Rx] Silver Sulfadiazine [Silvadene 1% Cream 50 GM] 5 gm TOP DAILY #50 g 04/03/21 [Rx] Insulin Detemir [Levemir Flextouch] 15 unit SQ BEDTIME 09/24/21 [History] Past Medical History - Past Health History Medical/Surgical History: Denies Medical/Surgical History HEENT History: Reports: Other (See Below) Other 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 Cardiovascular History: Reports: Blood Clots/VTE/DVT, Hypertension Respiratory History: Reports: Asthma, COPD, Sleep Apnea Other Respiratory History: CPAP at home, although states he does not use. Gastrointestinal History: Reports: Chronic Constipation, GERD Genitourinary History: Reports: Other (See Below) Other Genitourinary History: Stress incontinence Musculoskeletal History: Reports: Arthritis Neurological History: Reports: Concussion, Migraines, Neuropathy, Diabetic Psychiatric History: Reports: Addiction, Depression, Psych Hospitalization(s), PTSD, Suicide Attempt Other Psychiatric History: hx ETOH abuse Endocrine/Metabolic History: Reports: Diabetes, Type II, Obesity/BMI 30+ Insulin Pump Model and Creative Intern: no Hematologic History: Reports: Anemia, Blood Transfusion(s) Oncologic (Cancer) History: Reports: Lymphoma Dermatologic History: Reports: Cellulitis, Venous Stasis Dermatitis - Infectious Disease History Infectious Disease History: Reports: Mumps - Past Surgical History Head Surgeries/Procedures: Reports: None HEENT Surgical History: Reports: Cataract Surgery, Laser Surgery Other HEENT Surgeries/Procedures: bilat cataract surg, bilat laser surg GI Surgical History: Reports: Colonoscopy, Hernia Repair/Other Musculoskeletal Surgical History: Reports: Hip Replacement Other Musculoskeletal Surgeries/Procedures:: R hip replacement x 3 Social & Family History - Family History Family Medical History: No Pertinent Family History - Tobacco Use Tobacco Use Status *Q: Never Tobacco User Second Hand Smoke Exposure: No - Caffeine Use Caffeine Use: Reports: Coffee, Tea - Recreational Drug Use Recreational Drug Use: No - Living Situation & Occupation Occupation: Retired H&P Review of Systems - Review of Systems: Review Of Systems: See Below General: Reports: Fever, Chills, Weakness HEENT: Reports: No Symptoms Pulmonary: Reports: Shortness of Breath, Wheezing, Cough, Sputum Cardiovascular: Reports: No Symptoms Gastrointestinal: Reports: Constipation Genitourinary: Reports: No Symptoms Musculoskeletal: Reports: No Symptoms Skin: Reports: Rash, Change in Color Psychiatric: Reports: No Symptoms Neurological: Reports: No Symptoms Hematologic/Lymphatic: Reports: No Symptoms Immunologic: Reports: No Symptoms Exam - Exam Exam: See Below - Vital Signs Vital Signs: Last Vital Signs Temp 98.7 F 09/25/21 06:00 Pulse 96 09/25/21 02:32 Resp 20 09/25/21 02:32 BP 132/66 09/25/21 02:32 Pulse Ox 92 L 09/25/21 02:32 Weight: 282 lb 11.2 oz - Exam General: Alert, Oriented, Cooperative HEENT: PERRLA, Posterior Pharynx Clear, TMs Clear Neck: Supple, Trachea Midline Lungs: Clear to Auscultation, Normal Respiratory Effort, Decreased Breath Sounds. No: Crackles, Rales, Rhonchi Cardiovascular: Regular Rate, Regular Rhythm. No: Systolic Murmur GI/Abdominal Exam: Normal Bowel Sounds, Soft, Non-Tender Extremities: Pedal Edema Skin: Other (Left lower extremity has open ulcer the superficial with little drainage on the medial side. Some swelling in the leg. Right leg has a little ulcer that is scabbed over medial side with some discoloration but no real erythema.) Neurological: Normal Speech, Normal Tone Neuro Extensive - Mental Status: Alert, Oriented x3, Normal Mood/Affect, Normal Cognition, Memory Intact Psychiatric: Alert, Normal Affect, Normal Mood - Patient Data Lab Results Last 24 hrs: Laboratory Results - last 24 hr 09/24/21 09/24/21 09/24/21 Range/Units 13:05 13:05 13:05 WBC 9.5 (3.2-10.1) x10-3/uL RBC 5.78 (3.90-5.90) x10(6)uL Hgb 14.0 (12.9-17.7) g/dL Hct 44.1 (38.3-50.1) % MCV 76.3 L (80.8-98.7) fL MCH 24.2 L (27.0-33.3) pg MCHC 31.8 (28.7-35.3) g/dL RDW 15.9 H (12.4-15.0) % Plt Count 147 (117-477) x10(3)uL MPV 7.0 (6.7-11.0) fL Neut % (Auto) 82.6 H (40.3-71.8) % Lymph % (Auto) 7.7 L (15.8-45.3) % [place] % (Auto) 9.4 (5.5-15.2) % Eos % (Auto) 0.0 L (0.1-6.8) % Baso % (Auto) 0.3 (0.3-3.8) % Neut # (Auto) 7.8 H (1.7-6.9) x10-3/uL Lymph # (Auto) 0.7 (0.5-4.5) x10-3/uL [place] # (Auto) 0.9 (0.0-1.2) x10-3/uL Eos # (Auto) 0.0 (0.0-0.6) x10-3/uL Baso # (Auto) 0.0 (0.0-0.3) x10-3/uL Sodium 138 (135-145) mmol/L Potassium 3.6 (3.5-5.3) mmol/L Chloride 101 (100-110) mmol/L Carbon Dioxide 33 H (21-32) mmol/L BUN 15 (7-18) mg/dL Creatinine 1.3 (0.70-1.30) mg/dL Est Cr Clr Drug Dosing TNP Estimated GFR (MDRD) 54 L (>60) BUN/Creatinine Ratio 11.5 (9-20) Glucose 147 H (80-116) mg/dL POC Glucose (80-116) mg/dL Lactic Acid (0.4-2.0) mmol/L Calcium 8.8 (8.6-10.2) mg/dL Total Bilirubin 0.6 (0.1-1.3) mg/dL AST 30 H D (5-25) IU/L ALT 33 D (12-36) U/L Alkaline Phosphatase 97 (56-112) IU/L Troponin I 29.0 (4.0-60.3) pg/mL C-Reactive Protein (0.5-0.9) mg/dL NT-Pro-B Natriuret Pep 673 H (<=125) pg/mL Total Protein 6.8 (6.0-8.0) g/dL Albumin 3.0 L (3.2-4.6) g/dL Globulin 3.8 g/dL Albumin/Globulin Ratio 0.8 SARS-CoV-2 RNA (OPAL) (NEGATIVE) 09/24/21 09/24/21 09/24/21 Range/Units 13:05 13:15 13:49 WBC (3.2-10.1) x10-3/uL RBC (3.90-5.90) x10(6)uL Hgb (12.9-17.7) g/dL Hct (38.3-50.1) % MCV (80.8-98.7) fL MCH (27.0-33.3) pg MCHC (28.7-35.3) g/dL RDW (12.4-15.0) % Plt Count (117-477) x10(3)uL MPV (6.7-11.0) fL Neut % (Auto) (40.3-71.8) % Lymph % (Auto) (15.8-45.3) % [place] % (Auto) (5.5-15.2) % Eos % (Auto) (0.1-6.8) % Baso % (Auto) (0.3-3.8) % Neut # (Auto) (1.7-6.9) x10-3/uL Lymph # (Auto) (0.5-4.5) x10-3/uL [place] # (Auto) (0.0-1.2) x10-3/uL Eos # (Auto) (0.0-0.6) x10-3/uL Baso # (Auto) (0.0-0.3) x10-3/uL Sodium (135-145) mmol/L Potassium (3.5-5.3) mmol/L Chloride (100-110) mmol/L Carbon Dioxide (21-32) mmol/L BUN (7-18) mg/dL Creatinine (0.70-1.30) mg/dL Est Cr Clr Drug Dosing Estimated GFR (MDRD) (>60) BUN/Creatinine Ratio (9-20) Glucose (80-116) mg/dL POC Glucose (80-116) mg/dL Lactic Acid 1.1 (0.4-2.0) mmol/L Calcium (8.6-10.2) mg/dL Total Bilirubin (0.1-1.3) mg/dL AST (5-25) IU/L ALT (12-36) U/L Alkaline Phosphatase (56-112) IU/L Troponin I (4.0-60.3) pg/mL C-Reactive Protein 24.0 H* (0.5-0.9) mg/dL NT-Pro-B Natriuret Pep (<=125) pg/mL Total Protein (6.0-8.0) g/dL Albumin (3.2-4.6) g/dL Globulin g/dL Albumin/Globulin Ratio SARS-CoV-2 RNA (OPAL) Negative (NEGATIVE) 09/24/21 09/25/21 09/25/21 Range/Units 18:17 06:15 06:20 WBC 7.2 (3.2-10.1) x10-3/uL RBC 5.31 (3.90-5.90) x10(6)uL Hgb 12.9 (12.9-17.7) g/dL Hct 41.3 (38.3-50.1) % MCV 77.7 L (80.8-98.7) fL MCH 24.3 L (27.0-33.3) pg MCHC 31.3 (28.7-35.3) g/dL RDW 15.9 H (12.4-15.0) % Plt Count 145 (117-477) x10(3)uL MPV 6.8 (6.7-11.0) fL Neut % (Auto) 74.7 H (40.3-71.8) % Lymph % (Auto) 11.1 L (15.8-45.3) % [place] % (Auto) 12.9 (5.5-15.2) % Eos % (Auto) 1.0 (0.1-6.8) % Baso % (Auto) 0.3 (0.3-3.8) % Neut # (Auto) 5.4 (1.7-6.9) x10-3/uL Lymph # (Auto) 0.8 (0.5-4.5) x10-3/uL [place] # (Auto) 0.9 (0.0-1.2) x10-3/uL Eos # (Auto) 0.1 (0.0-0.6) x10-3/uL Baso # (Auto) 0.0 (0.0-0.3) x10-3/uL Sodium 138 (135-145) mmol/L Potassium 3.5 (3.5-5.3) mmol/L Chloride 100 (100-110) mmol/L Carbon Dioxide 34 H (21-32) mmol/L BUN 17 (7-18) mg/dL Creatinine 1.3 (0.70-1.30) mg/dL Est Cr Clr Drug Dosing 56.38 Estimated GFR (MDRD) 54 L (>60) BUN/Creatinine Ratio 13.1 (9-20) Glucose 124 H (80-116) mg/dL POC Glucose 128 H (80-116) mg/dL Lactic Acid (0.4-2.0) mmol/L Calcium 8.6 (8.6-10.2) mg/dL Total Bilirubin (0.1-1.3) mg/dL AST (5-25) IU/L ALT (12-36) U/L Alkaline Phosphatase (56-112) IU/L Troponin I (4.0-60.3) pg/mL C-Reactive Protein (0.5-0.9) mg/dL NT-Pro-B Natriuret Pep (<=125) pg/mL Total Protein (6.0-8.0) g/dL Albumin (3.2-4.6) g/dL Globulin g/dL Albumin/Globulin Ratio SARS-CoV-2 RNA (OPAL) (NEGATIVE) Result Diagrams: 09/25/21 06:15 09/25/21 06:20 Sepsis Event Note - Evaluation Sepsis Screening Result: No Definite Risk - Focused Exam Vital Signs: Vital Signs Temp Temp Pulse Resp BP Pulse Ox 09/25/21 06:00 98.7 F 09/25/21 03:35 101.5 F H 101.5 F H 09/25/21 02:37 102.7 F H 09/25/21 02:32 102.7 F H 96 20 132/66 92 L 09/24/21 20:48 98.3 F 84 18 103/54 L 94 L - Problem List (1) Lesion of lung SNOMED Code(s): 596615601 ICD Code: R91.1 - SOLITARY PULMONARY NODULE Status: Acute Current Visit: Yes (2) Bronchitis SNOMED Code(s): 57677001 ICD Code: J40 - BRONCHITIS, NOT SPECIFIED ACUTE OR CHRONIC Status: Acute Current Visit: No Problem Details: See orders, instructions and plans, please. (3) Cellulitis of left lower extremity SNOMED Code(s): 796238837 ICD Code: L03.116 - CELLULITIS OF LEFT LOWER LIMB Status: Acute Current Visit: No (4) Elevated C-reactive protein (CRP) SNOMED Code(s): 627348920490908 ICD Code: R79.82 - ELEVATED C-REACTIVE PROTEIN (CRP) Status: Acute Current Visit: No (5) History of MRSA infection SNOMED Code(s): 808371341, 222238142 ICD Code: Z86.14 - PERSONAL HISTORY OF METHICILLIN RESIS STAPH INFECTION Status: Acute Current Visit: No (6) Palliative care status SNOMED Code(s): 938069467 ICD Code: Z51.5 - ENCOUNTER FOR PALLIATIVE CARE Status: Acute Current Visit: No (7) Venous stasis dermatitis of both lower extremities SNOMED Code(s): 24341844 ICD Code: I87.2 - VENOUS INSUFFICIENCY (CHRONIC) (PERIPHERAL) Status: Acute Current Visit: No Problem List Initiated/Reviewed/Updated: Yes Orders Last 24hrs: Active Orders 24 hr Category Date Time Status Patient Status [ADT] Routine ADT 09/24/21 15:40 Active Blood Glucose Check, Bedside [RC] BIDMEALS Care 09/24/21 15:40 Active Oxygen Therapy [RC] PRN Care 09/24/21 15:40 Active RT Post Treatment Assessment [RC] Click to Edit Care 09/24/21 17:19 Active Up With Assistance [RC] ASDIRECTED Care 09/24/21 15:40 Active Vital Signs [RC] 00,04,08,12,16,20 Care 09/24/21 15:40 Active Consistent Carbohydrate Diet [DIET] Diet 09/25/21 Lunch Active CULTURE BLOOD [BC] Urgent Lab 09/24/21 13:05 Received CULTURE BLOOD [BC] Urgent Lab 09/24/21 13:15 Received Acetaminophen [TylenoL] Med 09/24/21 17:17 Active 650 mg PO Q6H PRN Acetaminophen/oxyCODONE [Percocet 325-5 MG] Med 09/25/21 08:33 Ordered 1 tab PO Q4H PRN Albuterol [Ventolin HFA] Med 09/24/21 17:17 Active 0 gm INH Q4H PRN Alogliptin Benzoate [Alogliptin] Med 09/25/21 09:00 Pending 25 mg PO DAILY Calcium Carbonate [Oyster Shell Calcium] Med 09/24/21 21:00 Active 500 mg PO BID Ceramides 1,3,6-11 [Cerave] Med 09/25/21 09:00 Active 0 gm TP DAILY Cholecalciferol (Vitamin D3) [Vitamin D3] Med 09/25/21 09:00 Active 50 mcg PO DAILY Docusate Sodium/Sennosides [Senna Plus] Med 09/24/21 17:17 Active 2 tab PO BID PRN Finasteride [Proscar] Med 09/25/21 09:00 Active 5 mg PO DAILY Furosemide [Lasix] Med 09/25/21 12:00 Active 40 mg PO DAILY@1200 Furosemide [Lasix] Med 09/25/21 08:00 Active 80 mg PO DAILY@0800 Gabapentin [Neurontin] Med 09/24/21 21:00 Active 300 mg PO TID Insulin Detemir [Levemir Flextouch] Med 09/25/21 21:00 Ordered 15 unit SQ BEDTIME Lutein/Min/Vit C/Vit E Acetate [Ocuvite Lutein] Med 09/25/21 09:00 Active 1 each PO BID Mometasone/Formoterol [Dulera 200-5 MCG] Med 09/25/21 06:56 Active 0 puff IH BID Morphine Med 09/24/21 15:40 Active 2 mg IVPUSH Q2H PRN Multivitamins w-Iron/Ca/FA/Min [Thera M Plus] Med 09/25/21 09:00 Active 1 tab PO DAILY Ondansetron [Zofran] Med 09/24/21 15:40 Active 4 mg IV Q4H PRN Pantoprazole Med 09/24/21 21:00 Active 20 mg PO BID@0730,2100 Patient's Own Medication [Ptom] Med 09/24/21 21:00 Active 0 each SUBCUT BEDTIME Polyvinyl Alcohol [LiquiTears 1.4% Oph Soln] Med 09/25/21 07:16 Active 0 ml EYEBOTH QID PRN Rivaroxaban [Xarelto] Med 09/24/21 21:00 Active 10 mg PO BEDTIME Silver Sulfadiazine [Silvadene 1% Cream 50 GM] Med 09/25/21 09:00 Active 0 gm TOP DAILY Sodium Chloride 0.9% [Saline Flush] Med 09/24/21 13:13 Active 10 ml FLUSH ASDIRECTED PRN Sulfamethoxazole/Trimethoprim [Septra DS] Med 09/24/21 17:00 Active 1 tab PO BID Tamsulosin [Flomax] Med 09/25/21 09:00 Active 0.4 mg PO DAILY VANCOmycin 1 GM/200 ML 1 gm Med 09/24/21 14:30 Active Premix Bag 1 bag IV Q12H Vitamin B Complex with C [Total B With C] Med 09/24/21 21:00 Active 1 each PO BID cefTRIAXone [Rocephin] Med 09/24/21 14:30 Active 1 gm IVPUSH Q24H hydrOXYzine HCL [Atarax] Med 09/24/21 17:17 Active 25 mg PO TID PRN polyethylene glycoL 3350 [MiraLAX] Med 09/24/21 17:17 Active 17 gm PO DAILY PRN Blood Culture x2 Reflex Set [OM.PC] Urgent Oth 09/24/21 12:47 Ordered Saline Lock Insert [OM.PC] Routine Oth 09/24/21 13:13 Ordered Resuscitation Status Routine Resus Stat 09/24/21 15:40 Ordered EKG 12 Lead [EK] Routine Ther 09/24/21 16:49 Ordered Medication Orders Acetaminophen (Acetaminophen 325 Mg Tab) 650 mg PO Q6H PRN PRN Reason: Pain Last Admin: 09/25/21 02:37 Dose: 650 mg Documented by: JACQUIE Albuterol (Albuterol 8 Gm Inhaler) 0 gm INH Q4H PRN PRN Reason: Shortness of Breath Artificial Tears (Polyvinyl Alcohol 1.4% Ophth Soln 15 Ml Bottle) 0 ml EYEBOTH QID PRN PRN Reason: DRY EYES Calcium Carbonate/Glycine (Calcium Carbonate 500 Mg Tablet) 500 mg PO BID CARO Last Admin: 09/25/21 08:32 Dose: 500 mg Documented by: Admin: 09/24/21 20:31 Dose: 500 mg Documented by: JACQUIE Ceftriaxone Sodium (Ceftriaxone 1 Gm Vial) 1 gm IVPUSH Q24H [facility] Last Admin: 09/24/21 14:32 Dose: 1 gm Documented by: OTILIA Cholecalciferol (Cholecalciferol (Vitamin D3) 25 Mcg Tab) 50 mcg PO DAILY [facility] Last Admin: 09/25/21 08:32 Dose: 50 mcg Documented by: ZACKERY Finasteride (Finasteride 5 Mg Tab) 5 mg PO DAILY [facility] Last Admin: 09/25/21 08:32 Dose: 5 mg Documented by: ZACKERY Furosemide (Furosemide 40 Mg Tab) 40 mg PO DAILY@1200 [facility] Furosemide (Furosemide 80 Mg Tab) 80 mg PO DAILY@0800 [facility] Last Admin: 09/25/21 08:30 Dose: 80 mg Documented by: ZACKERY Gabapentin (Gabapentin 300 Mg Cap) 300 mg PO TID [facility] Last Admin: 09/24/21 20:31 Dose: 300 mg Documented by: JACQUIE Hydroxyzine HCl (Hydroxyzine Hcl 25 Mg Tab) 25 mg PO TID PRN PRN Reason: Itching Vancomycin HCl 1 gm/ Premix 200 mls @ 200 mls/hr IV Q12H [facility] Last Admin: 09/25/21 02:28 Dose: 200 mls/hr Documented by: Admin: 09/24/21 14:32 Dose: 200 mls/hr Documented by: OTILIA Miscellaneous Medication (Ceramides 1,3,6-11 340 Gm Cream) 0 gm TP DAILY [facility] Last Admin: 09/25/21 08:31 Dose: 1 applic Documented by: ZACKERY Mometasone Furoate/Formoterol Fumar (Formoterol/Mometasone 200-5 Mcg 8.8 Gm Inhaler) 0 puff IH BID [facility] Last Admin: 09/25/21 08:31 Dose: 2 puff Documented by: ZACKERY Morphine Sulfate (Morphine 2 Mg/Ml Syringe) 2 mg IVPUSH Q2H PRN PRN Reason: Pain (severe 7-10) Multivitamins (Vitamin B Complex With Vitamin C Tab) 1 each PO BID [facility] Last Admin: 09/25/21 08:32 Dose: 1 each Documented by: Admin: 09/24/21 20:31 Dose: 1 each Documented by: JACQUEI Multivitamins/Minerals (Multivitamins With Iron/Calcium/Folic Acid/Minerals Tab) 1 tab PO DAILY [facility] Last Admin: 09/25/21 08:32 Dose: 1 tab Documented by: ZACKERY Non-Formulary Medication (Alogliptin Benzoate [Alogliptin]) 25 mg PO DAILY [facility] Non-Formulary Medication (Insulin Detemir [Levemir Flextouch]) 15 unit SQ [facility] Ondansetron HCl (Ondansetron 4 Mg/2 Ml Sdv) 4 mg IV Q4H PRN PRN Reason: Nausea/Vomiting Oxycodone/Acetaminophen (Acetaminophen/Oxycodone 325-5 Mg Tab) 1 tab PO Q4H PRN PRN Reason: Pain (moderate 4-6) Pantoprazole Sodium (Pantoprazole 20 Mg Tab, Delayed Release) 20 mg PO BID@0730,2100 [facility] Last Admin: 09/25/21 06:33 Dose: 20 mg Documented by: Admin: 09/24/21 20:31 Dose: 20 mg Documented by: JACQUIE Insulin Detemir Pen (*Pt Own Med*) 0 each SUBCUT BEDTIME [facility] Last Admin: 09/24/21 20:32 Dose: 15 each Documented by: JACQUIE Polyethylene Glycol (Polyethylene Glycol 3350 Powder 17 Gm Packet) 17 gm PO DAILY PRN PRN Reason: Constipation Rivaroxaban (Rivaroxaban 10 Mg Tab) 10 mg PO BEDTIME [facility] Last Admin: 09/24/21 20:31 Dose: 10 mg Documented by: JACQUIE Senna/Docusate Sodium (Docusate Sodium/Sennosides 50-8.6 Mg Tab) 2 tab PO BID PRN PRN Reason: Constipation Silver Sulfadiazine (Silver Sulfadiazine 1% Crm 50 Gm Tube) 0 gm TOP DAILY [facility] Last Admin: 09/25/21 08:33 Dose: 1 applic Documented by: ZACKERY Sodium Chloride (Sodium Chloride 0.9% 10 Ml Syringe) 10 ml FLUSH ASDIRECTED PRN PRN Reason: Keep Vein Open Last Admin: 09/25/21 03:35 Dose: 10 ml Documented by: JACQUIE Tamsulosin HCl (Tamsulosin 0.4 Mg Cap.Er) 0.4 mg PO DAILY [facility] Last Admin: 09/25/21 08:31 Dose: 0.4 mg Documented by: ZACKERY Trimethoprim/Sulfamethoxazole (Sulfamethoxazole/Trimethoprim 800-160 Mg Tab) 1 tab PO BID [facility] Last Admin: 09/24/21 18:24 Dose: 1 tab Documented by: JACQUIE Vit C/Vit E/Zinc/Copper/Lutein (Lutein/Minerals/Vitamin C/Vitamin E Acetate Cap) 1 each PO BID [facility] Last Admin: 09/25/21 08:32 Dose: 1 each Documented by: ZACKERY Assessment/Plan Comment:: 1. Admit patient. 2. Vancomycin to cover MRSA and Rocephin for possible pneumonia. 3. CT lung to rule out cancer or rule and pneumonia. 4. Rocephin for lung infection. 5. Up with assist. 6. Wrapping the legs regularly. 7. Wound culture left leg. 8. PT/OT. 9. Diabetic diet and check Accu-Cheks twice daily continue his home insulin. 10. Lovenox for VTE prophylaxis. 11. Pharmacy to manage vancomycin. - Mortality Measure Prognosis:: Good
[2021-09-25] MEDS: Acetaminophen/oxyCODONE 325-5 MG Tab PO PRN ×4 (08:57→21:30)
[2021-09-25] MEDS ORDERED: Non-Formulary Medication 1 Each (Alogliptin Benzoate [Alogliptin] 25 MG Tablet) PO SCH (09:00)
[2021-09-25] MEDS ORDERED: Azithromycin 500 MG Tab PO ONE (10:00)
[2021-09-25] MEDS: Furosemide 40 MG Tab PO SCH (11:08)
[2021-09-25] MEDS: VANCOmycin 1.5 GM/300 ML 300 ML IV SCH (13:20)
[2021-09-25] MEDS: cefTRIAXone 1 GM Vial IVPUSH SCH (13:29)
--- NOTE | 2021-09-25 15:08 | CT ---
LIMITED CT OF CHEST WITHOUT CONTRAST INDICATION: Question nodule at left lung base on previous chest x-ray of 09/24/21. TECHNIQUE: Spiral 3.75 mm axial sections were obtained through the lower chest without contrast only and compared with 06/11/14 with axial, sagittal and coronal reconstructions. Total exam DLP was 552.48 mGy/cm. FINDINGS: A definite active infiltrate or effusion was not identified with some minimal fibrotic appearing changes again noted at both lower lobes and the lingula. A nodular density suggested on previous chest x-ray may be present at the epicardial fat pad but is identical to the previous examination and may represent a minimal area of scarring. No evidence of malignancy was seen. IMPRESSION: No evidence of malignancy or nodular mass identified - no acute process with some minimal fibrotic appearing changes. MTDD
[2021-09-25] MEDS: Rivaroxaban 10 MG Tab PO SCH (21:10)
[2021-09-25] MEDS: [UNRECOGNIZED DRUG - OTHER] SQ SCH (21:17)
[2021-09-25] MEDS: INSULIN DETEMIR 100 UNIT/ML SQ SCH (21:17)
[2021-09-25] MEDS: INSULIN DETEMIR SUBCUT SCH (21:22)
[2021-09-26] MEDS: VANCOmycin 1.5 GM/300 ML 300 ML IV SCH ×2 (02:21→14:53)
[2021-09-26] MEDS: Sodium Chloride 0.9% 10 ML Syringe FLUSH PRN (02:23)
[2021-09-26] MEDS: Acetaminophen/oxyCODONE 325-5 MG Tab PO PRN ×5 (02:34→20:14)
[2021-09-26] MEDS: Pantoprazole 20 MG Tab, Delayed Release PO SCH ×2 (06:31→20:13)
--- NOTE | 2021-09-26 08:08 | PCM.PN ---
- General Info Date of Service: 09/26/21 Admission Dx/Problem (Free Text): Patient states he still has pain in his lower legs especially when he walks. He has some coughing and has chest pain when he coughs and some wheezing. This is worse than normal. He has a history of COPD. Cough is nonproductive. He does have some fevers and chills but that is improving. No body aches that are abnormal. - Patient Data Vitals - Most Recent: Last Vital Signs Temp 98.4 F 09/26/21 05:00 Pulse 92 09/26/21 05:00 Resp 20 09/26/21 05:00 BP 123/69 09/26/21 05:00 Pulse Ox 94 L 09/26/21 05:00 Weight - Most Recent: 282 lb 11.2 oz I&O - Last 24 Hours: Intake & Output 09/25/21 09/26/21 09/26/21 22:59 06:59 14:59 Intake Total 300 Balance 300 Lab Results Last 24 Hours: Laboratory Results - last 24 hr 09/25/21 09/26/21 09/26/21 Range/Units 17:38 06:00 06:00 WBC 5.4 (3.2-10.1) x10-3/uL RBC 5.15 (3.90-5.90) x10(6)uL Hgb 12.4 L (12.9-17.7) g/dL Hct 39.7 (38.3-50.1) % MCV 77.1 L (80.8-98.7) fL MCH 24.2 L (27.0-33.3) pg MCHC 31.3 (28.7-35.3) g/dL RDW 16.1 H (12.4-15.0) % Plt Count 151 (117-477) x10(3)uL MPV 7.2 (6.7-11.0) fL Neut % (Auto) 63.9 (40.3-71.8) % Lymph % (Auto) 15.9 (15.8-45.3) % [place] % (Auto) 16.0 H (5.5-15.2) % Eos % (Auto) 3.8 (0.1-6.8) % Baso % (Auto) 0.4 (0.3-3.8) % Neut # (Auto) 3.5 (1.7-6.9) x10-3/uL Lymph # (Auto) 0.9 (0.5-4.5) x10-3/uL [place] # (Auto) 0.9 (0.0-1.2) x10-3/uL Eos # (Auto) 0.2 (0.0-0.6) x10-3/uL Baso # (Auto) 0.0 (0.0-0.3) x10-3/uL Sodium 137 (135-145) mmol/L Potassium 3.4 L (3.5-5.3) mmol/L Chloride 98 L (100-110) mmol/L Carbon Dioxide 34 H (21-32) mmol/L BUN 15 (7-18) mg/dL Creatinine 1.3 (0.70-1.30) mg/dL Est Cr Clr Drug Dosing 56.38 mL/min Estimated GFR (MDRD) 54 L (>60) BUN/Creatinine Ratio 11.5 (9-20) Glucose 152 H (80-116) mg/dL POC Glucose 132 H (80-116) mg/dL Calcium 8.3 L (8.6-10.2) mg/dL Total Bilirubin 0.5 (0.1-1.3) mg/dL AST 54 H D (5-25) IU/L ALT 61 H D (12-36) U/L Alkaline Phosphatase 144 H (56-112) IU/L Total Protein 6.4 (6.0-8.0) g/dL Albumin 2.6 L (3.2-4.6) g/dL Globulin 3.8 g/dL Albumin/Globulin Ratio 0.7 Shai Results Last 24 Hours: Microbiology 09/24/21 13:15 Aerobic Blood Culture - Preliminary Blood - Venous - Lab Draw NO GROWTH AFTER 1 DAY Anaerobic Blood Culture - Preliminary NO GROWTH AFTER 1 DAY 09/24/21 13:05 Aerobic Blood Culture - Preliminary Blood - Venous NO GROWTH AFTER 1 DAY Anaerobic Blood Culture - Preliminary NO GROWTH AFTER 1 DAY Med Orders - Current: Current Medications Acetaminophen (Acetaminophen 325 Mg Tab) 650 mg PO Q6H PRN PRN Reason: Pain Last Admin: 09/25/21 02:37 Dose: 650 mg Documented by: Albuterol (Albuterol 8 Gm Inhaler) 0 gm INH Q4H PRN PRN Reason: Shortness of Breath Artificial Tears (Polyvinyl Alcohol 1.4% Ophth Soln 15 Ml Bottle) 0 ml EYEBOTH QID PRN PRN Reason: DRY EYES Azithromycin (Azithromycin 250 Mg Tab) 250 mg PO DAILY [facility] Stop: 09/29/21 09:01 Calcium Carbonate/Glycine (Calcium Carbonate 500 Mg Tablet) 500 mg PO BID [facility] Last Admin: 09/25/21 21:11 Dose: 500 mg Documented by: Ceftriaxone Sodium (Ceftriaxone 1 Gm Vial) 1 gm IVPUSH Q24H [facility] Last Admin: 09/25/21 13:29 Dose: 1 gm Documented by: Cholecalciferol (Cholecalciferol (Vitamin D3) 25 Mcg Tab) 50 mcg PO DAILY [facility] Last Admin: 09/25/21 08:32 Dose: 50 mcg Documented by: Finasteride (Finasteride 5 Mg Tab) 5 mg PO DAILY [facility] Last Admin: 09/25/21 08:32 Dose: 5 mg Documented by: Furosemide (Furosemide 40 Mg Tab) 40 mg PO DAILY@1200 [facility] Last Admin: 09/25/21 11:08 Dose: 40 mg Documented by: Furosemide (Furosemide 80 Mg Tab) 80 mg PO DAILY@0800 [facility] Last Admin: 09/25/21 08:30 Dose: 80 mg Documented by: Gabapentin (Gabapentin 300 Mg Cap) 300 mg PO TID [facility] Last Admin: 09/25/21 21:08 Dose: 300 mg Documented by: Hydroxyzine HCl (Hydroxyzine Hcl 25 Mg Tab) 25 mg PO TID PRN PRN Reason: Itching Vancomycin HCl (Vancomycin 1.5 Gm/300 Ml) 300 mls @ 200 mls/hr IV Q12H [facility] Last Admin: 09/26/21 02:21 Dose: 200 mls/hr Documented by: Miscellaneous Medication (Ceramides 1,3,6-11 340 Gm Cream) 0 gm TP DAILY [facility] Last Admin: 09/25/21 08:31 Dose: 1 applic Documented by: Mometasone Furoate/Formoterol Fumar (Formoterol/Mometasone 200-5 Mcg 8.8 Gm Inhaler) 0 puff IH BID [facility] Last Admin: 09/25/21 21:07 Dose: 2 puff Documented by: Morphine Sulfate (Morphine 2 Mg/Ml Syringe) 2 mg IVPUSH Q2H PRN PRN Reason: Pain (severe 7-10) Multivitamins (Vitamin B Complex With Vitamin C Tab) 1 each PO BID [facility] Last Admin: 09/25/21 21:09 Dose: 1 each Documented by: Multivitamins/Minerals (Multivitamins With Iron/Calcium/Folic Acid/Minerals Tab) 1 tab PO DAILY [facility] Last Admin: 09/25/21 08:32 Dose: 1 tab Documented by: Non-Formulary Medication (Alogliptin Benzoate [Alogliptin]) 25 mg PO DAILY [facility] Levemir Flextouch] 100 Unit/Ml Insuln. Pen *Ptom 15 unit SQ BEDTIME [facility] Last Admin: 09/25/21 21:17 Dose: 15 unit Documented by: Ondansetron HCl (Ondansetron 4 Mg/2 Ml Sdv) 4 mg IV Q4H PRN PRN Reason: Nausea/Vomiting Oxycodone/Acetaminophen (Acetaminophen/Oxycodone 325-5 Mg Tab) 1 tab PO Q4H PRN PRN Reason: Pain (moderate 4-6) Last Admin: 09/26/21 06:32 Dose: 1 tab Documented by: Pantoprazole Sodium (Pantoprazole 20 Mg Tab, Delayed Release) 20 mg PO BID@0730,2100 [facility] Last Admin: 09/26/21 06:31 Dose: 20 mg Documented by: Polyethylene Glycol (Polyethylene Glycol 3350 Powder 17 Gm Packet) 17 gm PO DAILY PRN PRN Reason: Constipation Rivaroxaban (Rivaroxaban 10 Mg Tab) 10 mg PO BEDTIME [facility] Last Admin: 09/25/21 21:10 Dose: 10 mg Documented by: Senna/Docusate Sodium (Docusate Sodium/Sennosides 50-8.6 Mg Tab) 2 tab PO BID PRN PRN Reason: Constipation Silver Sulfadiazine (Silver Sulfadiazine 1% Crm 50 Gm Tube) 0 gm TOP DAILY [facility] Last Admin: 09/25/21 08:33 Dose: 1 applic Documented by: Sodium Chloride (Sodium Chloride 0.9% 10 Ml Syringe) 10 ml FLUSH ASDIRECTED PRN PRN Reason: Keep Vein Open Last Admin: 09/26/21 02:23 Dose: 10 ml Documented by: Tamsulosin HCl (Tamsulosin 0.4 Mg Cap.Er) 0.4 mg PO DAILY [facility] Last Admin: 09/25/21 08:31 Dose: 0.4 mg Documented by: Vancomycin HCl (Pharmacy To Dose - Vancomycin) 1 dose .XX ASDIRECTED [facility] Vit C/Vit E/Zinc/Copper/Lutein (Lutein/Minerals/Vitamin C/Vitamin E Acetate Cap) 1 each PO BID [facility] Last Admin: 09/25/21 21:08 Dose: 1 each Documented by: Discontinued Medications Azithromycin (Azithromycin 500 Mg Tab) 500 mg PO ONETIME ONE Stop: 09/25/21 10:01 Last Admin: 09/25/21 10:56 Dose: 500 mg Documented by: Vancomycin HCl 1 gm/ Premix 200 mls @ 200 mls/hr IV Q12H [facility] Last Admin: 09/25/21 02:28 Dose: 200 mls/hr Documented by: Insulin Glargine (Insulin Glargine,Human Rec. Analog 100 Units/Ml 3 Ml Pen) 12 units SUBCUT BEDTIME [facility] Ketorolac Tromethamine (Ketorolac 30 Mg/Ml Sdv) 30 mg IVPUSH NOW STA Stop: 09/24/21 16:03 Last Admin: 09/24/21 16:12 Dose: 30 mg Documented by: Mometasone Furoate/Formoterol Fumar (Formoterol/Mometasone 200-5 Mcg 8.8 Gm Inhaler) 2 puff IH BID [facility] Last Admin: 09/24/21 20:32 Dose: 2 puff Documented by: Multivitamins/Minerals (Beta-Carotene (Vitamin A) W/Vitamin C & E Plus Minerals Tab) 1 tab PO BID [facility] Last Admin: 09/24/21 20:31 Dose: 1 tab Documented by: Oxycodone/Acetaminophen (Acetaminophen/Oxycodone 325-5 Mg Tab) 2 tab PO Q4H PRN PRN Reason: Pain (moderate 4-6) Last Admin: 09/24/21 16:13 Dose: 2 tab Documented by: Insulin Detemir Pen (*Pt Own Med*) 0 each SUBCUT BEDTIME [facility] Last Admin: 09/25/21 21:22 Dose: Not Given Documented by: Testosterone Cypionate (Testosterone Cypionate 2,000 Mg/10 Ml Mdv) 50 mg IM Tu@0900 [facility] Last Admin: 09/24/21 18:26 Dose: Not Given Documented by: Trimethoprim/Sulfamethoxazole (Sulfamethoxazole/Trimethoprim 800-160 Mg Tab) 1 tab PO BID [facility] Last Admin: 09/25/21 08:41 Dose: 1 tab Documented by: - Exam General: Alert, Oriented Neck: Supple Lungs: Normal Respiratory Effort, Wheezing (Very mild) Cardiovascular: Regular Rate, Regular Rhythm, No Murmurs Extremities: No Pedal Edema Skin: Other (Left inner ankle has a small scab with some drainage. Right ankle has a large medial area with drainage.) - Patient Data Lab Results Last 24 hrs: Laboratory Results - last 24 hr 09/25/21 09/26/21 09/26/21 Range/Units 17:38 06:00 06:00 WBC 5.4 (3.2-10.1) x10-3/uL RBC 5.15 (3.90-5.90) x10(6)uL Hgb 12.4 L (12.9-17.7) g/dL Hct 39.7 (38.3-50.1) % MCV 77.1 L (80.8-98.7) fL MCH 24.2 L (27.0-33.3) pg MCHC 31.3 (28.7-35.3) g/dL RDW 16.1 H (12.4-15.0) % Plt Count 151 (117-477) x10(3)uL MPV 7.2 (6.7-11.0) fL Neut % (Auto) 63.9 (40.3-71.8) % Lymph % (Auto) 15.9 (15.8-45.3) % [place] % (Auto) 16.0 H (5.5-15.2) % Eos % (Auto) 3.8 (0.1-6.8) % Baso % (Auto) 0.4 (0.3-3.8) % Neut # (Auto) 3.5 (1.7-6.9) x10-3/uL Lymph # (Auto) 0.9 (0.5-4.5) x10-3/uL [place] # (Auto) 0.9 (0.0-1.2) x10-3/uL Eos # (Auto) 0.2 (0.0-0.6) x10-3/uL Baso # (Auto) 0.0 (0.0-0.3) x10-3/uL Sodium 137 (135-145) mmol/L Potassium 3.4 L (3.5-5.3) mmol/L Chloride 98 L (100-110) mmol/L Carbon Dioxide 34 H (21-32) mmol/L BUN 15 (7-18) mg/dL Creatinine 1.3 (0.70-1.30) mg/dL Est Cr Clr Drug Dosing 56.38 mL/min Estimated GFR (MDRD) 54 L (>60) BUN/Creatinine Ratio 11.5 (9-20) Glucose 152 H (80-116) mg/dL POC Glucose 132 H (80-116) mg/dL Calcium 8.3 L (8.6-10.2) mg/dL Total Bilirubin 0.5 (0.1-1.3) mg/dL AST 54 H D (5-25) IU/L ALT 61 H D (12-36) U/L Alkaline Phosphatase 144 H (56-112) IU/L Total Protein 6.4 (6.0-8.0) g/dL Albumin 2.6 L (3.2-4.6) g/dL Globulin 3.8 g/dL Albumin/Globulin Ratio 0.7 Result Diagrams: 09/26/21 06:00 09/26/21 06:00 Shai Results Last 24 hrs: Microbiology 09/24/21 13:15 Aerobic Blood Culture - Preliminary Blood - Venous - Lab Draw NO GROWTH AFTER 1 DAY Anaerobic Blood Culture - Preliminary NO GROWTH AFTER 1 DAY 09/24/21 13:05 Aerobic Blood Culture - Preliminary Blood - Venous NO GROWTH AFTER 1 DAY Anaerobic Blood Culture - Preliminary NO GROWTH AFTER 1 DAY Sepsis Event Note - Evaluation Sepsis Screening Result: No Definite Risk - Focused Exam Vital Signs: Vital Signs Temp Pulse Resp BP Pulse Ox 09/26/21 05:00 98.4 F 92 20 123/69 94 L 09/26/21 00:00 18 - Problem List & Annotations (1) Cellulitis of left lower extremity SNOMED Code(s): 560375965 Code(s): L03.116 - CELLULITIS OF LEFT LOWER LIMB Status: Acute Current Visit: No (2) Elevated C-reactive protein (CRP) SNOMED Code(s): 015340530979216 Code(s): R79.82 - ELEVATED C-REACTIVE PROTEIN (CRP) Status: Acute Current Visit: No (3) History of MRSA infection SNOMED Code(s): 621203499, 885204705 Code(s): Z86.14 - PERSONAL HISTORY OF METHICILLIN RESIS STAPH INFECTION Status: Acute Current Visit: No (4) Palliative care status SNOMED Code(s): 282290495 Code(s): Z51.5 - ENCOUNTER FOR PALLIATIVE CARE Status: Acute Current Visit: No (5) Venous stasis dermatitis of both lower extremities SNOMED Code(s): 30316458 Code(s): I87.2 - VENOUS INSUFFICIENCY (CHRONIC) (PERIPHERAL) Status: Acute Current Visit: No (6) COPD exacerbation SNOMED Code(s): 117345508 Code(s): J44.1 - CHRONIC OBSTRUCTIVE PULMONARY DISEASE W (ACUTE) EXACERBATION Status: Acute Current Visit: Yes - Problem List Review Problem List Initiated/Reviewed/Updated: Yes - My Orders Last 24 Hours: My Active Orders 09/25/21 08:33 Acetaminophen/oxyCODONE [Percocet 325-5 MG] 1 tab PO Q4H PRN 09/25/21 09:45 Pharmacy to Dose - Vancomycin 1 dose .XX ASDIRECTED 09/25/21 09:50 Consult to Occupational Therapy [OT Evaluation and Treatment] [CONS] Routine Consult to Physical Therapy [PT Evaluation and Treatment] [CONS] Routine 09/25/21 Lunch Consistent Carbohydrate Diet [DIET] 09/25/21 10:52 CULTURE ROUTINE + SMEAR [RM] Routine 09/25/21 14:00 VANCOmycin 1.5 GM/300 ML 300 ml IV Q12H 09/25/21 21:00 Insulin Detemir [Levemir Flextouch] 15 unit SQ BEDTIME 09/27/21 01:30 VANCOMYCIN TROUGH [CHEM] Routine 09/27/21 08:00 predniSONE 20 mg PO WITHBREAKFAST - Plan Plan:: 1. The patient was wondering about his inhaler. He had a substitution for his Symbicort. This was relayed to him. 2. Prednisone 20 mg a day for 5 days for COPD 3. Stop the Zithromax since he has no pneumonia. CT scan did not show pne umonia or any cancer. 4. Continue Vanco and Rocephin.
[2021-09-26] MEDS: predniSONE 20 MG Tab PO SCH (08:34)
[2021-09-26] MEDS: Gabapentin 300 MG Cap PO SCH ×3 (08:34→20:14)
[2021-09-26] MEDS: Formoterol/Mometasone 200-5 MCG 8.8 GM Inhaler IH SCH ×2 (08:34→20:13)
[2021-09-26] MEDS: Furosemide 80 MG Tab PO SCH (08:35)
[2021-09-26] MEDS: CERAMIDES TP SCH (08:35)
[2021-09-26] MEDS: Calcium Carbonate 500 MG Tablet PO SCH ×2 (08:36→20:14)
[2021-09-26] MEDS: Multivitamins with Iron/Calcium/Folic Acid/Minerals Tab PO SCH (08:36)
[2021-09-26] MEDS: Tamsulosin 0.4 MG Cap.ER PO SCH (08:36)
[2021-09-26] MEDS: Silver Sulfadiazine 1% Crm 50 GM Tube TOP SCH (08:36)
[2021-09-26] MEDS: Cholecalciferol (Vitamin D3) 25 MCG Tab PO SCH (08:37)
[2021-09-26] MEDS: Vitamin B Complex with Vitamin C Tab PO SCH ×2 (08:37→20:13)
[2021-09-26] MEDS: Lutein/Minerals/Vitamin C/Vitamin E Acetate Cap PO SCH ×2 (08:37→20:13)
[2021-09-26] MEDS: Finasteride 5 MG Tab PO SCH (08:37)
[2021-09-26] MEDS ORDERED: Azithromycin 250 MG Tab PO SCH (09:00)
[2021-09-26] MEDS: Furosemide 40 MG Tab PO SCH (11:51)
[2021-09-26] MEDS: cefTRIAXone 1 GM Vial IVPUSH SCH (14:55)
[2021-09-26] MEDS: Rivaroxaban 10 MG Tab PO SCH (20:13)
[2021-09-26] MEDS: [UNRECOGNIZED DRUG - OTHER] SQ SCH (20:20)
[2021-09-26] MEDS: INSULIN DETEMIR 100 UNIT/ML SQ SCH (20:20)
[2021-09-27] MEDS: VANCOmycin 1.5 GM/300 ML 300 ML IV SCH ×2 (02:21→13:33)
[2021-09-27] MEDS: Sodium Chloride 0.9% 10 ML Syringe FLUSH PRN (04:00)
[2021-09-27] MEDS: predniSONE 20 MG Tab PO SCH (08:00)
[2021-09-27] MEDS: CERAMIDES TP SCH (08:00)
[2021-09-27] MEDS: Pantoprazole 20 MG Tab, Delayed Release PO SCH ×2 (08:00→20:07)
[2021-09-27] MEDS: Furosemide 80 MG Tab PO SCH (08:00)
[2021-09-27] MEDS: Vitamin B Complex with Vitamin C Tab PO SCH ×2 (08:01→20:10)
[2021-09-27] MEDS: Gabapentin 300 MG Cap PO SCH ×3 (08:01→20:13)
[2021-09-27] MEDS: Cholecalciferol (Vitamin D3) 25 MCG Tab PO SCH (08:01)
[2021-09-27] MEDS: Tamsulosin 0.4 MG Cap.ER PO SCH (08:01)
[2021-09-27] MEDS: Silver Sulfadiazine 1% Crm 50 GM Tube TOP SCH (08:01)
[2021-09-27] MEDS: Calcium Carbonate 500 MG Tablet PO SCH ×2 (08:01→20:07)
[2021-09-27] MEDS: Formoterol/Mometasone 200-5 MCG 8.8 GM Inhaler IH SCH ×2 (08:01→20:04)
[2021-09-27] MEDS: Multivitamins with Iron/Calcium/Folic Acid/Minerals Tab PO SCH (08:01)
[2021-09-27] MEDS: Lutein/Minerals/Vitamin C/Vitamin E Acetate Cap PO SCH ×2 (08:01→20:05)
[2021-09-27] MEDS: Finasteride 5 MG Tab PO SCH (08:01)
[2021-09-27] MEDS: Acetaminophen/oxyCODONE 325-5 MG Tab PO PRN ×2 (08:02→13:33)
--- NOTE | 2021-09-27 10:31 | PCM.PN ---
- General Info Date of Service: 09/27/21 Subjective Update: States it is feeling better. 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 OT did pick for services to improved ADLs. Some balance issues with ambulation. States he takes an oral Diabetic medication but has been pending status per pharmacy. Pt had told them on admission that he wasn't taking so pharmacy will verify this and if he is taking it will have to do formulary substitution with Januvia, will start at 50 mg since his BS were 170 this morning & 278 yesterday. Had BM yesterday. Has [address] into his house, was able to do stairs yesterday with PT. Has [facility] currently so would go home on this. He has been on Vancomycin and Rocephin 4 days now, no cultures were able to be collected. Had previously had Unna boot from [place] [facility] which he feels made it worse. He normally can change wraps himself but not able to change dressings. Lives alone and does not have someone who would change the dressing except for HH nurse. Functional Status: Reports: Pain Controlled, Tolerating Diet, Ambulating, Urinating. Denies: New Symptoms - Patient Data Vitals - Most Recent: Last Vital Signs Temp 98.8 F 09/27/21 01:30 Pulse 87 09/27/21 01:30 Resp 18 09/27/21 01:30 BP 130/72 09/27/21 01:30 Pulse Ox 90 L 09/27/21 01:30 Weight - Most Recent: 282 lb 11.2 oz I&O - Last 24 Hours: Intake & Output 09/26/21 09/27/21 09/27/21 22:59 06:59 14:59 Intake Total 300 300 Balance 300 300 Lab Results Last 24 Hours: Laboratory Results - last 24 hr 09/26/21 09/27/21 09/27/21 Range/Units 16:40 01:30 06:19 Sodium (135-145) mmol/L Potassium (3.5-5.3) mmol/L Chloride (100-110) mmol/L Carbon Dioxide (21-32) mmol/L BUN (7-18) mg/dL Creatinine (0.70-1.30) mg/dL Est Cr Clr Drug Dosing mL/min Estimated GFR (MDRD) (>60) BUN/Creatinine Ratio (9-20) Glucose (80-116) mg/dL POC Glucose 278 H D 170 H D (80-116) mg/dL Calcium (8.6-10.2) mg/dL Vancomycin Trough 14.9 H (<0.8) ug/mL 09/27/21 Range/Units 09:30 Sodium 137 (135-145) mmol/L Potassium 3.5 (3.5-5.3) mmol/L Chloride 98 L (100-110) mmol/L Carbon Dioxide 34 H (21-32) mmol/L BUN 13 (7-18) mg/dL Creatinine 1.2 (0.70-1.30) mg/dL Est Cr Clr Drug Dosing 61.07 mL/min Estimated GFR (MDRD) 60 (>60) BUN/Creatinine Ratio 10.8 (9-20) Glucose 177 H (80-116) mg/dL POC Glucose (80-116) mg/dL Calcium 8.8 (8.6-10.2) mg/dL Vancomycin Trough (<0.8) ug/mL Shai Results Last 24 Hours: Microbiology 09/24/21 13:15 Aerobic Blood Culture - Preliminary Blood - Venous - Lab Draw NO GROWTH AFTER 2 DAYS Anaerobic Blood Culture - Preliminary NO GROWTH AFTER 2 DAYS 09/24/21 13:05 Aerobic Blood Culture - Preliminary Blood - Venous NO GROWTH AFTER 2 DAYS Anaerobic Blood Culture - Preliminary NO GROWTH AFTER 2 DAYS Med Orders - Current: Current Medications Acetaminophen (Acetaminophen 325 Mg Tab) 650 mg PO Q6H PRN PRN Reason: Pain Last Admin: 09/25/21 02:37 Dose: 650 mg Documented by: Albuterol (Albuterol 8 Gm Inhaler) 0 gm INH Q4H PRN PRN Reason: Shortness of Breath Artificial Tears (Polyvinyl Alcohol 1.4% Ophth Soln 15 Ml Bottle) 0 ml EYEBOTH QID PRN PRN Reason: DRY EYES Calcium Carbonate/Glycine (Calcium Carbonate 500 Mg Tablet) 500 mg PO BID [facility] Last Admin: 09/27/21 08:01 Dose: 500 mg Documented by: Ceftriaxone Sodium (Ceftriaxone 1 Gm Vial) 1 gm IVPUSH Q24H [facility] Last Admin: 09/26/21 14:55 Dose: 1 gm Documented by: Cholecalciferol (Cholecalciferol (Vitamin D3) 25 Mcg Tab) 50 mcg PO DAILY [facility] Last Admin: 09/27/21 08:01 Dose: 50 mcg Documented by: Finasteride (Finasteride 5 Mg Tab) 5 mg PO DAILY [facility] Last Admin: 09/27/21 08:01 Dose: 5 mg Documented by: Furosemide (Furosemide 40 Mg Tab) 40 mg PO DAILY@1200 [facility] Last Admin: 09/26/21 11:51 Dose: 40 mg Documented by: Furosemide (Furosemide 80 Mg Tab) 80 mg PO DAILY@0800 [facility] Last Admin: 09/27/21 08:00 Dose: 80 mg Documented by: Gabapentin (Gabapentin 300 Mg Cap) 300 mg PO TID [facility] Last Admin: 09/27/21 08:01 Dose: 300 mg Documented by: Hydroxyzine HCl (Hydroxyzine Hcl 25 Mg Tab) 25 mg PO TID PRN PRN Reason: Itching Vancomycin HCl (Vancomycin 1.5 Gm/300 Ml) 300 mls @ 200 mls/hr IV Q12H [facility] Last Admin: 09/27/21 02:21 Dose: 200 mls/hr Documented by: Miscellaneous Medication (Ceramides 1,3,6-11 340 Gm Cream) 0 gm TP DAILY [facility] Last Admin: 09/27/21 08:00 Dose: 1 applic Documented by: Mometasone Furoate/Formoterol Fumar (Formoterol/Mometasone 200-5 Mcg 8.8 Gm Inhaler) 0 puff IH BID [facility] Last Admin: 09/27/21 08:01 Dose: 2 puff Documented by: Morphine Sulfate (Morphine 2 Mg/Ml Syringe) 2 mg IVPUSH Q2H PRN PRN Reason: Pain (severe 7-10) Multivitamins (Vitamin B Complex With Vitamin C Tab) 1 each PO BID [facility] Last Admin: 09/27/21 08:01 Dose: 1 each Documented by: Multivitamins/Minerals (Multivitamins With Iron/Calcium/Folic Acid/Minerals Tab) 1 tab PO DAILY [facility] Last Admin: 09/27/21 08:01 Dose: 1 tab Documented by: Non-Formulary Medication (Alogliptin Benzoate [Alogliptin]) 25 mg PO DAILY [facility] Levemir Flextouch] 100 Unit/Ml Insuln. Pen *Ptom 15 unit SQ BEDTIME [facility] Last Admin: 09/26/21 20:20 Dose: 15 unit Documented by: Ondansetron HCl (Ondansetron 4 Mg/2 Ml Sdv) 4 mg IV Q4H PRN PRN Reason: Nausea/Vomiting Oxycodone/Acetaminophen (Acetaminophen/Oxycodone 325-5 Mg Tab) 1 tab PO Q4H PRN PRN Reason: Pain (moderate 4-6) Last Admin: 09/27/21 08:02 Dose: 1 tab Documented by: Pantoprazole Sodium (Pantoprazole 20 Mg Tab, Delayed Release) 20 mg PO BID@0730,2100 [facility] Last Admin: 09/27/21 08:00 Dose: 20 mg Documented by: Polyethylene Glycol (Polyethylene Glycol 3350 Powder 17 Gm Packet) 17 gm PO DAILY PRN PRN Reason: Constipation Prednisone (Prednisone 20 Mg Tab) 20 mg PO WITHBREAKFAST [facility] Stop: 09/30/21 08:01 Last Admin: 09/27/21 08:00 Dose: 20 mg Documented by: Rivaroxaban (Rivaroxaban 10 Mg Tab) 10 mg PO BEDTIME [facility] Last Admin: 09/26/21 20:13 Dose: 10 mg Documented by: Senna/Docusate Sodium (Docusate Sodium/Sennosides 50-8.6 Mg Tab) 2 tab PO BID PRN PRN Reason: Constipation Silver Sulfadiazine (Silver Sulfadiazine 1% Crm 50 Gm Tube) 0 gm TOP DAILY [facility] Last Admin: 09/27/21 08:01 Dose: 1 applic Documented by: Sodium Chloride (Sodium Chloride 0.9% 10 Ml Syringe) 10 ml FLUSH ASDIRECTED PRN PRN Reason: Keep Vein Open Last Admin: 09/27/21 04:00 Dose: 10 ml Documented by: Tamsulosin HCl (Tamsulosin 0.4 Mg Cap.Er) 0.4 mg PO DAILY [facility] Last Admin: 09/27/21 08:01 Dose: 0.4 mg Documented by: Vancomycin HCl (Pharmacy To Dose - Vancomycin) 1 dose .XX ASDIRECTED [facility] Vit C/Vit E/Zinc/Copper/Lutein (Lutein/Minerals/Vitamin C/Vitamin E Acetate Cap) 1 each PO BID [facility] Last Admin: 09/27/21 08:01 Dose: 1 each Documented by: Discontinued Medications Azithromycin (Azithromycin 500 Mg Tab) 500 mg PO ONETIME ONE Stop: 09/25/21 10:01 Last Admin: 09/25/21 10:56 Dose: 500 mg Documented by: Azithromycin (Azithromycin 250 Mg Tab) 250 mg PO DAILY [facility] Stop: 09/29/21 09:01 Vancomycin HCl 1 gm/ Premix 200 mls @ 200 mls/hr IV Q12H [facility] Last Admin: 09/25/21 02:28 Dose: 200 mls/hr Documented by: Insulin Glargine (Insulin Glargine,Human Rec. Analog 100 Units/Ml 3 Ml Pen) 12 units SUBCUT BEDTIME [facility] Ketorolac Tromethamine (Ketorolac 30 Mg/Ml Sdv) 30 mg IVPUSH NOW STA Stop: 09/24/21 16:03 Last Admin: 09/24/21 16:12 Dose: 30 mg Documented by: Mometasone Furoate/Formoterol Fumar (Formoterol/Mometasone 200-5 Mcg 8.8 Gm Inhaler) 2 puff IH BID [facility] Last Admin: 09/24/21 20:32 Dose: 2 puff Documented by: Multivitamins/Minerals (Beta-Carotene (Vitamin A) W/Vitamin C & E Plus Minerals Tab) 1 tab PO BID [facility] Last Admin: 09/24/21 20:31 Dose: 1 tab Documented by: Oxycodone/Acetaminophen (Acetaminophen/Oxycodone 325-5 Mg Tab) 2 tab PO Q4H PRN PRN Reason: Pain (moderate 4-6) Last Admin: 09/24/21 16:13 Dose: 2 tab Documented by: Insulin Detemir Pen (*Pt Own Med*) 0 each SUBCUT BEDTIME [facility] Last Admin: 09/25/21 21:22 Dose: Not Given Documented by: Testosterone Cypionate (Testosterone Cypionate 2,000 Mg/10 Ml Mdv) 50 mg IM Tu@0900 [facility] Last Admin: 09/24/21 18:26 Dose: Not Given Documented by: Trimethoprim/Sulfamethoxazole (Sulfamethoxazole/Trimethoprim 800-160 Mg Tab) 1 tab PO BID [facility] Last Admin: 09/25/21 08:41 Dose: 1 tab Documented by: - Exam General: Alert, Oriented, Cooperative, No Acute Distress Lungs: Clear to Auscultation, Normal Respiratory Effort, Decreased Breath Sounds, Wheezing (Occasional RLL) Cardiovascular: Regular Rate, Regular Rhythm GI/Abdominal Exam: Normal Bowel Sounds, Soft, Non-Tender, No Distention Extremities: Pedal Edema (BLE NESSA wrapped and covered with plastic bags, OT getting him ready to shower. ) - Patient Data Lab Results Last 24 hrs: Laboratory Results - last 24 hr 09/26/21 09/27/21 09/27/21 Range/Units 16:40 01:30 06:19 Sodium (135-145) mmol/L Potassium (3.5-5.3) mmol/L Chloride (100-110) mmol/L Carbon Dioxide (21-32) mmol/L BUN (7-18) mg/dL Creatinine (0.70-1.30) mg/dL Est Cr Clr Drug Dosing mL/min Estimated GFR (MDRD) (>60) BUN/Creatinine Ratio (9-20) Glucose (80-116) mg/dL POC Glucose 278 H D 170 H D (80-116) mg/dL Calcium (8.6-10.2) mg/dL Vancomycin Trough 14.9 H (<0.8) ug/mL 09/27/21 Range/Units 09:30 Sodium 137 (135-145) mmol/L Potassium 3.5 (3.5-5.3) mmol/L Chloride 98 L (100-110) mmol/L Carbon Dioxide 34 H (21-32) mmol/L BUN 13 (7-18) mg/dL Creatinine 1.2 (0.70-1.30) mg/dL Est Cr Clr Drug Dosing 61.07 mL/min Estimated GFR (MDRD) 60 (>60) BUN/Creatinine Ratio 10.8 (9-20) Glucose 177 H (80-116) mg/dL POC Glucose (80-116) mg/dL Calcium 8.8 (8.6-10.2) mg/dL Vancomycin Trough (<0.8) ug/mL Result Diagrams: 09/26/21 06:00 09/27/21 09:30 Shai Results Last 24 hrs: Microbiology 09/24/21 13:15 Aerobic Blood Culture - Preliminary Blood - Venous - Lab Draw NO GROWTH AFTER 2 DAYS Anaerobic Blood Culture - Preliminary NO GROWTH AFTER 2 DAYS 09/24/21 13:05 Aerobic Blood Culture - Preliminary Blood - Venous NO GROWTH AFTER 2 DAYS Anaerobic Blood Culture - Preliminary NO GROWTH AFTER 2 DAYS Sepsis Event Note - Evaluation Sepsis Screening Result: No Definite Risk - Focused Exam Vital Signs: Vital Signs Temp Pulse Resp BP Pulse Ox 09/27/21 01:30 98.8 F 87 18 130/72 90 L - Problem List & Annotations (1) Cellulitis of left lower extremity SNOMED Code(s): 926752469 Code(s): L03.116 - CELLULITIS OF LEFT LOWER LIMB Status: Acute Current Visit: No (2) Cellulitis SNOMED Code(s): 163607145 Code(s): L03.90 - CELLULITIS, UNSPECIFIED Status: Acute Current Visit: Yes Qualifiers: Site of cellulitis: extremity Site of cellulitis of extremity: lower extremity Laterality: right Qualified Code(s): L03.115 - Cellulitis of right lower limb (3) COPD exacerbation SNOMED Code(s): 883839136 Code(s): J44.1 - CHRONIC OBSTRUCTIVE PULMONARY DISEASE W (ACUTE) EXACERBATION Status: Acute Current Visit: Yes (4) Diabetes SNOMED Code(s): 79064938 Code(s): E11.9 - TYPE 2 DIABETES MELLITUS WITHOUT COMPLICATIONS Status: Chronic Current Visit: Yes (5) Venous stasis dermatitis of both lower extremities SNOMED Code(s): 56788994 Code(s): I87.2 - VENOUS INSUFFICIENCY (CHRONIC) (PERIPHERAL) Status: Chronic Current Visit: No (6) History of MRSA infection SNOMED Code(s): 090765592, 023468864 Code(s): Z86.14 - PERSONAL HISTORY OF METHICILLIN RESIS STAPH INFECTION Status: Acute Current Visit: No (7) Palliative care status SNOMED Code(s): 796254963 Code(s): Z51.5 - ENCOUNTER FOR PALLIATIVE CARE Status: Chronic Current Visit: No - Problem List Review Problem List Initiated/Reviewed/Updated: Yes - Plan Plan:: 1. Cellulitis, BLE: Day 4 of Rocephin and Day 3 of Vancomycin, WBC normal on 09/26. Hx of MRSA, will treat at least 7 days with IV Vancomycin/Rocephin and adjust treatments to his response. 2. COPD: Prednisone 20 mg a daily 2/5 doses. Dulera substituted for Symbicort. 3. DM: Januvia 25 mg daily substituted for Alogliptin 25 mg daily, Continue Levemir 15 units at bedtime. Adjust as necessary. 4. Disposition: anticipate through weekend at least to get 7 days of IV Vancomycin/Rocephin. [facility] for dressing changes, OT when he goes home.
[2021-09-27] MEDS: Furosemide 40 MG Tab PO SCH (11:36)
[2021-09-27] MEDS: cefTRIAXone 1 GM Vial IVPUSH SCH (15:17)
[2021-09-27] MEDS: Rivaroxaban 10 MG Tab PO SCH (20:10)
[2021-09-27] MEDS: Sulfamethoxazole/Trimethoprim 800-160 MG Tab PO SCH (20:13)
[2021-09-27] MEDS: [UNRECOGNIZED DRUG - OTHER] SQ SCH (20:21)
[2021-09-27] MEDS: INSULIN DETEMIR 100 UNIT/ML SQ SCH (20:21)
[2021-09-28] MEDS: VANCOmycin 1.5 GM/300 ML 300 ML IV SCH ×2 (01:55→14:09)
[2021-09-28] MEDS: Sodium Chloride 0.9% 10 ML Syringe FLUSH PRN ×2 (03:32→15:56)
[2021-09-28] MEDS: Pantoprazole 20 MG Tab, Delayed Release PO SCH ×2 (06:36→20:26)
[2021-09-28] MEDS: Formoterol/Mometasone 200-5 MCG 8.8 GM Inhaler IH SCH ×2 (08:29→20:26)
[2021-09-28] MEDS: Lutein/Minerals/Vitamin C/Vitamin E Acetate Cap PO SCH ×2 (08:34→20:26)
[2021-09-28] MEDS: Tamsulosin 0.4 MG Cap.ER PO SCH (08:34)
[2021-09-28] MEDS: Furosemide 80 MG Tab PO SCH (08:34)
[2021-09-28] MEDS: Calcium Carbonate 500 MG Tablet PO SCH ×2 (08:34→20:26)
[2021-09-28] MEDS: Cholecalciferol (Vitamin D3) 25 MCG Tab PO SCH (08:35)
[2021-09-28] MEDS: CERAMIDES TP SCH (08:35)
[2021-09-28] MEDS: Finasteride 5 MG Tab PO SCH (08:35)
[2021-09-28] MEDS: Silver Sulfadiazine 1% Crm 50 GM Tube TOP SCH (08:35)
[2021-09-28] MEDS: Multivitamins with Iron/Calcium/Folic Acid/Minerals Tab PO SCH (08:36)
[2021-09-28] MEDS: Sulfamethoxazole/Trimethoprim 800-160 MG Tab PO SCH ×2 (08:36→20:26)
[2021-09-28] MEDS: Vitamin B Complex with Vitamin C Tab PO SCH ×2 (08:37→20:26)
[2021-09-28] MEDS: Gabapentin 300 MG Cap PO SCH ×3 (08:39→20:26)
--- NOTE | 2021-09-28 09:46 | PCM.PN ---
- General Info Date of Service: 09/28/21 Subjective Update: Cristian had redness to his back yesterday and now itching. He remembered that his reaction to Prednisone was rash/itching, had been listed on his chart but unknown reaction. Chart updated, prednisone discontinued. Wound culture was collected on 09/25 and came back polymicrobial with 5 different colonies growing, 2 were identified as Enterobacter and Stenotrophomonas sensitive to Rocephin & Bactrim, Bactrim respectively; other 3 are still pending: possible Klebsiella, staph, strep. His legs are improved, edema is down and ulcerations are improving. No fevers. States having some pain in his hips, has been laying in bed more than he does at home, advised to get up walking with nursing today and see if that helps before doing any imaging. 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 Functional Status: Reports: Pain Controlled, Tolerating Diet, Ambulating, Urinating - Patient Data Vitals - Most Recent: Last Vital Signs Temp 98.5 F 09/28/21 07:59 Pulse 82 09/28/21 07:59 Resp 17 09/28/21 07:59 BP 127/69 09/28/21 07:59 Pulse Ox 92 L 09/28/21 07:59 Weight - Most Recent: 282 lb 11.2 oz I&O - Last 24 Hours: Intake & Output 09/27/21 09/28/21 09/28/21 22:59 06:59 14:59 Intake Total 300 Balance 300 Lab Results Last 24 Hours: Laboratory Results - last 24 hr 09/27/21 09/27/21 09/28/21 Range/Units 09:30 18:02 06:35 Sodium 137 (135-145) mmol/L Potassium 3.5 (3.5-5.3) mmol/L Chloride 98 L (100-110) mmol/L Carbon Dioxide 34 H (21-32) mmol/L BUN 13 (7-18) mg/dL Creatinine 1.2 (0.70-1.30) mg/dL Est Cr Clr Drug Dosing 61.07 mL/min Estimated GFR (MDRD) 60 (>60) BUN/Creatinine Ratio 10.8 (9-20) Glucose 177 H (80-116) mg/dL POC Glucose 294 H D 156 H D (80-116) mg/dL Calcium 8.8 (8.6-10.2) mg/dL Shai Results Last 24 Hours: Microbiology 09/24/21 13:15 Aerobic Blood Culture - Preliminary Blood - Venous - Lab Draw NO GROWTH AFTER 3 DAYS Anaerobic Blood Culture - Preliminary NO GROWTH AFTER 3 DAYS 09/24/21 13:05 Aerobic Blood Culture - Preliminary Blood - Venous NO GROWTH AFTER 3 DAYS Anaerobic Blood Culture - Preliminary NO GROWTH AFTER 3 DAYS Med Orders - Current: Current Medications Acetaminophen (Acetaminophen 325 Mg Tab) 650 mg PO Q6H PRN PRN Reason: Pain Last Admin: 09/25/21 02:37 Dose: 650 mg Documented by: Albuterol (Albuterol 8 Gm Inhaler) 0 gm INH Q4H PRN PRN Reason: Shortness of Breath Artificial Tears (Polyvinyl Alcohol 1.4% Ophth Soln 15 Ml Bottle) 0 ml EYEBOTH QID PRN PRN Reason: DRY EYES Calcium Carbonate/Glycine (Calcium Carbonate 500 Mg Tablet) 500 mg PO BID [facility] Last Admin: 09/28/21 08:34 Dose: 500 mg Documented by: Ceftriaxone Sodium (Ceftriaxone 1 Gm Vial) 1 gm IVPUSH Q24H [facility] Last Admin: 09/27/21 15:17 Dose: 1 gm Documented by: Cholecalciferol (Cholecalciferol (Vitamin D3) 25 Mcg Tab) 50 mcg PO DAILY [facility] Last Admin: 09/28/21 08:35 Dose: 50 mcg Documented by: Finasteride (Finasteride 5 Mg Tab) 5 mg PO DAILY [facility] Last Admin: 09/28/21 08:35 Dose: 5 mg Documented by: Furosemide (Furosemide 40 Mg Tab) 40 mg PO DAILY@1200 [facility] Last Admin: 09/27/21 11:36 Dose: 40 mg Documented by: Furosemide (Furosemide 80 Mg Tab) 80 mg PO DAILY@0800 [facility] Last Admin: 09/28/21 08:34 Dose: 80 mg Documented by: Gabapentin (Gabapentin 300 Mg Cap) 300 mg PO TID [facility] Last Admin: 09/28/21 08:39 Dose: 300 mg Documented by: Hydroxyzine HCl (Hydroxyzine Hcl 25 Mg Tab) 25 mg PO TID PRN PRN Reason: Itching Vancomycin HCl (Vancomycin 1.5 Gm/300 Ml) 300 mls @ 200 mls/hr IV Q12H [facility] Last Admin: 09/28/21 01:55 Dose: 200 mls/hr Documented by: Miscellaneous Medication (Ceramides 1,3,6-11 340 Gm Cream) 0 gm TP DAILY [facility] Last Admin: 09/28/21 08:35 Dose: 1 applic Documented by: Mometasone Furoate/Formoterol Fumar (Formoterol/Mometasone 200-5 Mcg 8.8 Gm Inhaler) 0 puff IH BID [facility] Last Admin: 09/28/21 08:29 Dose: 2 puff Documented by: Morphine Sulfate (Morphine 2 Mg/Ml Syringe) 2 mg IVPUSH Q2H PRN PRN Reason: Pain (severe 7-10) Multivitamins (Vitamin B Complex With Vitamin C Tab) 1 each PO BID [facility] Last Admin: 09/28/21 08:37 Dose: 1 each Documented by: Multivitamins/Minerals (Multivitamins With Iron/Calcium/Folic Acid/Minerals Tab) 1 tab PO DAILY [facility] Last Admin: 09/28/21 08:36 Dose: 1 tab Documented by: Daniel Jarrettuch] 100 Unit/Ml Insuln. Pen *Ptom 15 unit SQ BEDTIME [facility] Last Admin: 09/27/21 20:21 Dose: 15 unit Documented by: Ondansetron HCl (Ondansetron 4 Mg/2 Ml Sdv) 4 mg IV Q4H PRN PRN Reason: Nausea/Vomiting Oxycodone/Acetaminophen (Acetaminophen/Oxycodone 325-5 Mg Tab) 1 tab PO Q4H PRN PRN Reason: Pain (moderate 4-6) Last Admin: 09/27/21 13:33 Dose: 1 tab Documented by: Pantoprazole Sodium (Pantoprazole 20 Mg Tab, Delayed Release) 20 mg PO BID@0730,2100 [facility] Last Admin: 09/28/21 06:36 Dose: 20 mg Documented by: Polyethylene Glycol (Polyethylene Glycol 3350 Powder 17 Gm Packet) 17 gm PO DAILY PRN PRN Reason: Constipation Rivaroxaban (Rivaroxaban 10 Mg Tab) 10 mg PO BEDTIME [facility] Last Admin: 09/27/21 20:10 Dose: 10 mg Documented by: Senna/Docusate Sodium (Docusate Sodium/Sennosides 50-8.6 Mg Tab) 2 tab PO BID PRN PRN Reason: Constipation Silver Sulfadiazine (Silver Sulfadiazine 1% Crm 50 Gm Tube) 0 gm TOP DAILY [facility] Last Admin: 09/28/21 08:35 Dose: 1 applic Documented by: Sitagliptin Phosphate (Sitagliptin 50 Mg Tab) 100 mg PO DAILY [facility] Sodium Chloride (Sodium Chloride 0.9% 10 Ml Syringe) 10 ml FLUSH ASDIRECTED PRN PRN Reason: Keep Vein Open Last Admin: 09/28/21 03:32 Dose: 10 ml Documented by: Tamsulosin HCl (Tamsulosin 0.4 Mg Cap.Er) 0.4 mg PO DAILY [facility] Last Admin: 09/28/21 08:34 Dose: 0.4 mg Documented by: Trimethoprim/Sulfamethoxazole (Sulfamethoxazole/Trimethoprim 800-160 Mg Tab) 1 tab PO BID [facility] Last Admin: 09/28/21 08:36 Dose: 1 tab Documented by: Vancomycin HCl (Pharmacy To Dose - Vancomycin) 1 dose .XX ASDIRECTED [facility] Vit C/Vit E/Zinc/Copper/Lutein (Lutein/Minerals/Vitamin C/Vitamin E Acetate Cap) 1 each PO BID [facility] Last Admin: 09/28/21 08:34 Dose: 1 each Documented by: Discontinued Medications Azithromycin (Azithromycin 500 Mg Tab) 500 mg PO ONETIME ONE Stop: 09/25/21 10:01 Last Admin: 09/25/21 10:56 Dose: 500 mg Documented by: Azithromycin (Azithromycin 250 Mg Tab) 250 mg PO DAILY [facility] Stop: 09/29/21 09:01 Vancomycin HCl 1 gm/ Premix 200 mls @ 200 mls/hr IV Q12H [facility] Last Admin: 09/25/21 02:28 Dose: 200 mls/hr Documented by: Insulin Glargine (Insulin Glargine,Human Rec. Analog 100 Units/Ml 3 Ml Pen) 12 units SUBCUT BEDTIME [facility] Ketorolac Tromethamine (Ketorolac 30 Mg/Ml Sdv) 30 mg IVPUSH NOW STA Stop: 09/24/21 16:03 Last Admin: 09/24/21 16:12 Dose: 30 mg Documented by: Mometasone Furoate/Formoterol Fumar (Formoterol/Mometasone 200-5 Mcg 8.8 Gm Inhaler) 2 puff IH BID [facility] Last Admin: 09/24/21 20:32 Dose: 2 puff Documented by: Multivitamins/Minerals (Beta-Carotene (Vitamin A) W/Vitamin C & E Plus Minerals Tab) 1 tab PO BID [facility] Last Admin: 09/24/21 20:31 Dose: 1 tab Documented by: Oxycodone/Acetaminophen (Acetaminophen/Oxycodone 325-5 Mg Tab) 2 tab PO Q4H PRN PRN Reason: Pain (moderate 4-6) Last Admin: 09/24/21 16:13 Dose: 2 tab Documented by: Insulin Detemir Pen (*Pt Own Med*) 0 each SUBCUT BEDTIME [facility] Last Admin: 09/25/21 21:22 Dose: Not Given Documented by: Prednisone (Prednisone 20 Mg Tab) 20 mg PO WITHBREAKFAST [facility] Stop: 10/01/21 08:01 Last Admin: 09/27/21 08:00 Dose: 20 mg Documented by: Sitagliptin Phosphate (Sitagliptin 50 Mg Tab) 50 mg PO DAILY [facility] Last Admin: 09/28/21 08:34 Dose: 50 mg Documented by: Testosterone Cypionate (Testosterone Cypionate 2,000 Mg/10 Ml Mdv) 50 mg IM Tu@0900 [facility] Last Admin: 09/24/21 18:26 Dose: Not Given Documented by: Trimethoprim/Sulfamethoxazole (Sulfamethoxazole/Trimethoprim 800-160 Mg Tab) 1 tab PO BID [facility] Last Admin: 09/25/21 08:41 Dose: 1 tab Documented by: - Exam General: Alert, Oriented, Cooperative, No Acute Distress Lungs: Clear to Auscultation, Normal Respiratory Effort. No: Crackles, Wheezing Cardiovascular: Regular Rate, Regular Rhythm GI/Abdominal Exam: Normal Bowel Sounds, Soft, Non-Tender, No Distention (Male) Exam: Deferred Extremities: Pedal Edema (improved, 1+ BLE), Redness. No: Increased Warmth Peripheral Pulses: 2+: Radial (L), Radial (R) Wound/Incisions: Drainage (minimal), Erythema Improving - Patient Data Lab Results Last 24 hrs: Laboratory Results - last 24 hr 09/27/21 09/27/21 09/28/21 Range/Units 09:30 18:02 06:35 Sodium 137 (135-145) mmol/L Potassium 3.5 (3.5-5.3) mmol/L Chloride 98 L (100-110) mmol/L Carbon Dioxide 34 H (21-32) mmol/L BUN 13 (7-18) mg/dL Creatinine 1.2 (0.70-1.30) mg/dL Est Cr Clr Drug Dosing 61.07 mL/min Estimated GFR (MDRD) 60 (>60) BUN/Creatinine Ratio 10.8 (9-20) Glucose 177 H (80-116) mg/dL POC Glucose 294 H D 156 H D (80-116) mg/dL Calcium 8.8 (8.6-10.2) mg/dL Result Diagrams: 09/26/21 06:00 09/27/21 09:30 Shai Results Last 24 hrs: Microbiology 09/24/21 13:15 Aerobic Blood Culture - Preliminary Blood - Venous - Lab Draw NO GROWTH AFTER 3 DAYS Anaerobic Blood Culture - Preliminary NO GROWTH AFTER 3 DAYS 09/24/21 13:05 Aerobic Blood Culture - Preliminary Blood - Venous NO GROWTH AFTER 3 DAYS Anaerobic Blood Culture - Preliminary NO GROWTH AFTER 3 DAYS Sepsis Event Note - Evaluation Sepsis Screening Result: No Definite Risk - Focused Exam Vital Signs: Vital Signs Temp Temp Pulse Resp BP Pulse Ox 09/28/21 07:59 98.5 F 82 17 127/69 92 L 09/28/21 03:52 97.9 F 82 18 120/67 91 L 09/28/21 00:00 98.4 F 88 18 110/56 L 91 L - Problem List & Annotations (1) Cellulitis of left lower extremity SNOMED Code(s): 676156207 Code(s): L03.116 - CELLULITIS OF LEFT LOWER LIMB Status: Acute Current Visit: No (2) Cellulitis SNOMED Code(s): 817622730 Code(s): L03.90 - CELLULITIS, UNSPECIFIED Status: Acute Current Visit: Yes Qualifiers: Site of cellulitis: extremity Site of cellulitis of extremity: lower extremity Laterality: right Qualified Code(s): L03.115 - Cellulitis of right lower limb (3) COPD exacerbation SNOMED Code(s): 512125559 Code(s): J44.1 - CHRONIC OBSTRUCTIVE PULMONARY DISEASE W (ACUTE) EXACERBATION Status: Acute Current Visit: Yes Annotation/Comment:: Discontinue prednisone due to rash/itching. Chart updated as to his reaction. (4) Diabetes SNOMED Code(s): 38230778 Code(s): E11.9 - TYPE 2 DIABETES MELLITUS WITHOUT COMPLICATIONS Status: Chronic Current Visit: Yes (5) Venous stasis dermatitis of both lower extremities SNOMED Code(s): 37416588 Code(s): I87.2 - VENOUS INSUFFICIENCY (CHRONIC) (PERIPHERAL) Status: Chronic Current Visit: No (6) History of MRSA infection SNOMED Code(s): 585796130, 922044172 Code(s): Z86.14 - PERSONAL HISTORY OF METHICILLIN RESIS STAPH INFECTION Status: Acute Current Visit: No (7) Palliative care status SNOMED Code(s): 948425592 Code(s): Z51.5 - ENCOUNTER FOR PALLIATIVE CARE Status: Chronic Current Visit: No - Problem List Review Problem List Initiated/Reviewed/Updated: Yes - My Orders Last 24 Hours: My Active Orders 09/27/21 21:00 Sulfamethoxazole/Trimethoprim [Septra DS] 1 tab PO BID 09/29/21 09:00 SitaGLIPtin [Januvia] 100 mg PO DAILY 09/29/21 13:30 BASIC METABOLIC PANEL,BMP [CHEM] Routine CBC WITH AUTO DIFF [HEME] Routine - Plan Plan:: 1. Cellulitis, BLE: Day 5 of Rocephin and Day 4 of Vancomycin, WBC normal on 09/26, repeat tomorrow with vancomycin trough. Enterobacter & Stenotrophomonas sensitive to Bactrim for both, started Bactrim DS bid last evening. ID/SHAI pending on 3 other organisms: possible Klebsiella, staph, strep. Will adjust antibiotics to sensitivities once all back. 2. COPD: Discontinued Prednisone, had itching and rash to back after 2 doses. Dulera substituted for Symbicort. Tolerates his inhalers in regards to his prednisone allergy. 3. DM: Increase Januvia 100 mg daily from 50 mg, substituted for Alogliptin 25 mg daily, Continue Levemir 15 units at bedtime. Adjust as necessary. 4. Disposition: anticipate through weekend once sensitivities are back in regards to wound culture. [facility] for dressing changes, OT when he goes home.
[2021-09-28] MEDS: Acetaminophen/oxyCODONE 325-5 MG Tab PO PRN ×2 (10:17→20:09)
[2021-09-28] MEDS: Furosemide 40 MG Tab PO SCH (12:35)
[2021-09-28] MEDS: cefTRIAXone 1 GM Vial IVPUSH SCH (15:52)
[2021-09-28] MEDS: Rivaroxaban 10 MG Tab PO SCH (20:26)
[2021-09-28] MEDS: [UNRECOGNIZED DRUG - OTHER] SQ SCH (20:32)
[2021-09-28] MEDS: INSULIN DETEMIR 100 UNIT/ML SQ SCH (20:32)
[2021-09-29] MEDS: Pantoprazole 20 MG Tab, Delayed Release PO SCH ×2 (06:31→21:42)
[2021-09-29] MEDS: Acetaminophen/oxyCODONE 325-5 MG Tab PO PRN ×2 (08:10→21:49)
[2021-09-29] MEDS: Furosemide 80 MG Tab PO SCH (08:11)
[2021-09-29] MEDS: Formoterol/Mometasone 200-5 MCG 8.8 GM Inhaler IH SCH ×2 (09:19→21:41)
[2021-09-29] MEDS: Tamsulosin 0.4 MG Cap.ER PO SCH (09:22)
[2021-09-29] MEDS: Lutein/Minerals/Vitamin C/Vitamin E Acetate Cap PO SCH ×2 (09:23→21:41)
[2021-09-29] MEDS: Sulfamethoxazole/Trimethoprim 800-160 MG Tab PO SCH ×2 (09:23→21:43)
[2021-09-29] MEDS: Finasteride 5 MG Tab PO SCH (09:23)
[2021-09-29] MEDS: Calcium Carbonate 500 MG Tablet PO SCH ×2 (09:23→21:42)
[2021-09-29] MEDS: Vitamin B Complex with Vitamin C Tab PO SCH ×2 (09:24→21:43)
[2021-09-29] MEDS: Multivitamins with Iron/Calcium/Folic Acid/Minerals Tab PO SCH (09:24)
[2021-09-29] MEDS: Cholecalciferol (Vitamin D3) 25 MCG Tab PO SCH (09:24)
[2021-09-29] MEDS: Gabapentin 300 MG Cap PO SCH ×3 (09:29→21:48)
--- NOTE | 2021-09-29 10:06 | PCM.PN ---
- General Info Date of Service: 09/29/21 Subjective Update: His left leg swelling is much improved today, right leg more swollen but no hot. Back is still itching from prednisone, states he takes Hydroxyzine at home as needed for itching, has gotten from [facility] for about 10 yrs. He does have this ordered. No fevers, chills. States he feels constipated, wanted a brown cow(warm prune juice with butter) had at [facility] and works for him. - Patient Data Vitals - Most Recent: Last Vital Signs Temp 98.2 F 09/29/21 08:00 Pulse 97 09/29/21 08:00 Resp 18 09/29/21 08:00 BP 119/73 09/29/21 08:00 Pulse Ox 93 L 09/29/21 08:00 Weight - Most Recent: 282 lb 11.2 oz Lab Results Last 24 Hours: Laboratory Results - last 24 hr 09/28/21 09/29/21 09/29/21 Range/Units 20:20 06:40 06:40 WBC 8.2 (3.2-10.1) x10-3/uL RBC 5.12 (3.90-5.90) x10(6)uL Hgb 12.4 L (12.9-17.7) g/dL Hct 39.3 (38.3-50.1) % MCV 76.8 L (80.8-98.7) fL MCH 24.2 L (27.0-33.3) pg MCHC 31.6 (28.7-35.3) g/dL RDW 15.7 H (12.4-15.0) % Plt Count 231 (117-477) x10(3)uL MPV 7.0 (6.7-11.0) fL Neut % (Auto) 69.8 (40.3-71.8) % Lymph % (Auto) 16.3 (15.8-45.3) % [facility] % (Auto) 8.0 (5.5-15.2) % Eos % (Auto) 5.2 (0.1-6.8) % Baso % (Auto) 0.7 (0.3-3.8) % Neut # (Auto) 5.7 (1.7-6.9) x10-3/uL Lymph # (Auto) 1.3 (0.5-4.5) x10-3/uL [facility] # (Auto) 0.7 (0.0-1.2) x10-3/uL Eos # (Auto) 0.4 (0.0-0.6) x10-3/uL Baso # (Auto) 0.1 (0.0-0.3) x10-3/uL Sodium 138 (135-145) mmol/L Potassium 3.5 (3.5-5.3) mmol/L Chloride 99 L (100-110) mmol/L Carbon Dioxide 35 H (21-32) mmol/L BUN 14 (7-18) mg/dL Creatinine 1.2 (0.70-1.30) mg/dL Est Cr Clr Drug Dosing 61.07 mL/min Estimated GFR (MDRD) 60 (>60) BUN/Creatinine Ratio 11.7 (9-20) Glucose 150 H (80-116) mg/dL POC Glucose 186 H (80-116) mg/dL Calcium 8.9 (8.6-10.2) mg/dL Shai Results Last 24 Hours: Microbiology 09/25/21 10:52 Gram Stain - Final Skin / Skin Scrapings - Leg, Left Testing performed by: [address] [id number] SEE SEPARATE/SCANNED REPORT Routine Culture - Preliminary Testing performed by: [address] [id number] SEE SEPARATE/SCANNED REPORT 09/24/21 13:15 Aerobic Blood Culture - Preliminary Blood - Venous - Lab Draw NO GROWTH AFTER 4 DAYS Anaerobic Blood Culture - Preliminary NO GROWTH AFTER 4 DAYS 09/24/21 13:05 Aerobic Blood Culture - Preliminary Blood - Venous NO GROWTH AFTER 4 DAYS Anaerobic Blood Culture - Preliminary NO GROWTH AFTER 4 DAYS Med Orders - Current: Current Medications Acetaminophen (Acetaminophen 325 Mg Tab) 650 mg PO Q6H PRN PRN Reason: Pain Last Admin: 09/25/21 02:37 Dose: 650 mg Documented by: Albuterol (Albuterol 8 Gm Inhaler) 0 gm INH Q4H PRN PRN Reason: Shortness of Breath Artificial Tears (Polyvinyl Alcohol 1.4% Ophth Soln 15 Ml Bottle) 0 ml EYEBOTH QID PRN PRN Reason: DRY EYES Calcium Carbonate/Glycine (Calcium Carbonate 500 Mg Tablet) 500 mg PO BID [facility] Last Admin: 09/29/21 09:23 Dose: 500 mg Documented by: Ceftriaxone Sodium (Ceftriaxone 1 Gm Vial) 1 gm IVPUSH Q24H [facility] Last Admin: 09/28/21 15:52 Dose: 1 gm Documented by: Cholecalciferol (Cholecalciferol (Vitamin D3) 25 Mcg Tab) 50 mcg PO DAILY [facility] Last Admin: 09/29/21 09:24 Dose: 50 mcg Documented by: Finasteride (Finasteride 5 Mg Tab) 5 mg PO DAILY [facility] Last Admin: 09/29/21 09:23 Dose: 5 mg Documented by: Furosemide (Furosemide 40 Mg Tab) 40 mg PO DAILY@1200 [facility] Last Admin: 09/28/21 12:35 Dose: 40 mg Documented by: Furosemide (Furosemide 80 Mg Tab) 80 mg PO DAILY@0800 [facility] Last Admin: 09/29/21 08:11 Dose: 80 mg Documented by: Gabapentin (Gabapentin 300 Mg Cap) 300 mg PO TID [facility] Last Admin: 09/29/21 09:29 Dose: 300 mg Documented by: Hydroxyzine HCl (Hydroxyzine Hcl 25 Mg Tab) 25 mg PO TID PRN PRN Reason: Itching Miscellaneous Medication (Ceramides 1,3,6-11 340 Gm Cream) 0 gm TP DAILY [facility] Last Admin: 09/28/21 08:35 Dose: 1 applic Documented by: Mometasone Furoate/Formoterol Fumar (Formoterol/Mometasone 200-5 Mcg 8.8 Gm Inhaler) 0 puff IH BID [facility] Last Admin: 09/29/21 09:19 Dose: 2 puff Documented by: Morphine Sulfate (Morphine 2 Mg/Ml Syringe) 2 mg IVPUSH Q2H PRN PRN Reason: Pain (severe 7-10) Multivitamins (Vitamin B Complex With Vitamin C Tab) 1 each PO BID [facility] Last Admin: 09/29/21 09:24 Dose: 1 each Documented by: Multivitamins/Minerals (Multivitamins With Iron/Calcium/Folic Acid/Minerals Tab) 1 tab PO DAILY [facility] Last Admin: 09/29/21 09:24 Dose: 1 tab Documented by: Daniel Jarrettuch] 100 Unit/Ml Insuln. Pen *Ptom 15 unit SQ BEDTIME [facility] Last Admin: 09/28/21 20:32 Dose: 15 unit Documented by: Ondansetron HCl (Ondansetron 4 Mg/2 Ml Sdv) 4 mg IV Q4H PRN PRN Reason: Nausea/Vomiting Oxycodone/Acetaminophen (Acetaminophen/Oxycodone 325-5 Mg Tab) 1 tab PO Q4H PRN PRN Reason: Pain (moderate 4-6) Last Admin: 09/29/21 08:10 Dose: 1 tab Documented by: Pantoprazole Sodium (Pantoprazole 20 Mg Tab, Delayed Release) 20 mg PO BID@0730,2100 [facility] Last Admin: 09/29/21 06:31 Dose: 20 mg Documented by: Polyethylene Glycol (Polyethylene Glycol 3350 Powder 17 Gm Packet) 17 gm PO DAILY PRN PRN Reason: Constipation Rivaroxaban (Rivaroxaban 10 Mg Tab) 10 mg PO BEDTIME [facility] Last Admin: 09/28/21 20:26 Dose: 10 mg Documented by: Senna/Docusate Sodium (Docusate Sodium/Sennosides 50-8.6 Mg Tab) 2 tab PO BID PRN PRN Reason: Constipation Silver Sulfadiazine (Silver Sulfadiazine 1% Crm 50 Gm Tube) 0 gm TOP DAILY [facility] Last Admin: 09/28/21 08:35 Dose: 1 applic Documented by: Sitagliptin Phosphate (Sitagliptin 50 Mg Tab) 100 mg PO DAILY [facility] Last Admin: 09/29/21 09:22 Dose: 100 mg Documented by: Sodium Chloride (Sodium Chloride 0.9% 10 Ml Syringe) 10 ml FLUSH ASDIRECTED PRN PRN Reason: Keep Vein Open Last Admin: 09/28/21 15:56 Dose: 10 ml Documented by: Tamsulosin HCl (Tamsulosin 0.4 Mg Cap.Er) 0.4 mg PO DAILY [facility] Last Admin: 09/29/21 09:22 Dose: 0.4 mg Documented by: Trimethoprim/Sulfamethoxazole (Sulfamethoxazole/Trimethoprim 800-160 Mg Tab) 1 tab PO BID [facility] Last Admin: 09/29/21 09:23 Dose: 1 tab Documented by: Vit C/Vit E/Zinc/Copper/Lutein (Lutein/Minerals/Vitamin C/Vitamin E Acetate Cap) 1 each PO BID [facility] Last Admin: 09/29/21 09:23 Dose: 1 each Documented by: Discontinued Medications Azithromycin (Azithromycin 500 Mg Tab) 500 mg PO ONETIME ONE Stop: 09/25/21 10:01 Last Admin: 09/25/21 10:56 Dose: 500 mg Documented by: Azithromycin (Azithromycin 250 Mg Tab) 250 mg PO DAILY [facility] Stop: 09/29/21 09:01 Vancomycin HCl 1 gm/ Premix 200 mls @ 200 mls/hr IV Q12H [facility] Last Admin: 09/25/21 02:28 Dose: 200 mls/hr Documented by: Vancomycin HCl (Vancomycin 1.5 Gm/300 Ml) 300 mls @ 200 mls/hr IV Q12H [facility] Last Admin: 09/28/21 14:09 Dose: 200 mls/hr Documented by: Insulin Glargine (Insulin Glargine,Human Rec. Analog 100 Units/Ml 3 Ml Pen) 12 units SUBCUT BEDTIME [facility] Ketorolac Tromethamine (Ketorolac 30 Mg/Ml Sdv) 30 mg IVPUSH NOW STA Stop: 09/24/21 16:03 Last Admin: 09/24/21 16:12 Dose: 30 mg Documented by: Mometasone Furoate/Formoterol Fumar (Formoterol/Mometasone 200-5 Mcg 8.8 Gm Inhaler) 2 puff IH BID [facility] Last Admin: 09/24/21 20:32 Dose: 2 puff Documented by: Multivitamins/Minerals (Beta-Carotene (Vitamin A) W/Vitamin C & E Plus Minerals Tab) 1 tab PO BID [facility] Last Admin: 09/24/21 20:31 Dose: 1 tab Documented by: Oxycodone/Acetaminophen (Acetaminophen/Oxycodone 325-5 Mg Tab) 2 tab PO Q4H PRN PRN Reason: Pain (moderate 4-6) Last Admin: 09/24/21 16:13 Dose: 2 tab Documented by: Insulin Detemir Pen (*Pt Own Med*) 0 each SUBCUT BEDTIME [facility] Last Admin: 09/25/21 21:22 Dose: Not Given Documented by: Prednisone (Prednisone 20 Mg Tab) 20 mg PO WITHBREAKFAST [facility] Stop: 10/01/21 08:01 Last Admin: 09/27/21 08:00 Dose: 20 mg Documented by: Sitagliptin Phosphate (Sitagliptin 50 Mg Tab) 50 mg PO DAILY [facility] Last Admin: 09/28/21 08:34 Dose: 50 mg Documented by: Testosterone Cypionate (Testosterone Cypionate 2,000 Mg/10 Ml Mdv) 50 mg IM Tu@0900 [facility] Last Admin: 09/24/21 18:26 Dose: Not Given Documented by: Trimethoprim/Sulfamethoxazole (Sulfamethoxazole/Trimethoprim 800-160 Mg Tab) 1 tab PO BID [facility] Last Admin: 09/25/21 08:41 Dose: 1 tab Documented by: Vancomycin HCl (Pharmacy To Dose - Vancomycin) 1 dose .XX ASDIRECTED [facility] - Exam General: Alert, Oriented, Cooperative, No Acute Distress Lungs: Clear to Auscultation, Normal Respiratory Effort. No: Crackles, Wheezing Cardiovascular: Regular Rate, Regular Rhythm GI/Abdominal Exam: Normal Bowel Sounds, Soft, Non-Tender, No Distention Extremities: Pedal Edema (RLE). No: Increased Warmth Peripheral Pulses: 2+: Radial (L), Radial (R) Wound/Incisions: Drainage (scant), Erythema Improving (faint on LLE, foot to midcalf on RLE, improved from yesterday.) - Patient Data Lab Results Last 24 hrs: Laboratory Results - last 24 hr 09/28/21 09/29/21 09/29/21 Range/Units 20:20 06:40 06:40 WBC 8.2 (3.2-10.1) x10-3/uL RBC 5.12 (3.90-5.90) x10(6)uL Hgb 12.4 L (12.9-17.7) g/dL Hct 39.3 (38.3-50.1) % MCV 76.8 L (80.8-98.7) fL MCH 24.2 L (27.0-33.3) pg MCHC 31.6 (28.7-35.3) g/dL RDW 15.7 H (12.4-15.0) % Plt Count 231 (117-477) x10(3)uL MPV 7.0 (6.7-11.0) fL Neut % (Auto) 69.8 (40.3-71.8) % Lymph % (Auto) 16.3 (15.8-45.3) % [facility] [place] [facility] % (Auto) 8.0 (5.5-15.2) % Eos % (Auto) 5.2 (0.1-6.8) % Baso % (Auto) 0.7 (0.3-3.8) % Neut # (Auto) 5.7 (1.7-6.9) x10-3/uL Lymph # (Auto) 1.3 (0.5-4.5) x10-3/uL [facility] # (Auto) 0.7 (0.0-1.2) x10-3/uL Eos # (Auto) 0.4 (0.0-0.6) x10-3/uL Baso # (Auto) 0.1 (0.0-0.3) x10-3/uL Sodium 138 (135-145) mmol/L Potassium 3.5 (3.5-5.3) mmol/L Chloride 99 L (100-110) mmol/L Carbon Dioxide 35 H (21-32) mmol/L BUN 14 (7-18) mg/dL Creatinine 1.2 (0.70-1.30) mg/dL Est Cr Clr Drug Dosing 61.07 mL/min Estimated GFR (MDRD) 60 (>60) BUN/Creatinine Ratio 11.7 (9-20) Glucose 150 H (80-116) mg/dL POC Glucose 186 H (80-116) mg/dL Calcium 8.9 (8.6-10.2) mg/dL Result Diagrams: 09/29/21 06:40 09/29/21 06:40 Shai Results Last 24 hrs: Microbiology 09/25/21 10:52 Gram Stain - Final Skin / Skin Scrapings - Leg, Left Testing performed by: [address] [id number] SEE SEPARATE/SCANNED REPORT Routine Culture - Preliminary Testing performed by: [address] [id number] SEE SEPARATE/SCANNED REPORT 09/24/21 13:15 Aerobic Blood Culture - Preliminary Blood - Venous - Lab Draw NO GROWTH AFTER 4 DAYS Anaerobic Blood Culture - Preliminary NO GROWTH AFTER 4 DAYS 09/24/21 13:05 Aerobic Blood Culture - Preliminary Blood - Venous NO GROWTH AFTER 4 DAYS Anaerobic Blood Culture - Preliminary NO GROWTH AFTER 4 DAYS Sepsis Event Note - Evaluation Sepsis Screening Result: No Definite Risk - Focused Exam Vital Signs: Vital Signs Temp Temp Pulse Resp BP BP Pulse Ox 09/29/21 08:00 98.2 F 97 18 119/73 93 L 09/29/21 04:30 98.2 F 90 18 126/66 92 L 09/29/21 00:00 98.6 F 85 18 113/50 L 92 L - Problem List & Annotations (1) Cellulitis of left lower extremity SNOMED Code(s): 222470373 Code(s): L03.116 - CELLULITIS OF LEFT LOWER LIMB Status: Acute Current Visit: No (2) Cellulitis SNOMED Code(s): 091959307 Code(s): L03.90 - CELLULITIS, UNSPECIFIED Status: Acute Current Visit: Yes Qualifiers: Site of cellulitis: extremity Site of cellulitis of extremity: lower extremity Laterality: right Qualified Code(s): L03.115 - Cellulitis of right lower limb (3) COPD exacerbation SNOMED Code(s): 145243789 Code(s): J44.1 - CHRONIC OBSTRUCTIVE PULMONARY DISEASE W (ACUTE) EXACERBATION Status: Acute Current Visit: Yes Annotation/Comment:: Discontinue prednisone due to rash/itching. Chart updated as to his reaction. (4) Diabetes SNOMED Code(s): 60731234 Code(s): E11.9 - TYPE 2 DIABETES MELLITUS WITHOUT COMPLICATIONS Status: Chronic Current Visit: Yes (5) Venous stasis dermatitis of both lower extremities SNOMED Code(s): 92729037 Code(s): I87.2 - VENOUS INSUFFICIENCY (CHRONIC) (PERIPHERAL) Status: Chronic Current Visit: No (6) History of MRSA infection SNOMED Code(s): 471801367, 597708507 Code(s): Z86.14 - PERSONAL HISTORY OF METHICILLIN RESIS STAPH INFECTION Status: Acute Current Visit: No (7) Palliative care status SNOMED Code(s): 368334426 Code(s): Z51.5 - ENCOUNTER FOR PALLIATIVE CARE Status: Chronic Current Visit: No - Problem List Review Problem List Initiated/Reviewed/Updated: Yes - My Orders Last 24 Hours: My Active Orders 09/29/21 09:00 SitaGLIPtin [Januvia] 100 mg PO DAILY - Plan Plan:: 1. Cellulitis, BLE: improving. Day 6 of Rocephin, day 3 Bactrim DS. WBC 8.2 Klebsiella, Enterobacter, Stenotrophomonas & Staph aureus(MSSA) sensitive to Bactrim & Rocephin(3/4). ID/SHAI pending on strep. Will adjust antibiotics to sensitivities once all back. Since staph is methicillin sensitive, sensitive to Rocephin & Bactrim discontinued Vancomycin yesterday. 2. COPD: Hydroxyzine 25 mg tid as needed itching is ordered, has not received. Also can do Camphor/menthol cream if needed itching. Dulera substituted for Symbicort. Tolerates his inhalers in regards to his prednisone allergy. 3. DM: Januvia 100 mg daily substituted for Alogliptin 25 mg daily, Continue Levemir 15 units at bedtime. Adjust as necessary. 4. Disposition: anticipate possible discharge tomorrow once sensitivities are back in regards to wound culture. [facility] for dressing changes, OT when he goes home.
[2021-09-29] MEDS: CERAMIDES TP SCH (10:24)
[2021-09-29] MEDS: Silver Sulfadiazine 1% Crm 50 GM Tube TOP SCH (10:24)
[2021-09-29] MEDS: Furosemide 40 MG Tab PO SCH (12:54)
[2021-09-29] MEDS: cefTRIAXone 1 GM Vial IVPUSH SCH (14:45)
[2021-09-29] MEDS: Sodium Chloride 0.9% 10 ML Syringe FLUSH PRN (15:15)
[2021-09-29] MEDS: Rivaroxaban 10 MG Tab PO SCH (21:43)
[2021-09-29] MEDS: INSULIN DETEMIR 100 UNIT/ML SQ SCH (21:45)
[2021-09-29] MEDS: [UNRECOGNIZED DRUG - OTHER] SQ SCH (21:45)
[2021-09-30] MEDS: Pantoprazole 20 MG Tab, Delayed Release PO SCH (06:29)
[2021-09-30] MEDS: Tamsulosin 0.4 MG Cap.ER PO SCH (08:03)
[2021-09-30] MEDS: Furosemide 80 MG Tab PO SCH (08:03)
[2021-09-30] MEDS: Lutein/Minerals/Vitamin C/Vitamin E Acetate Cap PO SCH (08:04)
[2021-09-30] MEDS: Calcium Carbonate 500 MG Tablet PO SCH (08:04)
[2021-09-30] MEDS: Sulfamethoxazole/Trimethoprim 800-160 MG Tab PO SCH (08:05)
[2021-09-30] MEDS: Finasteride 5 MG Tab PO SCH (08:05)
[2021-09-30] MEDS: Multivitamins with Iron/Calcium/Folic Acid/Minerals Tab PO SCH (08:05)
[2021-09-30] MEDS: Cholecalciferol (Vitamin D3) 25 MCG Tab PO SCH (08:06)
[2021-09-30] MEDS: Vitamin B Complex with Vitamin C Tab PO SCH (08:06)
[2021-09-30] MEDS: Formoterol/Mometasone 200-5 MCG 8.8 GM Inhaler IH SCH (08:11)
[2021-09-30] MEDS: Gabapentin 300 MG Cap PO SCH (08:12)
[2021-09-30] MEDS: CERAMIDES TP SCH (09:41)
[2021-09-30] MEDS: Silver Sulfadiazine 1% Crm 50 GM Tube TOP SCH (09:41)
[2021-09-30] MEDS ORDERED: cefTRIAXone 1 GM Vial IVPUSH ONE (11:00)
[2021-09-30] MEDS: Furosemide 40 MG Tab PO SCH (11:29)
[2021-09-30] MEDS: Sodium Chloride 0.9% 10 ML Syringe FLUSH PRN (11:33)
--- NOTE | 2021-09-30 14:22 | PCM.DCSUM1 ---
Discharge Summary - Hospital Course HPI Initial Comments: Is a 71-year-old male patient with lots of chronic medical problems including diabetes and recurrent cellulitis in the legs. He says for the last 7 days been having left foot pain and then he says it and worsening coordination and not feeling well. Home health saw many she told him to go to the ER per ambulance and he was seen. Patient states he has had increased cough and shortness of breath and wheezing. He does have COPD. He was found to have according to the ER doc of pneumonia and a cellulitis in the left lower leg was admitted. He has had some fevers and chills and body aches. Feeling very fatigued. Says he has ulcers in the left lower leg and little bit on the right lower leg also. [facility] and has been wrapping them with Coban to keep the swelling down. And that has been going on since March. Diagnosis: Stroke: No - Discharge Data Discharge Date: 09/30/21 Discharge Disposition: Home, W Home Health Agency 06 Condition: Good - Referral to Home Health Date of Face to Face Encounter: 09/30/21 Reason for Homebound Status: limited mobility Primary Care Physician: Duarte Broussard MD Skilled Need: half-way for medications managment/education and dressing changes, needs daily and will go to ER when HH is unavailable. - Discharge Diagnosis/Problem(s) (1) Cellulitis of left lower extremity SNOMED Code(s): 378465738 ICD Code: L03.116 - CELLULITIS OF LEFT LOWER LIMB Status: Acute Problem Details: Improving (2) Cellulitis SNOMED Code(s): 809706044 ICD Code: L03.90 - CELLULITIS, UNSPECIFIED Status: Acute Qualifiers: Site of cellulitis: extremity Site of cellulitis of extremity: lower extremity Laterality: right Qualified Code(s): L03.115 - Cellulitis of right lower limb (3) COPD exacerbation SNOMED Code(s): 875591876 ICD Code: J44.1 - CHRONIC OBSTRUCTIVE PULMONARY DISEASE W (ACUTE) EXACERBATION Status: Acute Problem Details: Discontinue prednisone due to rash/itching. Chart updated as to his reaction. (4) Diabetes SNOMED Code(s): 30807081 ICD Code: E11.9 - TYPE 2 DIABETES MELLITUS WITHOUT COMPLICATIONS Status: Chronic (5) Venous stasis dermatitis of both lower extremities SNOMED Code(s): 49489683 ICD Code: I87.2 - VENOUS INSUFFICIENCY (CHRONIC) (PERIPHERAL) Status: Chronic (6) History of MRSA infection SNOMED Code(s): 542448306, 049601692 ICD Code: Z86.14 - PERSONAL HISTORY OF METHICILLIN RESIS STAPH INFECTION Status: Acute (7) Palliative care status SNOMED Code(s): 758450344 ICD Code: Z51.5 - ENCOUNTER FOR PALLIATIVE CARE Status: Chronic - Patient Summary/Data Consults: Consultations 09/25/21 09:50 Consult to Occupational Therapy [OT Evaluation and Treatment] [CONS] Routine Please Evaluate and Treat. OT Reason for Consult: Strengthening This query below is only for informational purposes and is not editable. Admission Diagnosis/Problem: Cellulitis Consult to Physical Therapy [PT Evaluation and Treatment] [CONS] Routine Please Evaluate and Treat. PT Reason for Consult: Strengthening This query below is only for informational purposes and is not editable. Admission Diagnosis/Problem: Cellulitis Hospital Course: CXR in ER questioned lung nodule and pneumonia, was started on Rocephin & Azithromycin in ER for questionable pneumonia and cellulitis, Vancomycin for history of MRSA infection. CT chest showed no pneumonia or lung mass so Azithromycin was discontinued. Prednisone was started for COPD exacerbation but discontinued after 2 doses as he had macular rash with itching on his back. It lynette improved with Hydroxyzine. BS 120-180s fasting and 180s-290s in evening, Alogliptin substituted with Januvia 50 mg x 1 then 100 mg remainder of his stay. Wheezing improved with inhalers. Cr was stable at 1.3. Vancomycin trough 14.9. Wound culture was obtained on admission and came back over the weekend positive for: Klebsiella, Enterobacter, Stenotrophomonas, Staph sensitive to methicillin and group B strep. Vancomycin was discontinue when staph ID results came back. Group B strep sensitive to Rocephin and remaining bacteria was sensitive to Bactrim and Rocephin. Received 7 days of Rocephin and 3 days of Bactrim DS. His cellulitis and venous ulcers improved with treatment, scant drainage at discharge. He will go home with Home Health services for dressing changes, medications management and education. Days that Home Health are unavailable for dressing changes he will come to [place] [facility] to have done. He was discharged on Bactrim DS bid x 7 days. Follow up with Dr Broussard to recheck cellulitis if he needs antibiotic course extended. - Patient Instructions Diet: Diabetic Diet Activity: As Tolerated Driving: Do Not Drive Showering/Bathing: May Shower Wound/Incision Care: Change Dressing Daily Notify Provider of: Fever, Increased Pain, Swelling and Redness, Drainage Other/Special Instructions: Follow up with Dr Broussard in 1 week to recheck cellulitis. Daily dressing changes per Home Health and when unavailable will come to ER. Take Bactrim DS 1 tab twice a day for 7 more days until gone. - Discharge Plan *PRESCRIPTION DRUG MONITORING PROGRAM REVIEWED*: Yes *COPY OF PRESCRIPTION DRUG MONITORING REPORT IN PATIENT ELINA: Not Applicable Prescriptions/Med Rec: Acetaminophen/oxyCODONE [Percocet 325-5 MG] 1 tab PO Q6HR PRN #12 tablet PRN Reason: Pain (Moderate 4-6) Sulfamethoxazole/Trimethoprim [Septra DS] 1 tab PO BID #14 tablet Home Medications: Home Meds Albuterol Sulfate [Albuterol Sulfate HFA] 2 puff INH Q4H PRN 06/11/14 [History] Finasteride [Proscar] 5 mg PO DAILY 06/11/14 [History] Furosemide [Lasix] 80 mg PO DAILY@0800 06/11/14 [History] Multivitamin with Minerals [Vsw-D-Bozy-Minerals] 1 tab PO DAILY 06/11/14 [History] Tamsulosin [Flomax] 0.4 mg PO DAILY 06/11/14 [History] Testosterone Cypionate [Depo-Testosterone] 50 mg IM TU 06/11/14 [History] Calcium Carbonate [Calcium] 600 mg PO BID 12/22/20 [History] Furosemide [Lasix] 40 mg PO DAILY@1200 12/22/20 [History] Gabapentin [Neurontin] 300 mg PO TID 12/22/20 [History] Omeprazole 20 mg PO BID 12/22/20 [History] Rivaroxaban [Xarelto] 10 mg PO BEDTIME 12/22/20 [History] Vit C/E/Zn/Coppr/Lutein/Zeaxan [Preservision Areds 2 Softgel] 1 each PO BID 12/22/20 [History] Budesonide/Formoterol [Symbicort 160-4.5 MCG] 2 puff IH BID 02/15/21 [History] Ceramide 1,3,6-II/Salicylic/B3 [Cerave SA Cream] 1 applic TOP DAILY 02/15/21 [History] Cholecalciferol (Vitamin D3) [Vitamin D3] 50 mcg PO DAILY 02/15/21 [History] Dextran 70/Hypromellose [Artificial Tears] 1 drop EYEBOTH QID PRN 02/15/21 [History] Sennosides/Docusate Sodium [Senna-S] 2 tab PO BID PRN 02/15/21 [History] Vitamin B Complex 1 tab PO BID 02/15/21 [History] hydrOXYzine HCL [hydrOXYzine] 25 mg PO TID PRN 02/15/21 [History] polyethylene glycoL 3350 [MiraLAX] 17 gm PO DAILY PRN 02/15/21 [History] Acetaminophen [Tylenol] 650 mg PO Q6H PRN tablet 04/03/21 [Rx] Silver Sulfadiazine [Silvadene 1% Cream 50 GM] 5 gm TOP DAILY #50 g 04/03/21 [Rx] Insulin Detemir [Levemir Flextouch] 15 unit SQ BEDTIME 09/24/21 [History] Alogliptin Benzoate [Alogliptin] 25 mg PO DAILY 09/27/21 [History] Acetaminophen/oxyCODONE [Percocet 325-5 MG] 1 tab PO Q6HR PRN #12 tablet 09/30/21 [Rx] Sulfamethoxazole/Trimethoprim [Septra DS] 1 tab PO BID #14 tablet 09/30/21 [Rx] Oxygen Therapy Mode: Room Air Patient Handouts: Cellulitis, Adult, Fall Prevention in Hospitals, Adult, Venous Thromboembolism Prevention Forms: ED Department Discharge Referrals: Duarte Broussard MD [Primary Care Provider] - - Discharge Summary/Plan Comment DC Time >30 min.: Yes Total # of Minutes for Discharge Time: 30 min - General Info Date of Service: 09/30/21 Subjective Update: Cristian is feeling better. Swelling in his right foot is down. No wheezing today. Itching has improved with his back. Does need help with dressing changes as he cannot get his right foot up enough to do himself. No fevers. No chills. - Patient Data Vitals - Most Recent: Last Vital Signs Temp 98.4 F 09/30/21 08:00 Pulse 87 09/30/21 08:00 Resp 20 09/30/21 08:00 BP 124/69 09/30/21 08:00 Pulse Ox 91 L 09/30/21 08:00 Weight - Most Recent: 282 lb 11.2 oz Lab Results - Last 24 hrs: Laboratory Results - last 24 hr 09/29/21 09/30/21 Range/Units 17:29 06:32 POC Glucose 234 H 180 H (80-116) mg/dL [facility] Results - Last 24 hrs: Microbiology 09/24/21 13:15 Aerobic Blood Culture - Final Blood - Venous - Lab Draw NO GROWTH AFTER 5 DAYS Anaerobic Blood Culture - Final NO GROWTH AFTER 5 DAYS 09/24/21 13:05 Aerobic Blood Culture - Final Blood - Venous NO GROWTH AFTER 5 DAYS Anaerobic Blood Culture - Final NO GROWTH AFTER 5 DAYS 09/25/21 10:52 Gram Stain - Final Skin / Skin Scrapings - Leg, Left Testing performed by: [address] [id number] SEE SEPARATE/SCANNED REPORT Routine Culture - Final Testing performed by: [address] [id number] SEE SEPARATE/SCANNED REPORT Med Orders - Current: Current Medications Discontinued Medications Acetaminophen (Acetaminophen 325 Mg Tab) 650 mg PO Q6H PRN PRN Reason: Pain Last Admin: 09/25/21 02:37 Dose: 650 mg Documented by: Albuterol (Albuterol 8 Gm Inhaler) 0 gm INH Q4H PRN PRN Reason: Shortness of Breath Last Admin: 09/29/21 13:30 Dose: 2 puff Documented by: Artificial Tears (Polyvinyl Alcohol 1.4% Ophth Soln 15 Ml Bottle) 0 ml EYEBOTH QID PRN PRN Reason: DRY EYES Azithromycin (Azithromycin 500 Mg Tab) 500 mg PO ONETIME ONE Stop: 09/25/21 10:01 Last Admin: 09/25/21 10:56 Dose: 500 mg Documented by: Azithromycin (Azithromycin 250 Mg Tab) 250 mg PO DAILY [facility] Stop: 09/29/21 09:01 Calcium Carbonate/Glycine (Calcium Carbonate 500 Mg Tablet) 500 mg PO BID [facility] Last Admin: 09/30/21 08:04 Dose: 500 mg Documented by: Ceftriaxone Sodium (Ceftriaxone 1 Gm Vial) 1 gm IVPUSH Q24H [facility] Last Admin: 09/29/21 14:45 Dose: 1 gm Documented by: Ceftriaxone Sodium (Ceftriaxone 1 Gm Vial) 1 gm IVPUSH ONETIME ONE Stop: 09/30/21 11:01 Last Admin: 09/30/21 11:30 Dose: 1 gm Documented by: Cholecalciferol (Cholecalciferol (Vitamin D3) 25 Mcg Tab) 50 mcg PO DAILY [facility] Last Admin: 09/30/21 08:06 Dose: 50 mcg Documented by: Finasteride (Finasteride 5 Mg Tab) 5 mg PO DAILY [facility] Last Admin: 09/30/21 08:05 Dose: 5 mg Documented by: Furosemide (Furosemide 40 Mg Tab) 40 mg PO DAILY@1200 [facility] Last Admin: 09/30/21 11:29 Dose: 40 mg Documented by: Furosemide (Furosemide 80 Mg Tab) 80 mg PO DAILY@0800 [facility] Last Admin: 09/30/21 08:03 Dose: 80 mg Documented by: Gabapentin (Gabapentin 300 Mg Cap) 300 mg PO TID [facility] Last Admin: 09/30/21 08:12 Dose: 300 mg Documented by: Hydroxyzine HCl (Hydroxyzine Hcl 25 Mg Tab) 25 mg PO TID PRN PRN Reason: Itching Last Admin: 09/29/21 12:54 Dose: 25 mg Documented by: Vancomycin HCl 1 gm/ Premix 200 mls @ 200 mls/hr IV Q12H [facility] Last Admin: 09/25/21 02:28 Dose: 200 mls/hr Documented by: Vancomycin HCl (Vancomycin 1.5 Gm/300 Ml) 300 mls @ 200 mls/hr IV Q12H [facility] Last Admin: 09/28/21 14:09 Dose: 200 mls/hr Documented by: Insulin Glargine (Insulin Glargine,Human Rec. Analog 100 Units/Ml 3 Ml Pen) 12 units SUBCUT BEDTIME [facility] Ketorolac Tromethamine (Ketorolac 30 Mg/Ml Sdv) 30 mg IVPUSH NOW STA Stop: 09/24/21 16:03 Last Admin: 09/24/21 16:12 Dose: 30 mg Documented by: Miscellaneous Medication (Ceramides 1,3,6-11 340 Gm Cream) 0 gm TP DAILY [facility] Last Admin: 09/30/21 09:41 Dose: 1 applic Documented by: Mometasone Furoate/Formoterol Fumar (Formoterol/Mometasone 200-5 Mcg 8.8 Gm Inhaler) 2 puff IH BID [facility] Last Admin: 09/24/21 20:32 Dose: 2 puff Documented by: Mometasone Furoate/Formoterol Fumar (Formoterol/Mometasone 200-5 Mcg 8.8 Gm Inhaler) 0 puff IH BID [facility] Last Admin: 09/30/21 08:11 Dose: 2 puff Documented by: Morphine Sulfate (Morphine 2 Mg/Ml Syringe) 2 mg IVPUSH Q2H PRN PRN Reason: Pain (severe 7-10) Multivitamins (Vitamin B Complex With Vitamin C Tab) 1 each PO BID [facility] Last Admin: 09/30/21 08:06 Dose: 1 each Documented by: Multivitamins/Minerals (Multivitamins With Iron/Calcium/Folic Acid/Minerals Tab) 1 tab PO DAILY [facility] Last Admin: 09/30/21 08:05 Dose: 1 tab Documented by: Multivitamins/Minerals (Beta-Carotene (Vitamin A) W/Vitamin C & E Plus Minerals Tab) 1 tab PO BID [facility] Last Admin: 09/24/21 20:31 Dose: 1 tab Documented by: Daniel Lubintouch] 100 Unit/Ml Insuln. Pen *Ptom 15 unit SQ BEDTIME [facility] Last Admin: 09/29/21 21:45 Dose: 15 unit Documented by: Ondansetron HCl (Ondansetron 4 Mg/2 Ml Sdv) 4 mg IV Q4H PRN PRN Reason: Nausea/Vomiting Oxycodone/Acetaminophen (Acetaminophen/Oxycodone 325-5 Mg Tab) 2 tab PO Q4H PRN PRN Reason: Pain (moderate 4-6) Last Admin: 09/24/21 16:13 Dose: 2 tab Documented by: Oxycodone/Acetaminophen (Acetaminophen/Oxycodone 325-5 Mg Tab) 1 tab PO Q4H PRN PRN Reason: Pain (moderate 4-6) Last Admin: 09/29/21 21:49 Dose: 1 tab Documented by: Pantoprazole Sodium (Pantoprazole 20 Mg Tab, Delayed Release) 20 mg PO BID@0730,2100 [facility] Last Admin: 09/30/21 06:29 Dose: 20 mg Documented by: Insulin Detemir Pen (*Pt Own Med*) 0 each SUBCUT BEDTIME [facility] Last Admin: 09/25/21 21:22 Dose: Not Given Documented by: Polyethylene Glycol (Polyethylene Glycol 3350 Powder 17 Gm Packet) 17 gm PO DAILY PRN PRN Reason: Constipation Prednisone (Prednisone 20 Mg Tab) 20 mg PO WITHBREAKFAST [facility] Stop: 10/01/21 08:01 Last Admin: 09/27/21 08:00 Dose: 20 mg Documented by: Rivaroxaban (Rivaroxaban 10 Mg Tab) 10 mg PO BEDTIME [facility] Last Admin: 09/29/21 21:43 Dose: 10 mg Documented by: Senna/Docusate Sodium (Docusate Sodium/Sennosides 50-8.6 Mg Tab) 2 tab PO BID PRN PRN Reason: Constipation Silver Sulfadiazine (Silver Sulfadiazine 1% Crm 50 Gm Tube) 0 gm TOP DAILY [facility] Last Admin: 09/30/21 09:41 Dose: 1 applic Documented by: Sitagliptin Phosphate (Sitagliptin 50 Mg Tab) 50 mg PO DAILY [facility] Last Admin: 09/28/21 08:34 Dose: 50 mg Documented by: Sitagliptin Phosphate (Sitagliptin 50 Mg Tab) 100 mg PO DAILY [facility] Last Admin: 09/29/21 09:22 Dose: 100 mg Documented by: Sitagliptin Phosphate (Sitagliptin 100 Mg Tab) 100 mg PO DAILY [facility] Last Admin: 09/30/21 08:15 Dose: 100 mg Documented by: Sodium Chloride (Sodium Chloride 0.9% 10 Ml Syringe) 10 ml FLUSH ASDIRECTED PRN PRN Reason: Keep Vein Open Last Admin: 09/30/21 11:33 Dose: 10 ml Documented by: Tamsulosin HCl (Tamsulosin 0.4 Mg Cap.Er) 0.4 mg PO DAILY [facility] Last Admin: 09/30/21 08:03 Dose: 0.4 mg Documented by: Testosterone Cypionate (Testosterone Cypionate 2,000 Mg/10 Ml Mdv) 50 mg IM Tu@0900 [facility] Last Admin: 09/24/21 18:26 Dose: Not Given Documented by: Trimethoprim/Sulfamethoxazole (Sulfamethoxazole/Trimethoprim 800-160 Mg Tab) 1 tab PO BID [facility] Last Admin: 09/25/21 08:41 Dose: 1 tab Documented by: Trimethoprim/Sulfamethoxazole (Sulfamethoxazole/Trimethoprim 800-160 Mg Tab) 1 tab PO BID [facility] Last Admin: 09/30/21 08:05 Dose: 1 tab Documented by: Vancomycin HCl (Pharmacy To Dose - Vancomycin) 1 dose .XX ASDIRECTED [facility] Vit C/Vit E/Zinc/Copper/Lutein (Lutein/Minerals/Vitamin C/Vitamin E Acetate Cap) 1 each PO BID [facility] Last Admin: 09/30/21 08:04 Dose: 1 each Documented by: - Exam General: Reports: Alert, Oriented, Cooperative, No Acute Distress Lungs: Reports: Clear to Auscultation, Normal Respiratory Effort. Denies: Crackles, Wheezing Cardiovascular: Reports: Regular Rate, Regular Rhythm GI/Abdominal Exam: Normal Bowel Sounds, Soft, Non-Tender, No Distention Extremities: Pedal Edema (1+ RLE) Wound/Incisions: Reports: Drainage (scant), Erythema Improving (swelling down right foot, can feel bones; erythema receded midshin to ankle on right; LLE erythema resolved, underlying stasis dermatitis; ulcerations healing well)
== END 2021-09-30 12:10 | disposition home health service (06) | DRG 603 ==
LOC: FB.ED 12:14 → FB.MS 17:07
PROVIDERS: ADMIT Family Medicine; ATTEND Family Medicine
DX: L03.116 Cellulitis of left lower limb (principal); J44.1 Chronic obstructive pulmonary disease with (acute) exacerbation; J18.9 Pneumonia, unspecified organism; J44.0 Chronic obstructive pulmonary disease with (acute) lower respiratory infection; L03.115 Cellulitis of right lower limb; A49.02 Methicillin resistant Staphylococcus aureus infection, unspecified site; E11.9 Type 2 diabetes mellitus without complications; I87.2 Venous insufficiency (chronic) (peripheral); G47.30 Sleep apnea, unspecified; R21 Rash and other nonspecific skin eruption; K21.9 Gastro-esophageal reflux disease without esophagitis; M19.90 Unspecified osteoarthritis, unspecified site; E11.40 Type 2 diabetes mellitus with diabetic neuropathy, unspecified; I10 Essential (primary) hypertension; K59.09 Other constipation; Z85.72 Personal history of non-Hodgkin lymphomas; Z86.718 Personal history of other venous thrombosis and embolism; N39.3 Stress incontinence (female) (male); G43.909 Migraine, unspecified, not intractable, without status migrainosus; Z88.0 Allergy status to penicillin; F32.A Depression, unspecified; B96.1 Klebsiella pneumoniae [K. pneumoniae] as the cause of diseases classified elsewhere; B95.61 Methicillin susceptible Staphylococcus aureus infection as the cause of diseases classified elsewhere; Z79.51 Long term (current) use of inhaled steroids; E66.9 Obesity, unspecified; D64.9 Anemia, unspecified; I87.8 Other specified disorders of veins; Z96.641 Presence of right artificial hip joint; J40 Bronchitis, not specified as acute or chronic; Z98.49 Cataract extraction status, unspecified eye; Z86.14 Personal history of Methicillin resistant Staphylococcus aureus infection; Z51.5 Encounter for palliative care; Z79.899 Other long term (current) drug therapy; Z79.4 Long term (current) use of insulin; Z79.01 Long term (current) use of anticoagulants; Z88.1 Allergy status to other antibiotic agents; Z88.5 Allergy status to narcotic agent; Z88.8 Allergy status to other drugs, medicaments and biological substances; Z20.822 Contact with and (suspected) exposure to COVID-19; B96.89 Other specified bacterial agents as the cause of diseases classified elsewhere
CPT/HCPCS: 36415; 71045; 80053; 83605; 83880; 84484; 85025; 86140; 87040 ×2; 87635; 93005; 96365; 99285; A9270; J0696; J1885; J3370; 76380; 80048; 80202; 82947; 87070; 87077; 87186; 87205; 97161-GP; 97165-GO; 97530-GO; 97535-GO; 99223; 99232; 99238; J1815-GY; J7512; U0002

== ENCOUNTER 2022-01-20 12:25 | Emergency (ER) | payer MEDICARE, OTHER ==
[2022-01-20] MEDS ORDERED: Sodium Chloride 0.9% 10 ML Syringe FLUSH PRN (13:16)
[2022-01-20] MEDS ORDERED: Sodium Chloride 0.9% 1,000 ML IV ONE (13:16)
[2022-01-20] MEDS ORDERED: cefTRIAXone 1 GM in Sodium Chloride 0.9% 50 ML IV SCH (13:30)
[2022-01-20] MEDS ORDERED: Ketorolac 30 MG/ML SDV IVPUSH STA (14:11)
[2022-01-20] MEDS ORDERED: cefTRIAXone 1 GM Vial IVPUSH ONE (14:30)
[2022-01-20] MEDS ORDERED: VANCOmycin 1.75 GM/350 ML 350 ML IV ONE (15:15)
== END 2022-01-20 17:25 ==
LOC: FB.ED 12:25
DX: L03.116 Cellulitis of left lower limb (principal); E11.40 Type 2 diabetes mellitus with diabetic neuropathy, unspecified; E78.00 Pure hypercholesterolemia, unspecified; I10 Essential (primary) hypertension; J44.9 Chronic obstructive pulmonary disease, unspecified; K21.9 Gastro-esophageal reflux disease without esophagitis; Z87.891 Personal history of nicotine dependence; E66.9 Obesity, unspecified; Z68.30 Body mass index [BMI] 30.0-30.9, adult; Z88.0 Allergy status to penicillin; Z88.1 Allergy status to other antibiotic agents; Z88.5 Allergy status to narcotic agent; Z91.048 Other nonmedicinal substance allergy status; Z79.899 Other long term (current) drug therapy; Z79.4 Long term (current) use of insulin; Z86.14 Personal history of Methicillin resistant Staphylococcus aureus infection
CPT/HCPCS: 36415; 71045; 80053; 81001; 83605; 85025; 86140; 87040; 96365; 96366; 96375; 99283; 99285-25; J0696; J1885; J3370; J3490; J7030; U0002

== ENCOUNTER 2022-04-29 19:56 | Emergency (ER) | payer OTHER ==
[2022-04-29] MEDS ORDERED: Sodium Chloride 0.9% 10 ML Syringe FLUSH PRN (20:20)
[2022-04-29] MEDS ORDERED: VANCOmycin 1.5 GM/300 ML 1.5 GM in Premix Bag 1 BAG IV ONE (21:04)
[2022-04-29 21:13] LABS: ESTIMATED GFR 37 mL/min (>60)
[2022-04-29] MEDS ORDERED: Acetaminophen 500 MG Tab PO STA (22:04)
== END 2022-04-29 22:30 ==
LOC: FB.ED 19:56
DX: L03.115 Cellulitis of right lower limb (principal); J44.9 Chronic obstructive pulmonary disease, unspecified; E11.9 Type 2 diabetes mellitus without complications; B95.62 Methicillin resistant Staphylococcus aureus infection as the cause of diseases classified elsewhere; I10 Essential (primary) hypertension; E66.9 Obesity, unspecified; Z68.38 Body mass index [BMI] 38.0-38.9, adult; Z88.1 Allergy status to other antibiotic agents; Z88.5 Allergy status to narcotic agent; Z88.8 Allergy status to other drugs, medicaments and biological substances; Z88.0 Allergy status to penicillin; Z79.899 Other long term (current) drug therapy; Z79.4 Long term (current) use of insulin; Z20.822 Contact with and (suspected) exposure to COVID-19
CPT/HCPCS: 36415; 71045; 80053; 83605; 85025; 85379; 86140; 87040; 87077; 87635; 96365; 99285; A9270; J3370; J3490; U0002